=== PATIENT | male | born 1940 | race Caucasian/White ===

== ENCOUNTER 2024-03-18 08:02 | Outpatient (OUT) | payer MEDICARE, OTHER, SELFPAY ==
--- NOTE | 2024-03-18 08:32 | XR_ITS ---
The [address] [address] Patient Name: JERAD CARRANZA MRN: [id number] date: 1940 Sex: M Assigned Patient Location: LAB Current Patient Location: Accession/Order Number: [id number] Exam Date: 03/18/2024 08:42 Report Date: 03/19/2024 04:58 At the request of: EDVIN HANKS Procedure: XR chest 2V EXAMINATION: XR chest 2V HISTORY: Dyspnea On Exertion, Mucopurulent Chronic Bronchitis COMPARISON: XR ribs with chest 11/19/2018 FINDINGS: LUNGS: Stable small dense nodule lateral right upper lobe, likely granuloma. Mild chronic interstitial changes. No acute infiltrates. VASCULATURE: No increased pulmonary vasculature. PLEURA: No pneumothorax, effusion, or pleural thickening. CARDIAC: No cardiomegaly or cardiac silhouette abnormality. MEDIASTINUM: No visible mass or adenopathy. BONES: No fracture or visible bone lesion. OTHER: Negative. XR/XR chest 2V IMPRESSION: 1. No acute cardiopulmonary process. 2. Stable mild chronic interstitial changes. Electronically authenticated by: ELIS LAZO Date: 03/19/2024 04:58
[2024-03-18 08:44] LABS: Basophils Absolute Auto 0.1 10^3/uL (0.0-0.1); Basophils Percent Auto 0.9 % (0.2-2.0); Eosinophils Absolute Auto 0.1 10^3/uL (0.0-0.7); Eosinophils Percent Auto 2.4 % (0.9-7.0); Hematocrit 46.4 % (42.0-54.0); Hemoglobin 15.2 g/dL (14.0-18.0); Immature Granulocytes Abs Auto 0.02 10^3/uL (0.00-0.03); Immature Granulocytes Pct Auto 0.4 % (0.0-0.5); Lymphocytes Absolute Auto 1.2 10^3/uL (1.2-3.8); Lymphocytes Percent Auto 22.2 % (20.5-60.0); Mean Corpuscular HGB Conc 32.8 g/dL (29.9-35.2); Mean Corpuscular Hemoglobin 31.3 pg (25.9-34.0); Mean Corpuscular Volume 95.7 fL (80.0-94.0); Mean Platelet Volume 11.4 fL (9.5-13.5); Monocytes Absolute Auto 0.5 10^3/uL (0.3-0.8); Monocytes Percent Auto 8.3 % (1.7-12.0); Neutrophils Absolute Auto 3.6 10^3/uL (1.4-6.5); Neutrophils Percent Auto 65.8 % (43.0-75.0); Platelet Count 172 10^3/uL (150-450); Red Blood Count 4.85 10^6/uL (4.70-6.10); Red Cell Distribution Width 12.8 % (11.0-15.0); White Blood Count 5.5 10^3/uL (4.0-11.0)
[2024-03-18 08:56] LABS: Microalbumin Urine Random <1.3 mg/dL (<=30.0)
[2024-03-18 09:15] LABS: Alanine Aminotransferase 24 U/L (16-63); Albumin Globulin Ratio 1.1; Alkaline Phosphatase 85 U/L (46-116); Anion Gap 12.2; Aspartate Amino Transferase 14 U/L (15-37); BUN Creatinine Ratio 16.2; Calcium 9.4 mg/dL (8.5-10.1); Carbon Dioxide 29.2 mmol/L (21.0-32.0); Chloride 104 mmol/L (98-107); Chol HDL Ratio 3.5; Cholesterol 160 mg/dL (<=200); Estimated GFR (African America >60 (>=60 mL/min/1.73m^2); Estimated GFR (Non-African Ame >60 (>=60 mL/min/1.73m^2); Globulin 3.6 g/dL; Glucose 124 mg/dL (74-106); HDL Cholesterol 46 mg/dL (40-60); LDL Cholesterol Calculated 85.4 mg/dL; Potassium 4.4 mmol/L (3.5-5.1); Sodium 141 mmol/L (136-145); Thyroid Stimulating Hormone 2.764 uIU/mL (0.358-3.740); Total Protein 7.6 g/dL (6.4-8.2); Triglycerides 143 mg/dL (<=150); VLDL CHOLESTEROL 28.6 mg/dL
[2024-03-18 09:30] LABS: Estimated Average Glucose 126 mg/dL
[2024-03-19 08:12] LABS: Prolactin 13.1 ng/mL (3.6-32.0)
== END 2024-03-18 08:03 | disposition home or self-care (01) ==
LOC: LAB 08:12
PROVIDERS: PCP Internal Medicine; Visit Provider Internal Medicine
DX: E11.65 Type 2 diabetes mellitus with hyperglycemia (principal); E22.1 Hyperprolactinemia; E78.00 Pure hypercholesterolemia, unspecified; J41.1 Mucopurulent chronic bronchitis; I10 Essential (primary) hypertension; R53.83 Other fatigue; R06.09 Other forms of dyspnea
CPT/HCPCS: 36415; 71046; 80053; 80061; 82043; 83036; 84146; 84443; 85025

== ENCOUNTER 2024-08-16 12:12 | Outpatient (OUT) | payer MEDICARE, OTHER, SELFPAY ==
[2024-08-16 12:31] LABS: Basophils Percent Auto 0.3 % (0.2-2.0); Eosinophils Percent Auto 0.1 % (0.9-7.0); Hematocrit 43.4 % (42.0-54.0); Hemoglobin 14.7 g/dL (14.0-18.0); Immature Granulocytes Abs Auto 0.03 10^3/uL (0.00-0.03); Immature Granulocytes Pct Auto 0.3 % (0.0-0.5); Lymphocytes Absolute Auto 0.8 10^3/uL (1.2-3.8); Lymphocytes Percent Auto 8.4 % (20.5-60.0); Mean Corpuscular HGB Conc 33.9 g/dL (29.9-35.2); Mean Corpuscular Hemoglobin 31.5 pg (25.9-34.0); Mean Corpuscular Volume 93.1 fL (80.0-94.0); Mean Platelet Volume 11.3 fL (9.5-13.5); Monocytes Absolute Auto 0.5 10^3/uL (0.3-0.8); Monocytes Percent Auto 5.3 % (1.7-12.0); Neutrophils Absolute Auto 7.8 10^3/uL (1.4-6.5); Neutrophils Percent Auto 85.6 % (43.0-75.0); Platelet Count 198 10^3/uL (150-450); Red Blood Count 4.66 10^6/uL (4.70-6.10); Red Cell Distribution Width 12.6 % (11.0-15.0); White Blood Count 9.1 10^3/uL (4.0-11.0)
--- OUTSIDE RECORDS SUMMARY | 2024-08-16 12:38 | XMS_ITS | CCD ---
Author Organization [facility] CliniSywv Care Team Providers Care Donor Relations Officer Name Role Phone MURPHY, DR PARDO Primary Care Unavailable DEMETRIS ., THADDEUS Admitting Unavailable DEMETRIS ., THADDEUS Attending Unavailable DEMETRIS ., THADDEUS Consulting Unavailable HEGG, MARIELOS Consulting Unavailable BALL, DR PARDO Admitting Unavailable BALL, DR PARDO Attending Unavailable BALL, DR PARDO Primary Care Unavailable BALL, DR PARDO Admitting Unavailable BALL, DR PARDO Attending Unavailable BALL, DR PARDO Primary Care Unavailable BALL, DR PARDO Admitting Unavailable BALL, DR PARDO Attending Unavailable BALL, DR PARDO Primary Care Unavailable BALL, DR PARDO Referring Unavailable BALL, DR PARDO Consulting Unavailable BALL, DR PARDO Admitting Unavailable BALL, DR PARDO Attending Unavailable BALL, DR PARDO Primary Care Unavailable BALL, DR PARDO Consulting Unavailable ZIEBER, DR ELIS Rdz Consulting Unavailable BALL, DR PARDO Admitting Unavailable BALL, DR PARDO Attending Unavailable BALL, DR PARDO Primary Care Unavailable BALL, DR PARDO Consulting Unavailable BALL, DR PARDO Admitting Unavailable BALL, DR PARDO Attending Unavailable BALL, DR PARDO Primary Care Unavailable BALL, DR PARDO Consulting Unavailable MURPHY, ABDIAZIZ Primary Care Physician [phone] Mikhail HOBSON Attending Unavailable Ball, Abdiaziz Unavailable Cortez Tobias MD, Jay Unavailable Unavailabl e Cortez Tobias MD, Jay Unavailable Unavailabl e Al Shweiki, Jay Attending Unavailable Al Shweiki, Jay Referring Unavailable Al Shweiki, Jay Attending Unavailable Al Shweiki, Jay Referring Unavailable Al Shweiki, Jay Attending Unavailable Al Shweiki, Jay Referring Unavailable Al Shweiki, Jay Attending Unavailable Al Shweiki, Jay Referring Unavailable Al Shweiki, Jay Attending Unavailable Al Shweiki, Jay Attending Unavailable Al Shweiki, Jay Referring Unavailable Corporate, Doctor Attending Unavailable BALL, ABDIAZIZ Referring Unavailable BALL, ABDIAZIZ Referring Unavailable BALL, ABDIAZIZ Referring Unavailable Allergies Allergy Classification Reported Allergen(s) Allergy Type Date of Onset Reaction(s) Facility (1 source) eclidinium / vilanterol Drug Allergy Unknown [facility] Other (2 sources) Anoro Ellipta *ANTIASTHMATIC AND BRONCHODILATOR AG Propensity to adverse reactions Comment:Dizzy [facility] Other (2 sources) umeclidinium Drug Allergy 03-16-20 [facility] (2 sources) vilanterol Drug Allergy 03-16-20 [facility] Medications Current Medications Medication Drug Class(es) Dates Sig (Normalized) Sig (Original) amLODIPine 2.5 mg oral tablet (2 sources) Dihydropyridine Calcium Channel Raymundo take 1 tablet by mouth once daily amlodipine 2.5 mg tablet take 1 tablet by oral route every day 2.5 MG - Active atorvastatin 80 mg oral tablet (10 sources) HMG-CoA Reductase Inhibitor Start: 01-01-2024 take 1 tablet by mouth once daily in the evening Atorvastatin 80 mg tablet Active 0 .ROUTE .COMPLEX January 01, 2024 6:04am TAKE 1 TABLET BY MOUTH EVERY EVENING Start: 10-01-2023 End: 01-01-2024 take 1 tablet by mouth once daily Atorvastatin 80 mg tablet Discontinued 80 MG PO Daily September 30, 2023 11:00pm January 01, 2024 6:04am losartan potassium 25 mg oral tablet (8 sources) Angiotensin 2 Receptor Raymundo Start: 02-06-2024 take 1 tablet by mouth once daily Losartan 25 mg tablet Active 0 .ROUTE .COMPLEX February 06, 2024 5:47am TAKE 1 TABLET BY MOUTH EVERY DAY Start: 02-06-2024 take 1 tablet by hilda th once daily Losartan Active 0 .ROUTE .COMPLEX February 06, 2024 6:47am TAKE 1 TABLET BY MOUTH EVERY DAY Start: 10-01-2023 End: 02-06-2024 take 1 tablet by mouth once daily Losartan 25 mg tablet Discontinued 25 MG PO Daily September 30, 2023 11:00pm February 06, 2024 5:47am take 1 tablet by hilda th once daily Losartan Potassium 25 MG TAKE 1 TABLET BY MOUTH EVERY DAY Active Completed/Discontinued Medications Medication Drug Class(es) Dates Sig (Normalized) Sig (Original) ipratropium bromide 0.042 mg/actuat metered dose nasal spray (4 sources) Anticholinergic Start: 04-09-2024 End: 08-06-2024 take 2 spray(s) nasal route three times daily Ipratropium [place] 42 mcg (0.06 %) spray,non-aerosol Discontinued 0 .ROUTE .COMPLEX 45 May 23, 2024 9:14am August 06, 2024 10:39am INSTILL 2 SPRAYS INTO EACH NOSTRIL 3 TIMES A DAY Start: 03-16-2024 End: 04-09-2024 take 1 spray(s) nasal route three times daily Ipratropium [place] 42 mcg (0.06 %) spray,non-aerosol Discontinued 2 SPRAY INTRANASAL Three times daily March 15, 2024 11:00pm April 09, 2024 11:35am administer into each nostril Problems Active Problems Problem Classification Problem Date Documented Da te Episodic/Chronic Calculus of urinary tract (1 source) Personal history of urinary calculi; Translations: [PERSONAL HISTORY OF URINARY CALCULI] Onset: 08-23-2022 Episodic Cardiac dysrhythmias (3 sources) Palpitations; Translations: [Palpitations] Episodic Cataract (20 sources) Presence of intraocular lens; Translations: [Senile nuclear sclerosis] Chronic Chronic obstructive pulmonary disease and bronchiectasis (17 sources) Mucopurulent chronic bronchitis; Translations: [Mucopurulent chronic bronchitis] Chronic Conditions associated with dizziness or vertigo (10 sources) Benign paroxysmal positional vertigo; Translations: [Benign paroxysmal vertigo, left ear] Onset: 08-23-2024 Episodic Diabetes mellitus with complications (16 sources) Type 2 diabetes mellitus with diabetic polyneuropathy; Translations: [Type 2 diabetes mellitus with hyperglycemia] Onset: 05-20-2022 Chronic Disorders of lipid metabolism (19 sources) Mixed hyperlipidemia; 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] Onset: 05-17-2022 Chronic Essential hypertension (20 sources) Essential (primary) hypertension; Translations: [Essential hypertension] Onset: 12-27-2021 Chronic Glaucoma (6 sources) Open angle with borderline findings, low risk, bilateral; Translations: [Preglaucoma, unspecified, bilateral] Chronic Hyperplasia of prostate (4 sources) Benign prostatic hyperplasia without lower urinary tract symptoms; Translations: [Lower urinary tract symptoms due to benign prostatic hypertrophy] Onset: 08-23-2022 Chronic Inflammation; infection of eye (except that caused by tuberculosis or sexually transmitteddisease) (1 source) Unspecified optic neuritis; 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] Onset: 08-03-2024 Chronic Malaise and fatigue (1 source) Other fatigue Episodic Other aftercare (1 source) long-term (current) use of antithrombotics/antip latelets; Translations: [RESIDENTIAL ANTITHROMBOT/ANTIPLAT LETS] Onset: 08-23-2022 Episodic Other aftercare (1 source) 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; Translations: [OTH RESIDENTIAL CURRENT DRUG THERAPY] Onset: 08-23-2022 Episodic Other aftercare (3 sources) H/O: high risk medication; Translations: [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] Episodic Other and unspecified benign neoplasm (6 sources) Benign neoplasm of pituitary gland; 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] Onset: 05-20-2022 Episodic Other circulatory disease (1 source) Personal history of transient ischemic attack (TIA), and cerebral infarction without residual deficits; Translations: [PERS HX TIA AND CI NO RESID DEFICIT] Onset: 08-23-2022 Episodic Other circulatory disease (3 sources) History of cerebrovascular accident without residual deficits; Translations: [Personal history of transient ischemic attack (TIA), and cerebral infarction without residual deficits] Episodic Other endocrine disorders (2 sources) Hyperprolactinemia; Translations: [Hyperprolactinemia] 03-13-2024 Chronic Other endocrine disorders (1 source) Hyperprolactinemia; 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] 08-06-2024 Chronic Other gastrointestinal disorders (4 sources) Dysphagia, unspecified; Translations: [DYSPHAGIA UNSPECIFIED] Onset: 06-09-2022 Episodic Other lower respiratory disease (4 sources) Dyspnea on exertion; Translations: [Other forms of dyspnea] 03-16-2024 Episodic Other lower respiratory disease (1 source) Other forms of dyspnea; Translations: [Other respiratory abnormalities] 08-06-2024 Episodic Other nervous system disorders (3 sources) History of retinal hemorrhage; Translations: [Personal history of other diseases of the nervous system and sense organs] Episodic Other nervous system disorders (3 sources) General unsteadiness; Translations: [Unsteadiness on feet] Episodic Other nervous system disorders (1 source) Unsteadiness on feet Episodic Other screening for suspected conditions (not mental disorders or infectious disease) (8 sources) Elevated prostate specific antigen [PSA]; Translations: [Encounter for screening for malignant neoplasm of prostate] Onset: 05-20-2022 Episodic Other upper respiratory disease (1 source) Vasomotor rhinitis; Translations: [Vasomotor rhinitis] 03-16-2024 Chronic Retinal detachments; defects; vascular occlusion; and retinopathy (20 sources) 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; Translations: [Exudative age-related macular degeneration, left eye, with active choroidal neovascularization] Onset: 10-03-2020 10-03-2020 Chronic Retinal detachments; defects; vascular occlusion; and retinopathy (3 sources) Serous retinal detachment; Translations: [Serous retinal detachment, left eye] Episodic Screening and history of mental health and substance abuse codes (1 source) Personal history of nicotine dependence; Translations: [PERSONAL HISTORY OF NICOTINE DEPEND] Onset: 08-23-2022 Episodic Substance-related disorders (10 sources) Tobacco dependence in remission; Translations: [Nicotine dependence, cigarettes, in remission] Chronic Unclassified (3 sources) LOW BACK PAIN, UNSPECIFIED; Translations: [LOW BACK PAIN, UNSPECIFIED] Onset: 08-23-2022 Urinary tract infections (1 source) Cystitis, unspecified without hematuria; Translations: [CYSTITIS UNS WITHOUT HEMATURIA] Onset: 08-23-2022 Episodic Past or Other Problems Problem Classification Problem Date Documented Da te Episodic/Chronic Other gastrointestinal disorders (1 source) Dysphagia, pharyngeal phase; Translations: [DYSPHAGIA PHARYNGEAL PHASE] Onset: 05-23-2022 Episodic Other gastrointestinal disorders (4 sources) Dysphagia, oropharyngeal phase; Translations: [DYSPHAGIA OROPHARYNGEAL PHASE] Onset: 05-15-2022 Episodic Unclassified (1 source) LOW BACK PAIN, UNSPECIFIED; Translations: [LOW BACK PAIN, UNSPECIFIED] Onset: 08-21-2022 Unclassified (20 sources) AMD (chief complaint) Onset: 11-28-2021 Resolved: 01-27-2024 Unclassified (12 sources) Exudative ARMD (chief complaint) Onset: 2022 Resolved: 11-06-2023 Unclassified (2 sources) Follow Up of AMD (chief complaint) Onset: 02-05-2023 Unclassified (14 sources) macular degeneration followup (chief complaint) Onset: 08-02-2020 Resolved: 07-17-2022 Unclassified (2 sources) injection of Avastin (chief complaint) Onset: 03-28-2022 Unclassified (2 sources) possible Avastin intravitreal injection (chief complaint) Onset: 02-20-2022 Unclassified (2 sources) IO-Eylea OU AMD (chief complaint) Onset: 08-22-2021 Unclassified (2 sources) vision changes (chief complaint) Onset: 07-25-2021 Unclassified (4 sources) AMD (chief complaint) stable vision (chief complaint) Onset: 01-18-2020 Resolved: 06-20-2021 Unclassified (2 sources) AMD (chief complaint) no changes (chief complaint) blurry vision (chief complaint) Onset: 02-14-2021 Unclassified (2 sources) 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 (chief complaint) Onset: 12-13-2020 Unclassified (2 sources) Wet AMD (chief complaint) decreased vision (chief complaint) Onset: 10-03-2020 Unclassified (4 sources) AMD (chief complaint) decreased vision (chief complaint) Onset: 12-07-2019 Resolved: 07-05-2020 Unclassified (2 sources) macular degeneration followup (chief complaint) decreased vision (chief complaint) Onset: 05-16-2020 Unclassified (2 sources) AMD (chief complaint) occasional red flash (chief complaint) Onset: 03-28-2020 Unclassified (2 sources) macular degeneration (chief complaint) decrease in vision (chief complaint) Onset: 10-27-2019 Unclassified (2 sources) macular degeneration (chief complaint) dark vision (like behind a thick cloud) (chief complaint) Onset: 08-16-2019 Unclassified (1 source) macular degeneratio (chief complaint) Onset: 05-18-2024 Results Test Name Value Interpretation Reference Range Facility Lab Reportson 09-18-2022 Lab Reports [id number] .00CD:127 Normal [facility] Lab Reports [id number] .00CD:127 [facility] Lab Reports [id number] .00CD:127 Normal [facility] RAD - CT Reporton 09-18-2022 RAD - CT Report [id number] .00CD:127 Normal [facility] CBC AUTO DIFFon 08-21-2022 BASO # 0.1 103/ul Normal 0.0-0.1 [facility] Comment on above: Performed By: #### C BC ####[facility] [address] [place] [address]Dr. Howie Sanford Basophils/100 WBC (Bld) 0.8 % Normal 0.2-2.0 [facility] Comment on above: Performed By: #### C BC ####[facility] [address] [place], [place] [address]Dr. Howie Safnord EO # 0.1 103/ul Normal 0.0-0.7 [facility] Comment on above: Performed By: #### C BC ####[facility] [address] [place], [place] [address]Dr. Howie Sanford Eosinophils/100 WBC (Bld) 1.8 % Normal 0.9-7.0 [facility] Comment on above: Performed By: #### C BC ####[facility] [address] [place], [place] [address]Dr. Howie Sanford Erythrocyte distribution width (RBC) [Ratio] 13.1 % Normal 11.0-15.0 [facility] Comment on above: Performed By: #### C BC ####[facility] [address] [place], [place] [address]Dr. Howie Sanford Hematocrit (Bld) [Volume fraction] 46.9 % Normal 42.0-54.0 [facility] Comment on above: Performed By: #### C BC ####[facility] [address] [place], [place] [address]Dr. Howie Sanford Hemoglobin (Bld) [Mass/Vol] 15.6 g/dL Normal 14.0-18.0 [facility] Comment on above: Performed By: #### C BC ####[facility] [address] [place], [place] [address]Dr. Howie Sanford IG # 0.01 10e3/ul Normal 0.00-0.03 [facility] Comment on above: Performed By: #### C BC ####[facility] [address] [place] [address]Dr. Howie Sanford IG % 0.2 % Normal 0.0-0.5 [facility] Comment on above: Performed By: #### C BC ####[facility] [address] [address]DrAnne Howie Sanford LYMPH # 0.8 103/ul Critically low 1.2-3.8 [facility] Comment on above: Performed By: #### C BC ####[facility] [address] [place] [address]DrAnne Howie Juvenal Lymphocytes/100 WBC (Bld) 14.0 % Critically low 20.5-60.0 [facility] Comment on above: Performed By: #### C BC ####[facility] [address] [place], [place] [address]Dr. Howie Juvenal MANUAL DIFF REQ NO Normal [facility] Comment on above: Performed By: #### C BC ####[facility] [address] [place] [address]Dr. Howie Sanford MCH (RBC) [Entitic mass] 30.6 pg Normal 25.9-34.0 [facility] Comment on above: Performed By: #### C BC ####[facility] [address] [place] [address]Dr. Howie Juvenal MCHC (RBC) [Mass/Vol] 33.3 g/dL Normal 29.9-35.2 [facility] Comment on above: Performed By: #### C BC ####[facility] [address] [place] [address]DrAnne Howie Juvenal MCV (RBC) [Entitic vol] 92.1 fL Normal 80.0-94.0 [facility] Comment on above: Performed By: #### C BC ####[facility] [address] [place], [place] [address]DrAnne Howie Juvenal MONO # 0.5 103/ul Normal 0.3-0.8 [facility] Comment on above: Performed By: #### C BC ####[facility] [address] [place] [address]Dr. Howie Sanford Monocytes/100 WBC (Bld) 7.7 % Normal 1.7-12.0 [facility] Comment on above: Performed By: #### C BC ####[facility] [address] [place] [address]Dr. Howie Sanford NEUT # 4.5 103/ul Normal 1.4-6.5 [facility] Comment on above: Performed By: #### C BC ####[facility] [address] [place] [address]Dr. Howie Sanford Neutrophils/100 WBC (Bld) 75.5 % Critically high 43.0-75.0 [facility] Comment on above: Performed By: #### C BC ####[facility] [address] [place], [place] [address]Dr. Howie Sanford Platelet mean volume (Bld) [Entitic vol] 11.4 fL Normal 9.5-13.5 [facility] Comment on above: Performed By: #### C BC ####[facility] [address] [place], [place] [address]Dr. Howie Sanford PLT 203 103/ul Normal 150-450 [facility] Comment on above: Performed By: #### C BC ####[facility] [address] [place], [place] [address]Dr. Howie Sanford RBC 5.09 106/ul Normal 4.70-6.10 [facility] Comment on above: Performed By: #### C BC ####[facility] [address] [place], [place] [address]Dr. Howie Sanford WBC 6.0 103/ul Normal 4.0-11.0 [facility] Comment on above: Performed By: #### C BC ####[facility] [address] [place], [place] [address]Dr. Howie Juvenal CT ABD/PELVIS WO CONon 08-21 CT ABD/PELVIS WO CON EXAM: CT scan of th e abdomen and pelvis without contrast. Dose reduction technique used: Automated exposure control and/or adjustment of the mA and/or kV according to patient size and/or use of iterative reconstruction technique. REASON FOR EXAM: CALCULUS OF KIDNEY COMPARISON: None FINDINGS: Mild diffuse bladder wall thickening. Enlarged prostate. Multiple bilateral renal cysts. Colonic diverticulosis. Small fat-containing umbilical hernia. Emphysematous changes in both lungs. Scarring and/or linear atelectasis in the lower lungs bilaterally. No renal, ureteral or bladder calculi. No hydronephrosis. No evidence of appendicitis. No free intraperitoneal air. No free fluid in the abdomen or pelvis. No dilated or thickened loops of small bowel or colon. Liver, pancreas, spleen, bilateral kidneys, and bilateral adrenal glands are otherwise unremarkable within the limitations of noncontrast CT. No lymphadenopathy in the abdomen or pelvis. Remainder unremarkable. IMPRESSION: 1. Bladder wall thickening is likely related to chronic outlet obstruction although cystitis cannot be excluded, correlate clinically. 2. Otherwise, no acute abnormalities in the abdomen or pelvis. Electronically authenticated by: MARIELOS CAMPOS Date: 2022-08-21 13:31 Normal [facility] CULTURE URINEon 08-21-2022 CULTURE URINE Culture Observations : NO GROWTH. Normal [facility] Comment on above: Performed By: #### U RCX #### [facility] [address] [place] [address] Dr. Howie Sanford ER URINE PROFILEon 3 Bilirubin Ql (U) Negative Normal NEGATIVE [facility] Comment on above: Performed By: #### U MICRO, ERUR #### [facility] [address] [place] [address] Dr. Howie Sanford Clarity (U) CLEAR Normal CLEAR [facility] Comment on above: Performed By: #### U MICRO, ERUR #### [facility] [address] [place] [address] Dr. Howie Sanford Color (U) LT. YELLOW Normal YELLOW [facility] Comment on above: Performed By: #### U MICRO, ERUR #### [facility] [address] [place] [address] Dr. Howie Sanford ERUAHD A micrscopic examination will be performed if indicated. Normal [facility] Comment on above: Performed By: #### U MICRO, ERUR #### [facility] [address] [address] [address] Howie Sanford Glucose Ql (U) Negative Normal NEGATIVE [facility] Comment on above: Performed By: #### U MICRO, ERUR #### [facility] [address] [place] [address] Dr. Howie Sanford Hemoglobin Ql (U) Negative Normal NEGATIVE [facility] Comment on above: Performed By: #### U MICRO, ERUR #### [facility] [address] [address] [address] Howie Sanford Ketones Ql (U) Negative Normal NEGATIVE [facility] Comment on above: Performed By: #### U MICRO, ERUR #### [facility] [address] [place] [address] Dr. Howie Sanford LEUKOCYTES Negative Normal NEGATIVE [facility] Comment on above: Performed By: #### U MICRO, ERUR #### [facility] [address] [place] [address] Dr. Howie Sanford Nitrite Ql (U) Negative Normal NEGATIVE [facility] Comment on above: Performed By: #### U MICRO, ERUR #### [facility] [address] [place] [address] Dr. Howie Sanford pH (U) 5.5 [pH] Normal 5-9 [facility] Comment on above: Performed By: #### U MICRO, ERUR #### [facility] [address] [address] [address] Howie Sanford Protein (U) [Mass/Vol] 100 mg/dL Abnormal NEGATIVE/ TRACE [facility] Comment on above: Performed By: #### U MICRO, ERUR #### [facility] [address] [place] [address] Dr. Howie Sanford SPEC GRAVITY >=1.030 Abnormal 1.005-<=1.025 [facility] Comment on above: Performed By: #### U MICRO, ERUR #### [facility] [address] [place] [address] Dr. Howie Sanford UR MICRO IND INDICATED Normal [facility] Comment on above: Performed By: #### U MICRO, ERUR #### [facility] [address] [address] [address] Howie Sanford Urobilinogen Qn (U) 0.2 {Adolfo'U}/dL Normal 0.2 - 1. 0 [facility] Comment on above: Performed By: #### U MICRO, ERUR #### [facility] [address] [address] [address] Howie Sanford PROF 14(COMP METB)on 023 Albumin [Mass/Vol] 4.2 g/dL Normal 3.4-5.0 [facility] Comment on above: Performed By: #### C MP ####[facility] [address] [address]DrAnne Sanford Albumin/Globulin [Mass ratio] 1.2 {ratio} Normal [facility] Comment on above: Performed By: #### C MP ####[facility] [address] [place] [address]Dr. Howie Sanford ALP [Catalytic activity/Vol] 99 U/L Normal 46-116 [facility] Comment on above: Performed By: #### C MP ####[facility] [address] [place] [address]Dr. Howie Sanford ALT [Catalytic activity/Vol] 23 U/L Normal 16-63 [facility] Comment on above: Performed By: #### C MP ####[facility] [address] [place] [address]DrAnne Sanford Anion gap [Moles/Vol] 8.9 mmol/L Normal [facility] Comment on above: Performed By: #### C MP ####[facility] [address] [place] [address]DrAnne Sanford AST [Catalytic activity/Vol] 16 U/L Normal 15-37 [facility] Comment on above: Performed By: #### C MP ####[facility] [address] [place], [place] [address]Dr. Howie Sanford Bilirubin [Mass/Vol] 0.5 mg/dL Normal 0.2-1.0 [facility] Comment on above: Performed By: #### C MP ####[facility] [address] [place] [address]Dr. Howie Sanford Calcium [Mass/Vol] 9.2 mg/dL Normal 8.5-10.1 The [facility] Comment on above: Performed By: #### C MP ####[facility] [address] [place], [place] [address]Dr. Howie Sanford Chloride [Moles/Vol] 104 mmol/L Normal 98-107 [facility] Comment on above: Performed By: #### C MP ####[facility] [address] [place], [place] [address]Dr. Howie Sanford CO2 [Moles/Vol] 28.3 mmol/L Normal 21.0-32.0 [facility] Comment on above: Performed By: #### C MP ####[facility] Hbpe[address]war[address] [place], [place] [address]Dr. Howie Sanford Creatinine [Mass/Vol] 0.90 mg/dL Normal 0.70-1.30 [facility] Comment on above: Performed By: #### C MP ####[facility] Q[address] [place], [place] [address]Dr. Howie Sanford EGFR-AF SYRIAN >60 Normal >=60 [facility] Comment on above: Performed By: #### C MP ####[facility] W[address] [place], [place] [address]Dr. Howie Juvenal EGFR-NON AF SYRIAN >60 Normal >=60 [facility] Comment on above: Performed By: #### C MP ####[facility] Pb[address] [place], [place] [address]Dr. Howie Juvenal Globulin (S) [Mass/Vol] 3.6 g/dL Normal [facility] Comment on above: Performed By: #### C MP ####[facility] Mqfmd[address]qac[address] [place], [place] [address]Dr. Howie Juvenal Glucose [Mass/Vol] 105 mg/dL Normal 74-106 [facility] Comment on above: Performed By: #### C MP ####[facility] [address] [place] [address]Dr. Howie Sanford Potassium [Moles/Vol] 4.2 mmol/L Normal 3.5-5.1 [facility] Comment on above: Performed By: #### C MP ####[facility] [address] [place] [address]Dr. Howie Sanford Protein [Mass/Vol] 7.8 g/dL Normal 6.4-8.2 [facility] Comment on above: Performed By: #### C MP ####[facility] [address] [place] [address]Dr. Howie Sanford Sodium [Moles/Vol] 137 mmol/L Normal 136-145 [facility] Comment on above: Performed By: #### C MP ####[facility] [address] [place] [address]Dr. Howie Sanford Urea nitrogen [Mass/Vol] 17.0 mg/dL Normal 7.0-18.0 [facility] Comment on above: Performed By: #### C MP ####[facility] S[address] [place], [place] [address]Dr. Howie Sanford Urea nitrogen/Creatinine [Mass ratio] 18.9 mg/mg Normal [facility] Comment on above: Performed By: #### C MP ####[facility] K[address] [place], [place] [address]DrAnne Sanford URINE MICROSCOPIC ONLYon BACTERIA SMALL Abnormal NONE SEEN [facility] Comment on above: Performed By: #### U MICRO, ERUR #### [facility] [address] [place] [address] Dr. Howie Sanford Bacteria identified Cx Nom (U) INDICATED Normal [facility] Comment on above: Result Comment: Prev iously reported as: NOT INDICATED On 08/21/2022 15:20 By DM9 Performed By: #### U MICRO, ERUR #### [facility] [address] [place] [address] Dr. Howie Sanford CAST NONE SEEN Normal NONE SEEN [facility] Comment on above: Performed By: #### U MICRO, ERUR #### [facility] [address] [address] [address] Howie Sanford Crystals LM Nom (Urine sed) NONE SEEN Normal NONE SEEN [facility] Comment on above: Performed By: #### U MICRO, ERUR #### [facility] [address] [address] [address] Howie Sanford Epithelial cells LM Ql (Urine sed) RARE Normal NONE SEEN /RARE [facility] Comment on above: Performed By: #### U MICRO, ERUR #### [facility] [address] [address] [address] Howie Sanford MUCOUS TRACE Abnormal NONE SEEN [facility] Comment on above: Performed By: #### U MICRO, ERUR #### [facility] [address] [place] [address] Dr. Howie Sanford RBC 2-5 Abnormal 0-2 [facility] Comment on above: Performed By: #### U MICRO, ERUR #### [facility] [address] [address] [address] Howie Sanford SPERMATOZOA, UR PRESENT Abnormal The [facility] Comment on above: Performed By: #### U MICRO, ERUR #### [facility] [address] [place] [address] Dr. Howie Sanford WBC 5-10 Abnormal NONE SEEN [facility] Comment on above: Performed By: #### U MICRO, ERUR #### [facility] [address] [address] [address] Howie Sanford PSA, FREE AND TOTAL RATIOon 08-17-2022 % Free PSA 34.2 % Normal [facility] Comment on above: Result Comment: The table below lists the probability of prostate cancer for men with non-suspicious LITO results and total PSA between 4 and 10 ng/mL, by patient age (Waleska et al, JAMIE 1998, 279:1542). % Free PSA 50-64 yr 65-75 yr 0.00-10.00% 56% 55% 10.01-15.00% 24% 35% 15.01-20.00% 17% 23% 20.01-25.00% 10% 20% >25.00% 5% 9% Please note: Waleska et al did not make specific recommendations regarding the use of percent free PSA for any other population of men. Performed By: #### P SAFREE ####[facility] [address] [place] [address]DrAnne Sanford Prostate specific Ag [Mass/Vol] 3.3 ng/mL Normal 0.0-4.0 [facility] Comment on above: Result Comment: Santosh [place] methodology. . According to the [employer], Serum PSA should decrease and remain at undetectable levels after radical prostatectomy. The AUA defines biochemical recurrence as an initial PSA value 0.2 ng/mL or greater followed by a subsequent confirmatory PSA value 0.2 ng/mL or greater. Values obtained with different assay methods or kits cannot be used interchangeably. Results cannot be interpreted as absolute evidence of the presence or absence of malignant disease. Performed By: #### P SAFREE ####[facility] [address] [place] [address]Dr. Howie Sanford PSA, Free 1.13 ng/mL Normal N/A [facility] Comment on above: Result Comment: Santosh [place] methodology. Performed By: #### P SAFREE ####[facility] [address] [place] [address]Dr. Howie Sanford PROLACTINon 05-18-2022 Prolactin 16.4 ng/mL Critically high 4.0-15.2 [facility] Comment on above: Performed By: #### P ROLAC #### [facility] [address] [place] [address] Dr. Howie Sanford CBC AUTO DIFFon 05-17-2022 BASO # 0.0 103/ul Normal 0.0-0.1 [facility] Comment on above: Performed By: #### C BC #### [facility] [address] [address] [address] Howie Sanford Basophils/100 WBC (Bld) 0.6 % Normal 0.2-2.0 [facility] Comment on above: Performed By: #### C BC #### [facility] [address] [place] [address] Dr. Howie Sanford EO # 0.1 103/ul Normal 0.0-0.7 [facility] Comment on above: Performed By: #### C BC #### [facility] [address] [place] [address] Dr. Howie Sanford Eosinophils/100 WBC (Bld) 2.0 % Normal 0.9-7.0 [facility] Comment on above: Performed By: #### C BC #### [facility] [address] [place] [address] Dr. Howie Sanford Erythrocyte distribution width (RBC) [Ratio] 12.6 % Normal 11.0-15.0 [facility] Comment on above: Performed By: #### C BC #### [facility] [address] [place] [address] Dr. Howie Sanford Hematocrit (Bld) [Volume fraction] 43.5 % Normal 42.0-54.0 [facility] Comment on above: Performed By: #### C BC #### [facility] [address] [place] [address] Dr. Howie Sanford Hemoglobin (Bld) [Mass/Vol] 14.3 g/dL Normal 14.0-18.0 [facility] Comment on above: Performed By: #### C BC #### [facility] [address] [place] [address] Dr. Howie Sanford IG # 0.02 10e3/ul Normal 0.00-0.03 [facility] Comment on above: Performed By: #### C BC #### [facility] [address] [place] [address] Dr. Howie Sanford IG % 0.4 % Normal 0.0-0.5 [facility] Comment on above: Performed By: #### C BC #### [facility] [address] [place] [address] Dr. Howie Sanford LYMPH # 1.0 103/ul Critically low 1.2-3.8 The [facility] Comment on above: Performed By: #### C BC #### [facility] [address] [place] [address] Dr. Howie Sanford Lymphocytes/100 WBC (Bld) 20.1 % Critically low 20.5-60.0 [facility] Comment on above: Performed By: #### C BC #### [facility] [address] [place] [address] Dr. Howie Sanford MANUAL DIFF REQ NO Normal [facility] Comment on above: Performed By: #### C BC #### [facility] [address] [place] [address] Dr. Howie Sanford MCH (RBC) [Entitic mass] 30.4 pg Normal 25.9-34.0 [facility] Comment on above: Performed By: #### C BC #### [facility] [address] [place] [address] Dr. Howie Sanford MCHC (RBC) [Mass/Vol] 32.9 g/dL Normal 29.9-35.2 [facility] Comment on above: Performed By: #### C BC #### [facility] [address] [place] [address] Dr. Howie Sanford MCV (RBC) [Entitic vol] 92.6 fL Normal 80.0-94.0 [facility] Comment on above: Performed By: #### C BC #### [facility] [address] [place] [address] Dr. Howie Sanford MONO # 0.4 103/ul Normal 0.3-0.8 [facility] Comment on above: Performed By: #### C BC #### [facility] [address] [place] [address] Dr. Howie Sanford Monocytes/100 WBC (Bld) 8.1 % Normal 1.7-12.0 [facility] Comment on above: Performed By: #### C BC #### [facility] [address] [place] [address] Dr. Howie Sanford NEUT # 3.4 103/ul Normal 1.4-6.5 [facility] Comment on above: Performed By: #### C BC #### [facility] [address] [place] [address] Dr. Howie Sanford Neutrophils/100 WBC (Bld) 68.8 % Normal 43.0-75.0 [facility] Comment on above: Performed By: #### C BC #### [facility] [address] [address] [address] Howie Sanford Platelet mean volume (Bld) [Entitic vol] 11.0 fL Normal 9.5-13.5 [facility] Comment on above: Performed By: #### C BC #### [facility] [address] [address] [address] Howie Sanford PLT 213 103/ul Normal 150-450 [facility] Comment on above: Performed By: #### C BC #### [facility] [address] [address] [address] Howie Sanford RBC 4.70 106/ul Normal 4.70-6.10 [facility] Comment on above: Performed By: #### C BC #### [facility] [address] [address] [address] Howie Sanford WBC 4.9 103/ul Normal 4.0-11.0 [facility] Comment on above: Performed By: #### C BC #### [facility] [address] [address] [address] Howie Sanford GLYCOHEMOGLOBIN A1Con 2021 ADA RECOMMENDATION SEE BELOW Normal [facility] Comment on above: Result Comment: ADA RECOMMENDED LIMIT 4.0 - 6.0 ADA THERAPEUTIC TARGET < 7.0 ACTION SUGGESTED > 7.0 Performed By: #### A 1C ####[facility] [address] [place] [address]Dr. Howie Sanford Glucose [Mass/Vol] 140 mg/dL Normal The [facility] Comment on above: Performed By: #### A 1C ####[facility] [address] [place] [id number]. Howie Sanford HbA1c (Bld) [Mass fraction] 6.5 % Critically high 4.5-6.2 [facility] Comment on above: Performed By: #### A 1C ####[facility] [address] [place], [place] [address]DyDr. Howie Sanford LIPID PROFILEon 05-17-2022 CHOL-HDL RATIO NORM SEE BELOW Normal [facility] Comment on above: Result Comment: 3.3 - 4.4 LOW RISK 4.4 - 7.1 AVERAGE RISK 7.1 - 11.0 MODERATE RISK >11.0 HIGH RISK Performed By: #### B MP, ALT, LIPID #### [facility] [address] [address] [address] Howie Sanford Cholesterol [Mass/Vol] 140 mg/dL Normal <=200 [facility] Comment on above: Performed By: #### B MP, ALT, LIPID #### [facility] [address] [address] [address] Howie Sanford Cholesterol in HDL [Mass/Vol] 41 mg/dL Normal 40-60 [facility] Comment on above: Performed By: #### B MP, ALT, LIPID #### [facility] [address] [address] [address] Howie Sanford Cholesterol in LDL [Mass/Vol] 80.4 mg/dL Normal [facility] Comment on above: Performed By: #### B MP, ALT, LIPID #### [facility] [address] [address] [address] Howie Sanford Cholesterol.total/Cho lesterol in HDL [Mass ratio] 3.4 {ratio} Normal [facility] Comment on above: Performed By: #### B MP, ALT, LIPID #### [facility] [address] [address] [address] Howie Sanford HDL NORMAL > or = 60 mg/dl - LO W CARDIOVASCULAR RISK <40 mg/dl - HIGH CARDIOVASCULAR RISK Normal [facility] Comment on above: Performed By: #### B MP, ALT, LIPID #### [facility] [id number] Howie Sanford LDL CALC NORMAL SEE BELOW Normal [facility] Comment on above: Result Comment: <100 mg/dl OPTIMAL 100 - 129 mg/dl NEAR OR ABOVE OPTIMAL 130 - 159 mg/dl BORDERLINE HIGH 160 - 189 mg/dl HIGH >190 mg/dl VERY HIGH Performed By: #### B MP, ALT, LIPID #### [facility] [address] [address] [address] Howie Sanford Triglyceride [Mass/Vol] 93 mg/dL Normal <=150 [facility] Comment on above: Performed By: #### B MP, ALT, LIPID #### [facility] [address] [address] [address] Howie Sanford VLDL CALC 18.6 mg/dL Normal [facility] Comment on above: Performed By: #### B MP, ALT, LIPID #### [facility] [address] [address] [address] Howie Sanford MICROALBUMIN, RAND URon 12-0 mALB <1.3 Normal <=30.0 [facility] Comment on above: Performed By: #### M ALBR #### [facility] [address] [place] [address] Dr. Howie Sanford PROF CHEM 8 (BAS METB)on Anion gap [Moles/Vol] 11.5 mmol/L Normal [facility] Comment on above: Performed By: #### B MP, ALT, LIPID #### [facility] [address] [place] [address] Dr. Howie Sanford Calcium [Mass/Vol] 8.9 mg/dL Normal 8.5-10.1 [facility] Comment on above: Performed By: #### B MP, ALT, LIPID #### [facility] [address] [place] [address] Dr. Howie Sanford Chloride [Moles/Vol] 105 mmol/L Normal 98-107 [facility] Comment on above: Performed By: #### B MP, ALT, LIPID #### [facility] [address] [place] [address] Dr. Howie Sanford CO2 [Moles/Vol] 30.7 mmol/L Normal 21.0-32.0 [facility] Comment on above: Performed By: #### B MP, ALT, LIPID #### [facility] [address] [place] [address] Dr. Howie Sanford Creatinine [Mass/Vol] 0.96 mg/dL Normal 0.70-1.30 [facility] Comment on above: Performed By: #### B MP, ALT, LIPID #### [facility] [address] [place] [address] Dr. Howie Sanford EGFR-AF SYRIAN >60 Normal >=60 [facility] Comment on above: Performed By: #### B MP, ALT, LIPID #### [facility] [address] [place] [address] Dr. Howie Sanford EGFR-NON AF SYRIAN >60 Normal >=60 [facility] Comment on above: Performed By: #### B MP, ALT, LIPID #### [facility] [address] [place] [address] Dr. Howie Sanford Glucose [Mass/Vol] 115 mg/dL Critically high 74-106 [facility] Comment on above: Performed By: #### B MP, ALT, LIPID #### [facility] [address] [place] [address] Dr. Howie Sanford Potassium [Moles/Vol] 4.2 mmol/L Normal 3.5-5.1 [facility] Comment on above: Performed By: #### B MP, ALT, LIPID #### [facility] [address] [place] [address] Dr. Howie Sanford Sodium [Moles/Vol] 143 mmol/L Normal 136-145 [facility] Comment on above: Performed By: #### B MP, ALT, LIPID #### [facility] [address] [place] [address] Dr. Howie Sanford Urea nitrogen [Mass/Vol] 16.0 mg/dL Normal 7.0-18.0 [facility] Comment on above: Performed By: #### B MP, ALT, LIPID #### [facility] [address] [place] [address] Dr. Howie Sanford Urea nitrogen/Creatinine [Mass ratio] 16.7 mg/mg Normal [facility] Comment on above: Performed By: #### B MP, ALT, LIPID #### [facility] [address] [place] [address] Dr. Howie Sanford SGPTon 05-17-2022 ALT [Catalytic activity/Vol] 25 U/L Normal 16-63 [facility] Comment on above: Performed By: #### B MP, ALT, LIPID #### [facility] [address] [place], [place] [address] Dr. Howie Sanford XR MODIFIED BARIUM SWALLOWon 05-15-2022 XR MODIFIED BARIUM SWALLOW EXAMINATION: XR MODIFIED BARIUM SWALLOW HISTORY: Oropharyngeal dysphagia COMPARISON: No relevant comparison available. TECHNIQUE: A swallowing evaluation was performed with fluoroscopy in the usual manner. Standard level fluoroscopic mode of operation utilized. FINDINGS: ORAL PHASE: Normal deglutition. PHARYNGEAL PHASE: Relatively normal initiation of swallowing with very slight delay and slow closure of the epiglottis which allows for penetration of thin liquid ranging from mild to deep penetration. This improves slightly with chin tuck. This notably improves with nectar thickened liquid. No appreciable issues with pudding or solids. ASPIRATION: Episode of mild aspiration followed by cough and clearing. STRUCTURE: Normal. No visible obstruction, stricture, or dilatation. OTHER: Negative. IMPRESSION: 1. Multiple episodes of penetration and an episode of mild penetration when swallowing thin liquid. 2. Please see speech pathologist report for additional discussion of findings and recommendations. Electronically authenticated by: ELIS LAZO Date: 2022-05-15 15:55 Normal [facility] Vital Signs Date Time Vital Sign Value Performing Clinician Facility 08-06-2024 10:34-0500 Body height 175.26 cm [facility] 08-06-2024 10:34-0500 Body mass index (BMI) [Ratio] 30.9 kg/m2 [facility] 08-06-2024 10:34-0500 Body weight 94.91 kg [facility] 08-06-2024 10:34-0500 Diastolic blood pressure 65 mm[Hg] [facility] 08-06-2024 10:34-0500 Heart rate 90 /min [facility] 08-06-2024 10:34-0500 Respiratory rate 12 /min [facility] 08-06-2024 10:34-0500 SaO2% (BldA) [Mass fraction] 95 % [facility] 08-06-2024 10:34-0500 Systolic blood pressure 132 mm[Hg] [facility] 03-16-2024 11:35-0400 Body height 175.26 cm [facility] 03-16-2024 11:35-0400 Body mass index (BMI) [Ratio] 30.7 kg/m2 [facility] 03-16-2024 11:35-0400 Body weight 94.51 kg [facility] 03-16-2024 11:35-0400 Diastolic blood pressure 66 mm[Hg] [facility] 03-16-2024 11:35-0400 Heart rate 84 /min [facility] 03-16-2024 11:35-0400 Respiratory rate 12 /min [facility] 03-16-2024 11:35-0400 Systolic blood pressure 136 mm[Hg] [facility] 01-27-2024 14:39-0400 Diastolic blood pressure 74 mm[Hg] Jay Peralta MD [facility] 01-27-2024 14:39-0400 Systolic blood pressure 130 mm[Hg] Jay Peralta MD [facility] 10-03-2023 09:50-0400 Body height 175.26 cm [facility] 10-03-2023 09:50-0400 Body mass index (BMI) [Ratio] 30.4 kg/m2 [facility] 10-03-2023 09:50-0400 Body weight 93.66 kg [facility] 10-03-2023 09:50-0400 Diastolic blood pressure 70 mm[Hg] [facility] 10-03-2023 09:50-0400 Heart rate 80 /min [facility] 10-03-2023 09:50-0400 Systolic blood pressure 149 mm[Hg] [facility] 02-27-2023 10:15-0400 Body height 175.26 cm Abdiaziz Ball Other [facility] Other 02-27-2023 10:15-0400 Body mass index (BMI) [Ratio] 30.54 kg/m2 Abdiaziz Ball Other [facility] Other 02-27-2023 10:15-0400 Body weight 93.8 kg Abdiaziz Ball Other [facility] Other 02-27-2023 10:15-0400 Diastolic blood pressure 59 mm[Hg] Abdiaziz Ball Other [facility] Other 02-27-2023 10:15-0400 Respiratory rate 12 /min Abdiaziz Ball Other [facility] Other 02-27-2023 10:15-0400 Systolic blood pressure 127 mm[Hg] Abdiaziz Ball Other [facility] Other 12-02-2022 13:45-0400 Body height 175.26 cm Abdiaziz Ball Other [facility] Other 12-02-2022 13:45-0400 Body mass index (BMI) [Ratio] 30.62 kg/m2 Abdiaziz Ball Other [facility] Other 12-02-2022 13:45-0400 Body weight 94.08 kg Abdiaziz Ball Other [facility] Other 12-02-2022 13:45-0400 Diastolic blood pressure 61 mm[Hg] Abdiaziz Ball Other [facility] Other 12-02-2022 13:45-0400 Respiratory rate 12 /min Abdiaziz Ball Other [facility] Other 12-02-2022 13:45-0400 Systolic blood pressure 133 mm[Hg] Abdiaziz Ball Other [facility] Other Encounters Encounter Date Encounter Type Care Provider Facility Start: 08-23-2024 ambulatory [facility] Start: 08-18-2024 ambulatory [facility] Start: 08-06-2024 End: 08-06-2024 ambulatory [facility] Work Phone: Start: 08-06-2024 End: 08-06-2024 Patient encounter procedure [facility] Physician [facility] Work Phone: Start: 08-04-[address] [facility] Start: 08-03-2024 Office outpatient visit 15 minutes Jay Al Shweiki [facility] Start: 08-03-2024 ambulatory Jay Al Shweiki [facility] Start: 08-02-2024 ambulatory Jay Al Shweiki [facility] Start: 06-29-2024 ambulatory Jay Al Shweiki [facility] Start: 05-18-2024 End: 05-18-2024 Jay Al Shweiki Work Phone: [facility] Start: 05-18-2024 ambulatory Jay Al Shweiki [facility] Start: 04-06-2024 End: 04-06-2024 Jay Al Shweiki Work Phone: [facility] [place] Start: 04-06-2024 ambulatory Jay Al Shweiki [facility] Start: 03-16-2024 End: 03-16-2024 ambulatory [facility] Work Phone: Start: 03-16-2024 End: 03-16-2024 Patient encounter procedure [facility] Physician [facility] Work Phone: Start: 03-13-2024 Patient encounter procedure [facility] Start: 03-12-2024 Non-patient / Non-visit [facility] Physician [facility] Work Phone: Start: 01-27-2024 End: 01-27-2024 Jay Al Shweiki Work Phone: [facility] [place] Start: 01-27-2024 ambulatory Jay Al Shweiki [facility] Start: 11-06-2023 End: 11-06-2023 October El Rashedy Work Phone: [facility] Start: 10-10-2023 End: 10-10-2023 ambulatory ABDIAZIZ [facility] Start: 10-09-2023 End: 10-09-2023 [facility] Start: 10-03-2023 End: 10-03-2023 ambulatory [facility] Work Phone: Start: 10-03-2023 End: 10-03-2023 Patient encounter procedure [facility] Work Phone: Start: 09-11-2023 End: 09-11-2023October Alejandro Shipmany Work Phone: [facility] Start: 08-19-2023 Non-patient / Non-visit [facility] Work Phone: Start: 07-17-2023 End: 07-17-2023October Alejandro Mcleod Work Phone: [facility] Start: 07-09-2023 End: 07-09-2023 ambulatory Abdiaziz Arrington Other [facility] Other Start: 07-09-2023 Telephone encounter Abdiaziz Murphy [employer] Start: 06-04-2023 End: 06-04-2023October Alejandro Mcleod Work Phone: [facility]ordano Start: 04-30-2023 End: 04-30-2023 Ivonne Cardoso Alkaliby Work Phone: [facility] Start: 04-02-2023 End: 04-02-2023 Ivonne Cardoso Alkaliby Work Phone: [facility] Start: 03-05-2023 End: 03-05-2023 Ivonne Cardoso Alkaliby Work Phone: [facility] Start: 02-27-2023 End: 02-27-2023 ambulatory Abdiaziz Arrington Other [facility] Other Start: 02-27-2023 Office outpatient visit 25 minutes Abdiaziz Arrington [facility] Start: 02-05-2023 End: 02-05-2023 Office outpatient visit 25 minutes Ivonne Cardoso Alkaliby Work Phone: [facility] Start: 01-02-2023 End: 01-02-2023 Ameya Allred Work Phone: [facility] Start: 12-02-2022 End: 12-02-2022 ambulatory Abdiaziz Arrington Other [facility] Other Start: 12-02-2022 Office outpatient visit 25 minutes Abdiaziz Arrington [facility] Start: 11-28-2022 End: 11-28-2022 Ameya Allred Work Phone: [facility] Start: 10-30-2022 End: 10-30-2022 Office outpatient visit 25 minutes Ivonne Cardoso Alkaliby Work Phone: [facility] Start: 09-18-2022 End: 09-18-2022 Ivonne M Alkaliby Work Phone: [facility] Start: 09-18-2022 End: 09-19-2022 ambulatory Mikhail HOBSON Facility:[facility] Start: 09-18-2022 End: 09-18-2022 Patient encounter procedure Mikhail HOBSON [facility] Start: 08-21-2022 End: 08-21-[address] ABDIAZIZ ARRINGTON Facility:[facility] Start: 08-15-2022 End: 08-16-[address] ABDIAZIZ ARRINGTON Facility:[facility] Start: 08-14-2022 End: 08-14-2022 Ivonne Cardoso Alkaliby Work Phone: [facility] Start: 07-17-2022 End: 07-17-2022 Ivonne Cardoso Alkaliby Work Phone: [facility] Start: 06-19-2022 End: 06-19-2022 Ahmed M Alkaliby Work Phone: [facility] Start: 06-09-2022 End: 06-10-[address] ABDIAZIZ ARRINGTON Facility:[facility] Start: 05-22-2022 End: 05-22-2022 Ahmed M Alkaliby Work Phone: [facility] Start: 05-20-2022 End: 06-08-[address] ABDIAZIZ ARRINGTON Facility:[facility] Start: 05-17-2022 End: 05-18-[address] ABDIAZIZ ARRINGTON Facility:[facility] Start: 05-15-2022 End: 05-16-[address] ABDIAZIZ ARRINGTON Facility:[facility] Start: 04-24-2022 End: 04-24-2022 Ahmed M Alkaliby Work Phone: [facility] Start: 03-28-2022 End: 03-28-2022 Ahmed M Alkaliby Work Phone: [facility] Start: 02-20-2022 End: 02-20-2022 Ahmed M Alkaliby Work Phone: [facility] Start: 2022 End: 2022 Ahmed M Alkaliby Work Phone: [facility] Start: 12-27-2021 End: 12-28-[address] ABDIAZIZ ARRINGTON Facility:[facility] Start: 11-28-2021 End: 11-28-2021 Office outpatient visit 25 minutes Ahmed M Alkaliby Work Phone: [facility] Start: 10-31-2021 End: 10-31-2021 Ahmed M Alkaliby Work Phone: [facility] Start: 09-19-2021 End: 09-19-2021 Office outpatient visit 15 minutes Ahmed M Alkaliby Work Phone: [facility] Start: 08-22-2021 End: 08-22-2021 Ahmed M Alkaliby Work Phone: [facility] Start: 07-25-2021 End: 07-25-2021 Ivonne Cardoso Alkaliby Work Phone: [facility] Start: 06-20-2021 End: 06-20-2021 Ivonne Cardoso Alkaliby Work Phone: [facility] Start: 05-09-2021 End: 05-09-2021 Mehrdad Camron Lorenza Work Phone: [facility] Start: 04-04-2021 End: 04-04-2021 Office outpatient visit 25 minutes Mehrdad Camron Lorenza Work Phone: [facility] Start: 02-14-2021 End: 02-14-2021 Mehrdad K Lorenza Work Phone: [facility] Start: 12-13-2020 End: 12-13-2020 Mehrdad K Lorenza Work Phone: [facility] Start: 11-01-2020 End: 11-01-2020 Office outpatient visit 15 minutes Mehrdad K Lorenza Work Phone: [facility] Start: 10-03-2020 End: 10-03-2020 Office outpatient visit 25 minutes Mehrdad K Lorenza Work Phone: [facility] Start: 08-02-2020 End: 08-02-2020 Mehrdad K Lorenza Work Phone: [facility] Start: 07-05-2020 End: 07-05-2020 Mehrdad K Lorenza Work Phone: [facility] Start: 05-16-2020 End: 05-16-2020 Mehrdad K Lorenza Work Phone: [facility] Start: 03-28-2020 End: 03-28-2020 Mehrdad K Lorenza Work Phone: [facility] Start: 01-18-2020 End: 01-18-2020 Mehrdad K Lorenza Work Phone: [facility] Start: 12-07-2019 End: 12-07-2019 Mehrdad Britt Work Phone: [facility] Start: 10-27-2019 End: 10-27-2019 Mehrdad Britt Work Phone: [facility] Start: 08-16-2019 End: 08-16-2019 Office outpatient new 45 minutes Priti K Mikey Work Phone: [facility] Start: 09-14-2012 End: 09-14-2012 Mehrdad Britt Work Phone: [facility] Start: 08-26-2012 End: 08-26-2012 Office outpatient new 45 minutes Mehrdad Britt Work Phone: [facility] Procedures Date Procedure Procedure Detail Performing Clinician Start: 08-03-2024 OCT No Charge Jay Peralta Start: 06-29-2024 Intravitreal njx pharmacologic agt spx Jay Peralta Start: 06-29-2024 Vabysmo Prefilled Syringe Jay Peralta Start: 05-18-2024 End: 05-18-2024 Computerized ophthalmic imaging retina Jay Peralta MD Start: 05-18-2024 End: 05-18-2024 Intravitreal njx pharmacologic agt spx Jay Peralta MD Start: 05-18-2024 End: 05-18-2024 Vabysmo Prefilled Syringe Jay Aguirre MD Start: 05-18-2024 Vabysmo Prefilled Syringe Jay Peralta Start: 04-06-2024 End: 04-06-2024 Computerized ophthalmic imaging retina Jay Peralta MD Start: 04-06-2024 End: 04-06-2024 Intravitreal njx pharmacologic agt spx Jay Peralta MD Start: 04-06-2024 End: 04-06-2024 Vabysmo Prefilled Syringe Jay Aguirre MD Start: 04-06-2024 Vabysmo Prefilled Syringe Jay Peralta Start: 01-27-2024 End: 01-27-2024 Computerized ophthalmic imaging retina Jay Peralta MD Start: 01-27-2024 End: 01-27-2024 Eylea CAROLINE Peralta MD Start: 01-27-2024 End: 01-27-2024 Intravitreal njx pharmacologic agt spx Jay Peralta MD Start: 11-06-2023 End: 11-06-2023 Computerized ophthalmic imaging retina Jay Peralta MD Start: 11-06-2023 End: 11-06-2023 Eylea CAROLINE Peralta MD Start: 11-06-2023 End: 11-06-2023 Intravitreal njx pharmacologic agt spx Jay Peralta MD Start: 09-11-2023 End: 09-11-2023 Computerized ophthalmic imaging retina Jay Peralta MD Start: 09-11-2023 End: 09-11-2023 Eypeyton Peralta MD Start: 09-11-2023 End: 09-11-2023 Fundus Photos No Charge Bilateral Jay Peralta MD Start: 09-11-2023 End: 09-11-2023 Intravitreal njx pharmacologic agt spx Jay Peralta MD Start: 07-17-2023 End: 07-17-2023 Computerized ophthalmic imaging retina Jay Peralta MD Start: 07-17-2023 End: 07-17-2023 Blair VELAZQUEZ 8MG Jay Peralta MD Start: 07-17-2023 End: 07-17-2023 Intravitreal njx pharmacologic agt spx Jay Peralta MD Start: 06-04-2023 End: 06-04-2023 Computerized ophthalmic imaging retina Jay Peralta MD Start: 06-04-2023 End: 06-04-2023 Eylea 1mg Pre-filled Syringe Jay Sanderson MD Start: 06-04-2023 End: 06-04-2023 Intravitreal njx pharmacologic agt spx Jay Peralta MD Start: 04-30-2023 End: 04-30-2023 Computerized ophthalmic imaging retina Jay Peralta MD Start: 04-30-2023 End: 04-30-2023 Eylea 1mg Pre-filled Syringe Jay Sanderson MD Start: 04-30-2023 End: 04-30-2023 Intravitreal njx pharmacologic agt spx Jay Peralta MD Start: 04-02-2023 End: 04-02-2023 Computerized ophthalmic imaging retina Jay Peralta MD Start: 04-02-2023 End: 04-02-2023 Eylea 1mg Pre-filled Syringe Jay Sanderson MD Start: 04-02-2023 End: 04-02-2023 Intravitreal njx pharmacologic agt spx Jay Peralta MD Start: 03-05-2023 End: 03-05-2023 Computerized ophthalmic imaging retina Jay Peralta MD Start: 03-05-2023 End: 03-05-2023 Eylea 1mg Pre-filled Syringe Jay Sanderson MD Start: 03-05-2023 End: 03-05-2023 Intravitreal njx pharmacologic agt spx Jay Peralta MD Start: 02-05-2023 End: 02-05-2023 Computerized ophthalmic imaging retina Jay Peralta MD Start: 02-05-2023 End: 02-05-2023 Eylea 1mg Pre-filled Syringe Jay Sanderson MD Start: 02-05-2023 End: 02-05-2023 Intravitreal njx pharmacologic agt spx Jay Peralta MD Start: 01-02-2023 End: 01-02-2023 Computerized ophthalmic imaging retina Jay Peralta MD Start: 01-02-2023 End: 01-02-2023 Eylea 1mg Pre-filled Syringe Jay Sanderson MD Start: 01-02-2023 End: 01-02-2023 Intravitreal njx pharmacologic agt spx Jay Peralta MD Start: 11-28-2022 End: 11-28-2022 Computerized ophthalmic imaging retina Jay Peralta MD Start: 11-28-2022 End: 11-28-2022 Eylea 1mg Pre-filled Syringe Jay Sanderson MD Start: 11-28-2022 End: 11-28-2022 Intravitreal njx pharmacologic agt spx Jay Peralta MD Start: 10-30-2022 End: 10-30-2022 Computerized ophthalmic imaging retina Jay Peralta MD Start: 10-30-2022 End: 10-30-2022 Eylea 1mg Pre-filled Syringe Jay Sanderson MD Start: 10-30-2022 End: 10-30-2022 Intravitreal njx pharmacologic agt spx Jay Peralta MD Start: 09-18-2022 End: 09-18-2022 Computerized ophthalmic imaging retina Jay Peralta MD Start: 09-18-2022 End: 09-18-2022 Eylea 1mg Pre-filled Syringe Jay Sanderson MD Start: 09-18-2022 End: 09-18-2022 Intravitreal njx pharmacologic agt spx Jay Peralta MD Start: 08-14-2022 End: 08-14-2022 Computerized ophthalmic imaging retina Jay Peralta MD Start: 08-14-2022 End: 08-14-2022 Eylea 1mg Pre-filled Syringe Jay Sanderson MD Start: 08-14-2022 End: 08-14-2022 Intravitreal njx pharmacologic agt spx Jay Peralta MD Start: 07-17-2022 End: 07-17-2022 Computerized ophthalmic imaging retina Jay Peralta MD Start: 07-17-2022 End: 07-17-2022 Eylea 1mg Pre-filled Syringe Jay Sanderson MD Start: 07-17-2022 End: 07-17-2022 Intravitreal njx pharmacologic agt spx Jay Peralta MD Start: 06-19-2022 End: 06-19-2022 Computerized ophthalmic imaging retina Jay Peralta MD Start: 06-19-2022 End: 06-19-2022 Eylea 1mg Pre-filled Syringe Jay Sanderson MD Start: 06-19-2022 End: 06-19-2022 Intravitreal njx pharmacologic agt spx Jay Peralta MD Start: 05-22-2022 End: 05-22-2022 Computerized ophthalmic imaging retina Jay Peralta MD Start: 05-22-2022 End: 05-22-2022 Eylea 1mg Pre-filled Syringe Jay Sanderson MD Start: 05-22-2022 End: 05-22-2022 Intravitreal njx pharmacologic agt spx Jay Peralta MD Start: 05-17-[address] WOODARD [place] Comment on above: Performed By: #### P [facility] ####[address] [id number] Start: 04-24-2022 End: 04-24-2022 Bevacizumab injection Jay Peralta MD Start: 04-24-2022 End: 04-24-2022 Computerized ophthalmic imaging retina Jay Peralta MD Start: 04-24-2022 End: 04-24-2022 Intravitreal njx pharmacologic agt spx Jay Peralta MD Start: 03-28-2022 End: 03-28-2022 Bevacizumab injection Jay Peralta MD Start: 03-28-2022 End: 03-28-2022 Computerized ophthalmic imaging retina Jay Peralta MD Start: 03-28-2022 End: 03-28-2022 Intravitreal njx pharmacologic agt spx Jay Peralta MD Start: 02-20-2022 End: 02-20-2022 Bevacizumab injection Jay Peralta MD Start: 02-20-2022 End: 02-20-2022 Computerized ophthalmic imaging retina Jay Peralta MD Start: 02-20-2022 End: 02-20-2022 Intravitreal njx pharmacologic agt spx Jay Peralta MD Start: 2022 End: 2022 Computerized ophthalmic imaging retina Jay Peralta MD Start: 2022 End: 2022 Eylea 1mg Pre-filled Syringe Jay Sanderson MD Start: 2022 End: 2022 Intravitreal njx pharmacologic agt spx Jay Peralta MD Start: 11-28-2021 End: 11-28-2021 Computerized ophthalmic imaging retina Jay Peralta MD Start: 11-28-2021 End: 11-28-2021 Eylea 1mg Pre-filled Syringe Jay Sanderson MD Start: 11-28-2021 End: 11-28-2021 Intravitreal njx pharmacologic agt spx Jay Peralta MD Start: 10-31-2021 End: 10-31-2021 Computerized ophthalmic imaging retina Jay Peralta MD Start: 10-31-2021 End: 10-31-2021 Eylea 1mg Pre-filled Syringe Jay Sanderson MD Start: 10-31-2021 End: 10-31-2021 Intravitreal njx pharmacologic agt spx Jay Peralta MD Start: 09-19-2021 End: 09-19-2021 Eylea 1mg Pre-filled Syringe Jay Sanderson MD Start: 09-19-2021 End: 09-19-2021 Fluorescein angrph w/multiframe i&r uni/bi Jay Peralta MD Start: 09-19-2021 End: 09-19-2021 Intravitreal njx pharmacologic agt spx Jay Peralta MD Start: 08-22-2021 End: 08-22-2021 Computerized ophthalmic imaging retina Jay Peralta MD Start: 08-22-2021 End: 08-22-2021 Eylea 1mg Pre-filled Syringe Jay Sanderson MD Start: 08-22-2021 End: 08-22-2021 Intravitreal njx pharmacologic agt spx Jay Peralta MD Start: 07-25-2021 End: 07-25-2021 Computerized ophthalmic imaging retina Jay Peralta MD Start: 07-25-2021 End: 07-25-2021 Eylea 1mg Pre-filled Syringe Jay Sanderson MD Start: 07-25-2021 End: 07-25-2021 Intravitreal njx pharmacologic agt spx Jay Peralta MD Start: 06-20-2021 End: 06-20-2021 Computerized ophthalmic imaging retina Jay Peralta MD Start: 06-20-2021 End: 06-20-2021 Eylea 1mg Pre-filled Syringe Jay Sanderson MD Start: 06-20-2021 End: 06-20-2021 Intravitreal njx pharmacologic agt spx Jay Peralta MD Start: 05-09-2021 End: 05-09-2021 Computerized ophthalmic imaging retina Jay Peralta MD Start: 05-09-2021 End: 05-09-2021 Eylea 1mg Pre-filled Syringe Jay Sanderson MD Start: 05-09-2021 End: 05-09-2021 Intravitreal njx pharmacologic agt spx Jay Peralta MD Start: 04-04-2021 End: 04-04-2021 Computerized ophthalmic imaging retina Jay Peralta MD Start: 04-04-2021 End: 04-04-2021 Eylea 1mg Pre-filled Syringe Jay Sanderson MD Start: 04-04-2021 End: 04-04-2021 Intravitreal njx pharmacologic agt spx Jay Peralta MD Start: 02-14-2021 End: 02-14-2021 Bevacizumab injection Jay Peralta MD Start: 02-14-2021 End: 02-14-2021 Computerized ophthalmic imaging retina Jay Peralta MD Start: 02-14-2021 End: 02-14-2021 Intravitreal njx pharmacologic agt spx Jay Peralta MD Start: 12-13-2020 End: 12-13-2020 Bevacizumab injection Jay Peralta MD Start: 12-13-2020 End: 12-13-2020 Computerized ophthalmic imaging retina Jay Peralta MD Start: 12-13-2020 End: 12-13-2020 Intravitreal njx pharmacologic agt spx Jay Peralta MD Start: 11-01-2020 End: 11-01-2020 Bevacizumab injection Jay Peralta MD Start: 11-01-2020 End: 11-01-2020 Computerized ophthalmic imaging retina Jay Peralta MD Start: 11-01-2020 End: 11-01-2020 Intravitreal njx pharmacologic agt spx Jay Peralta MD Start: 10-03-2020 End: 10-03-2020 Bevacizumab injection Jay Peralta MD Start: 10-03-2020 End: 10-03-2020 Computerized ophthalmic imaging retina Jay Peralta MD Start: 10-03-2020 End: 10-03-2020 Intravitreal njx pharmacologic agt spx Jay Peralta MD Start: 08-02-2020 End: 08-02-2020 Bevacizumab injection Jay Peralta MD Start: 08-02-2020 End: 08-02-2020 Computerized ophthalmic imaging retina Jay Peralta MD Start: 08-02-2020 End: 08-02-2020 Intravitreal njx pharmacologic agt spx Jay Peralta MD Start: 07-05-2020 End: 07-05-2020 Bevacizumab injection Jay Peralta MD Start: 07-05-2020 End: 07-05-2020 Computerized ophthalmic imaging retina Jay Peralta MD Start: 07-05-2020 End: 07-05-2020 Intravitreal njx pharmacologic agt spx Jay Peralta MD Start: 05-16-2020 End: 05-16-2020 Bevacizumab injection Jay Peralta MD Start: 05-16-2020 End: 05-16-2020 Computerized ophthalmic imaging retina Jay Peralta MD Start: 05-16-2020 End: 05-16-2020 Intravitreal njx pharmacologic agt spx Jay Peralta MD Start: 03-28-2020 End: 03-28-2020 Bevacizumab injection Jay Peralta MD Start: 03-28-2020 End: 03-28-2020 Fluorescein angrph w/multiframe i&r uni/bi Jay Peralta MD Start: 03-28-2020 End: 03-28-2020 Intravitreal njx pharmacologic agt spx Jay Peralta MD Start: 01-18-2020 End: 01-18-2020 Bevacizumab injection Jay Peralta MD Start: 01-18-2020 End: 01-18-2020 Computerized ophthalmic imaging retina Jay Peralta MD Start: 01-18-2020 End: 01-18-2020 Intravitreal njx pharmacologic agt spx Jay Peralta MD Start: 12-07-2019 End: 12-07-2019 Bevacizumab injection Jay Peralta MD Start: 12-07-2019 End: 12-07-2019 Computerized ophthalmic imaging retina Jay Peralta MD Start: 12-07-2019 End: 12-07-2019 Intravitreal njx pharmacologic agt spx Jay Peralta MD Start: 10-27-2019 End: 10-27-2019 Bevacizumab injection Jay Peralta MD Start: 10-27-2019 End: 10-27-2019 Computerized ophthalmic imaging retina Jay Peralta MD Start: 10-27-2019 End: 10-27-2019 Intravitreal njx pharmacologic agt spx Jay Peralta MD Start: 08-16-2019 End: 08-16-2019 Bevacizumab injection Jay Peralta MD Start: 08-16-2019 End: 08-16-2019 Fluorescein angrph w/multiframe i&r uni/bi Jay Peralta MD Start: 08-16-2019 End: 08-16-2019 Intravitreal njx pharmacologic agt spx Jay Peralta MD Start: 09-14-2012 End: 09-14-2012 [facility] Jay Peralta MD Start: 09-14-2012 End: 09-14-2012 AR[facility] Dilated Exam Jay Peralta MD Start: 09-14-2012 End: 09-14-2012 [facility] medical xm&eval comprhnsv estab pt 1/> Jay Peralta MD Start: 08-26-2012 End: 08-26-2012 [facility] Counseling Jay Peralta MD Start: 08-26-2012 End: 08-26-2012 ARMD Dilated Exam Jay Peralta MD Start: 08-26-2012 End: 08-26-2012 Fluorescein angrph w/multiframe i&r uni/bi Jay Peralta MD Plan of Treatment Date Care Activity Detail Author Start: 06-29-2024 Jerad Carranza 6wk IO Vab OS 3 Of 3 [facility] Work Phone: Start: 04-06-2024 Jerad Carranza/ 10 Wk IO Eyl HD OS OCT [facility] Work Phone: Start: 04-06-2024 Referral to tobacco use cessation counseling program Tobacco cessation counseling [facility] Start: 02-10-2024 Jerad Carranza / 12 Wk FU Eyl HD OS OCT *[place] [facility] Work Phone: Start: 03-05-2023 Smoking effects education Tobacco cessation counseling [facility] Start: 02-05-2023 Smoking cessation education Tobacco cessation counseling [facility] Start: 06-19-2022 Smoking cessation assistance Tobacco cessation counseling [facility] Start: 07-25-2021 [facility] Start: 06-20-2021 Smoking cessation education Tobacco cessation counseling [facility] Start: 07-05-2020 Smoking cessation education Tobacco cessation counseling [facility] Start: 01-18-2020 Smoking cessation education Tobacco cessation counseling [facility] Start: 01-18-2020 Patient Education Health Information for You: [facility]~ [facility] Work Phone: Start: 12-07-2019 Patient Education Health Information for You: [facility] Work Phone: Start: 10-27-2019 Smoking cessation education Tobacco cessation counseling [facility] Start: 08-16-2019 Smoking cessation education Tobacco cessation counseling [facility] Comprehensive metabo lic 2000 panel - Serum or Plasma [facility] Immunizations Immunization Date Immunization Notes Care Provider Fa cility 04-29-2022 influenza virus vaccine, split virus (incl. purified surface antigen) Abdiaziz Arrington Other [facility] Other 04-29-2022 influenza virus vaccine, unspecified formulation [facility] 05-07-2021 influenza virus vaccine, split virus (incl. purified surface antigen) Abdiaziz Arrington Other [facility] Other 05-07-2021 influenza virus vaccine, unspecified formulation [facility] 03-15-2021 diphtheria, tetanus toxoids and acellular pertussis vaccine, unspecified formulation Abdiaziz Arrington Other [facility] 03-30-2020 influenza virus vaccine, split virus (incl. purified surface antigen) Abdiaziz Arrington Other [facility] Other 03-30-2020 influenza virus vaccine, unspecified formulation [facility] 03-05-2019 influenza virus vaccine, split virus (incl. purified surface antigen) Abdiaziz Arrington Other [facility] Other 03-05-2019 influenza virus vaccine, unspecified formulation [facility] 03-17-2018 influenza virus vaccine, split virus (incl. purified surface antigen) Abdiaziz Arrington Other [facility] Other 03-17-2018 influenza virus vaccine, unspecified formulation [facility] 03-20-2017 influenza virus vaccine, split virus (incl. purified surface antigen) Abdiaziz Arrington Other [facility] Other 03-20-2017 influenza virus vaccine, unspecified formulation [facility] 05-29-2016 pneumococcal conjuga te vaccine, 13 valent Abdiaziz Arrington Other [facility] 03-19-2016 influenza virus vaccine, split virus (incl. purified surface antigen) Abdiaziz Arrington Other [facility] Other 03-19-2016 influenza virus vaccine, unspecified formulation [facility] 03-09-2013 tetanus and diphther ia toxoids, adsorbed, preservative free, for adult use (5 Lf of tetanus toxoid and 2 Lf of diphtheria toxoid) Abdiaziz Arrington Other [facility] 03-18-2012 pneumococcal polysaccharide vaccine, 23 valent Abdiaziz Arrington Other [facility] Payers Date Payer Category Payer Medicare [id number] 1958 Medicare [id number] 1959 Unknown [id number] 1959 Unknown [id number] 1959 Unknown [id number] 1941 Unknown [id number] 2.16.84 [id number] 1941 Unknown [id number] 2.16.84 [id number] 1941 Unknown [id number] 2.16.84 0.1.806444.3.579.2.593 1941 Unknown [id number] 2.16.84 0.1.355418.3.579.2.593 1941 Unknown [id number] 2.16.84 0.1.632234.3.579.2.593 1941 Unknown [id number] 2.16.84 0.1.907614.3.579.2.593 1941 Unknown [id number] 2.16.84 0.1.889496.3.579.2.593 1941 Unknown [id number] 2.16.8 40.1.782814.3.579.2.727 1941 Unknown [id number] 2.16.84 0.1.845510.3.579.2.1347 1941 Unknown [id number] 2.16.84 0.1.375786.3.579.2.1347 1941 Unknown [id number] 2.16.84 0.1.811987.3.579.2.1347 1941 Unknown [id number] 2.16.84 0.1.683787.3.579.2.1347 1941 Unknown [id number] 2.16.84 0.1.823883.3.579.2.1347 1941 Unknown [id number] 2.16.84 0.1.938307.3.579.2.1347 1941 Unknown [id number] 2.16.840 .1.672138.3.579.2.1347 1941 Unknown [id number] 2.16.8 40.1.885040.3.579.2.174 1941 Unknown [id number] 2.16.8 40.1.395117.3.579.2.174 1941 Unknown [id number] 2.16.8 40.1.901134.3.579.2.174 1941 Unknown [id number] 2.16.8 [id number] Social History Date Type Detail Facility Sex Assigned At [facility] Other Start: 1940 Sex Assigned At Male [facility] Start: 01-27-2024 End: 05-18-2024 Tobacco smoking status NEIS Unknown if ever smoked [facility] Start: 01-27-2024 Alcohol intake (observable entity) Alcohol Use Details [facility] Start: 01-27-2024 Health-related behavior (observable entity) Caffeine Use Details [facility] Start: 05-18-2024 Alcohol intake Alcohol Use Details [facility] Start: 08-06-2024 Sex Male (finding) [facility] NEGATED: Highlighted rowStart: 01-27-2024 History of tobacco use Ex-cigarette smoker [facility] Medical Equipment Procedure Code Equipment Code Equipment Origin al Text Equipment Identifier Dates Blood Sugar Diagnostic (Onetouch Ultra Test) strip Start: 08-19-2023 Blood Sugar Diagnostic (Blood Glucose Test) strip Start: 08-19-2023 End: 08-19-2023 Blood Sugar Diagnostic (Blood Glucose Test) strip Start: 08-19-2023 End: 08-19-2023 Blood Sugar Diagnostic (Onetouch Ultra Test) strip Start: 08-19-2023 End: 08-19-2023 Blood Sugar Diagnostic (Onetouch Ultra Test) strip Start: 08-19-2023 Blood Sugar Diagnostic (Blood Glucose Test) strip Start: 08-19-2023 End: 08-19-2023 Blood Sugar Diagnostic (Blood Glucose Test) strip Start: 08-19-2023 End: 08-19-2023 Blood Sugar Diagnostic (Onetouch Ultra Test) strip Start: 08-19-2023 End: 08-19-2023 Blood Sugar Diagnostic (Onetouch Ultra Test) strip Start: 08-19-2023 Blood Sugar Diagnostic (Blood Glucose Test) strip Start: 08-19-2023 End: 08-19-2023 Blood Sugar Diagnostic (Blood Glucose Test) strip Start: 08-19-2023 End: 08-19-2023 Blood Sugar Diagnostic (Onetouch Ultra Test) strip Start: 08-19-2023 End: 08-19-2023 Clinical Notes 08-21-2022 to 05-18-2024 Note Date & Type Note Facility 05-18-2024 Evaluation note Type assessment Exdtve age-rel mclr degn, left eye, 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 This eye seems blurrier that before up close without any glasses. But when he reads his glasses do help with the near vision tasks. AMD The 84 year old patient presents for evaluation of AMD in the left eye. Patient states vision is pretty good since his last visit. Patient states after the last 1-1.5 months he is no longer seeing floaters. Patient denies flashes of light and ocular pain. Patient does not use any eyedrops at this time. AMD The 84 year old patient presents for evaluation of AMD in the right and left eyes. Patient reports hazy vision in both eyes that started 1 week ago. He denies flashes, floaters, and eye pain. Exudative ARMD The 83 year old male presents for 8 week evaluation of Exudative ARMD in the right and left eyes. Patient states no changes in his vision. Patient denies any floaters or flashes of light. Exudative ARMD The 83 year old male presents for 8 weeks evaluation of Exudative ARMD in the left eye. Patient states that after two weeks after the injection he began to see bad changes in his vision. He states that faces and colors looked very distorted. He states that he believes the 8 weeks to long to go for his injections. He wishes to go back to 4 week injections. Exudative ARMD The 83 year old male presents for 6 week evaluation of Exudative ARMD in the left eye. Patient states over the last 2 weeks the vision seems to be more blurry. Patient states that a few days ago he saw floaters that seemed to be different colors. AMD The 83 year old patient presents for evaluation and treatment of AMD in the left eye. Patient states his vision is stable since his last appointment. Exudative ARMD The 83 year old male presents for 4 week evaluation of Exudative ARMD in the left eye. Patient states the vision is stable. Patient denies any floaters or flashes of light right now. Patient states last month the flashes were worse then now. AMD The 83 year old patient presents for evaluation of AMD in the left eye. Patient reports stable vision. No complaints from the patient at this time. AMD The 83 year old male presents for management of AMD in the left eye. Pt reports vision is not as good over the last month, he is light headed and is being evaluated for vertigo. He reports the vision never got better after last injection unlike previous injections 3-4 days later the vision would be better. He has a few days where he had colorful images in the vision that were episodic and the spindles of the railing were distorted, that was about 2 weeks ago. He has had flashes but not sure which eye. He denies floaters and ocular pain. He stopped using eye wash for the last few weeks as well. He also reports stopping the eye vitamins 2 weeks ago. Follow Up of AMD The 83 year old male presents for evaluation and 5 week Follow Up of AMD in the right and left eyes with treatment in the left eye. Pt reports noticing a change in vision in the fifth week, things not as sharp and hazy vision OS. He denied flashes of light, floaters and ocular pain. macular degeneration The 82 year old male presents for evaluation of macular degeneration in the left eye. Patient states his vision in the left eye remained good during the 5 weeks since last visit. Patient denies pain in either eye, just slight itching with no discharge. AMD The 82 year old male presents for treatment of AMD in the left eye. AMD The 82 year old male presents for evaluation of AMD in the right eye and left eye. Patient reports that vision in the left eye has worsened over the last week, right eye is poor vision but stable. Patient denies ocular pain, flashes of light, or floaters in both eyes. AMD The 82 year old male presents for evaluation of AMD in the left eye with treatment of Eylea. AMD The 82 year old male presents for evaluation of AMD in the right and left eyes. Patient states his vision has worsened, he reports things are blurry and sometimes look distorted. Patient denies flashes, floaters, and eye pain. macular degeneration followup Th e 82 year old male presents for evaluation of macular degeneration followup in the right and left eyes. It started about 3 month(s) ago. It occurs constantly. The onset was gradual. It affects decrease in both near and distance vision. The symptom is all of the time. The condition is mild. AMD The 82 year old male presents for evaluation of AMD in the left eye with treatment of Eylea. AMD The 82 year old male presents for evaluation of AMD in the left eye with treatment of Eylea. Exudative ARMD The 82 year old male presents for 4 weeks evaluation. Patient states the last 3-4 days he can tell there is a decrease in his vision. Patient states that he see's a yellow coloring when looking at certain images, and there are also dots in the yellow images. injection of Avastin The 82 year old male reports for injection of Avastin in the right and left eyes due to AMD. Has noticed a slight decrease in vision in the past week. No flashes of light of floaters. possible Avastin int ravitreal injection The 82 year old male presents for evaluation of possible Avastin intravitreal injection in the right eye and left eye for treatment of AMD. Exudative ARMD The 82 year old male presents for Eylea injection OU. Patient states that after he gets injections he feels dizzy for at least 2 weeks after. He also states that he gets headaches which can be pretty bad. AMD The 81 year old male presents for injection OU due to AMD in the right and left eyes. macular degeneration followup Th e 81 year old male presents for an Eylea injection only for macular degeneration in both eyes. macular degeneration followup Th e 81 year old male presents for evaluation of macular degeneration in both eyes. The patient reports he is no longer seeing swirls of colors and snowflakes in his vision since last visit one month ago. The patient denies eye pain and flashes. IO-Eylea OU AMD The 81 year old male presents for IO-Eylea OU AMD . vision changes The 81 year old male presents for evaluation of vision changes in the left eye. The patient reports a sudden decrease in after coming in from outside his distance vision was very blurry. The onset was sudden. It affects decrease in both near and distance vision. The symptom is all of the time. The patient denies flashes and eye pain. AMD The 81 year old male presents for evaluation of AMD in both eyes. stable vision The patient stat es stable vision in both eyes, since last visit. It affects both near and distance vision. The symptom is all of the time. The condition is unchanged. In addition, the condition is associated with daily activities and chores. Associated symptoms include: floaters. macular degeneration followup Th e 81 year old male presents for an evaluation of an Eylea injection for macular degeneration in the left eye. macular degeneration followup Th e 81 year old male presents for evaluation of macular degeneration followup in both eyes. The patient reports increased cloudy vision distance and near since last visit 7 weeks ago, however the patient did read well on the eye chart today. There has been discussion of switching to Eylea if no improvement. The patient denies floaters, flashes and floaters. AMD The 81 year old male presents for evaluation of AMD in both eyes. no changes The patient is p resent for evaluation of no changes in the right eye. blurry vision The patient stat es blurry vision in the left eye. It started about 3 week(s) ago. The onset was gradual. It affects both near and distance vision. The condition is worsening. Associated symptoms include: floaters. 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 The 80 y ear old male is present for his 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 OS. macular degeneration followup Th e 80 year old male presents for evaluation of macular degeneration followup in both eyes. The patient reports improved vision since last exam 4 weeks ago. The patient denies eye pain and flashes. 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 decreased vision The patient rep orts decreased vision in the left eye. It started about 3 month(s) ago. It occurs constantly. It affects both near and distance vision and patient states occasionally he sees little blue lights in vision. macular degeneration followup Th e 80 year old male presents for an injection only for macular degeneration in the left eye. decreased vision The patient is complains of decreased vision in the left eye. He states that TIKI he noticed what he described as a vibrating sensation happening in his left eye. He states that it seemed to get better a few days later. However, over the last couple of weeks he has noticed the vibrating happening again, occasionally - mostly when he watches TV or if he's sitting in a dark room. He believes it happens more often when he transitions from bright light into darker light. He has noticed he is now having more trouble while driving as well. AMD The 80 year old male presents for IO Avastin for AMD in the left eye. macular degeneration followup Th e 80 year old male presents for evaluation of macular degeneration followup in the right and left eyes. decreased vision The patient com [place] of decreased vision in the unsure which eye. It started about 3 week(s) ago. The onset was sudden. It affects decrease in both near and distance vision. The symptom is intermittently. The condition is moderate. The condition is described as blurry vision. In addition, the condition is associated with daily activities and chores. AMD The 80 year old male presents for evaluation of AMD in the right and left eyes. occasional red flash The patient complains of occasional red flash in the right eye. It started about 1 month(s) ago. It occurs during the day. The onset was sudden. The symptom is frequently. The condition is mild. In addition, the condition is associated with daily activities and chores. Patient denies decreased vision. AMD The 80 year old male presents for AMD in the right eye. Avastin INJ OD. stable vision The patient repo rts stable vision in the right eye since last visit about 6 week(s) ago. It occurs constantly. It affects both near and distance vision. In addition, the condition is associated with daily activities and chores. Patient denies flashes and floaters. Patient reports no vision changes in the left eye. AMD The 79 year old male presents for AMD in the right eye. decreased vision The patient rep orts decreased vision in the right eye since last visit about 6 week(s) ago. It occurs constantly. It affects both near and distance vision. In addition, the condition is associated with daily activities and chores. Patient denies flashes and floaters. Patient reports no vision changes in the left eye. macular degeneration The 79 year old male presents for macular degeneration in both eyes. decrease in vision The patient r eports a decrease in vision in both eyes x 4-5 weeks. The onset was gradual. It affects distance vision. The symptom is all of the time. The condition is mild. In addition, the condition is associated with daily activities and chores. Patient reports a sudden flickering of light in the left eye x 3 months intermittently. macular degeneration The 79 year old male self referral for macular degeneration in both eyes (previous patient wants to return to this practice). dark vision (like be hind a thick cloud) The patient reports dark vision (like behind a thick cloud) in the right eye that has worsened in the last 3 months. The onset was gradual. It affects both near and distance vision. The symptom is all of the time. The condition is moderate. In addition, the condition is associated with daily activities and chores. Patient denies flashes. Patient reports he has gotten injections in the right eye x about 1 year every 4-6 weeks in the right eye (has not had an injection in about 3 months). Patient reports the vision centrally to nasally is darker in the right eye. Patient reports he has a floaters in the right eye that light up described as looking like a windmill intermittent not affecting the vision x 1 year. Patient reports no visual changes in the left eye. 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, left eye, with actv chrdl neovas Impression/Plan Related to 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, left eye, with actv chrdl neovas Impression/Plan Related to 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, left eye, with actv chrdl neovas Impression/Plan Related to 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, left eye, with actv chrdl neovas Impression/Plan Related to 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, left eye, with actv chrdl neovas Impression/Plan Related to 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, left eye, with actv chrdl neovas Impression/Plan Related to 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, left eye, with actv chrdl neovas Impression/Plan Related to 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, left eye, with actv chrdl neovas Return in 4 week(s) with Ivonne Aggarwal MD for IO EYL OS w/OCT Related to Exdtve age-rel mclr degn, left eye, with actv chrdl neovas Impression/Plan 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, right eye, with inactive scar Impression/Plan Related to 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, left eye, with actv chrdl neovas Impression/Plan Related to Essen tial (primary) hypertension 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 Impression/Plan 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, bi, with actv chrdl neovas 5 wk fu oct ou eyl os photos Rel ated to Exuda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, bi, with actv chrdl neovas Impression/Plan 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, bi, with actv chrdl neovas Impression/Plan 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, bi, with actv chrdl neovas Impression/Plan Related to Prese nce of intraocular lens Impression/Plan Related to Essen tial (primary) hypertension Impression/Plan 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, bi, with actv chrdl neovas Impression/Plan 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, bi, with actv chrdl neovas Return in 4 week(s) with Ivonne Aggarwal MD for IO AVN OS/OCT OU/DILATE OU Related to Exuda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, bi, with actv chrdl neovas Impression/Plan 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, bi, with actv chrdl neovas Return in 1 month wi th Ivonne Aggarwal MD for IO EYL OS/ OCT OU Related to Exuda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, bi, with actv chrdl neovas Impression/Plan 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, bi, with actv chrdl neovas Return in 4 week(s) with Ivonne Aggarwal MD for IO EYL OS/OCT OU Related to Exuda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, bi, with actv chrdl neovas Impression/Plan 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, bi, with actv chrdl neovas Return in 4 week(s) with Ivonne Aggarwal MD for IO EYL OS/ OCT OU Related to Exuda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, bi, with actv chrdl neovas Impression/Plan 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, bi, with actv chrdl neovas Return in 1 month wi th Ivonne Aggarwal MD for SWITCH TO EYLEA OS NEXT VISIT/OCT OU Related to Exuda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, bi, with actv chrdl neovas Impression/Plan 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, bi, with actv chrdl neovas Return 4 weeks OCT/ FU/ Poss AVN OS/ Dilate OU Related to Exuda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, bi, 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, low risk, bilateral Impression/Plan 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, bi, with actv chrdl neovas Return in 5 week(s) with Ivonne Aggarwal MD for IO AVN Ou/OCT OU Related to Exuda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, bi, with actv chrdl neovas Impression/Plan 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, bi, 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, low risk, bilateral Return in 6 week(s) with Ivonne Aggarwal MD for IO AVN OU w/OCT (switch from EYL) Related to Exuda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, bi, 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 Impression/Plan 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, bi, with actv chrdl neovas Impression/Plan 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, bi, with actv chrdl neovas Return 4 weeks Eval, OCT, Possible Eylea OU Related to Exuda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, bi, with actv chrdl neovas Impression/Plan 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, bi, with actv chrdl neovas Return in 1 month wi th Ivonne Aggarwal MD for IO EYL OU w/OCT Related to Exuda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, bi, with actv chrdl neovas Impression/Plan Related to Prese nce of intraocular lens 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, left eye, with actv chrdl neovas Impression/Plan Related to Essen tial (primary) hypertension Impression/Plan Related to Prese nce of intraocular lens Impression/Plan Related to 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, right eye, with actv chrdl neovas Return in Related to 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, left eye, with actv chrdl neovas Impression/Plan Related to 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, left eye, with actv chrdl neovas Impression/Plan Related to Essen tial (primary) hypertension Impression/Plan Related to Prese nce of intraocular lens Impression/Plan 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, right eye, with inactive scar Impression/Plan Related to 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, left eye, with actv chrdl neovas Return in Related to 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, left eye, with actv chrdl neovas Impression/Plan Related to Prese nce of intraocular lens Impression/Plan Related to Essen tial (primary) hypertension Impression/Plan Related to 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, left eye, with actv chrdl neovas Impression/Plan 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, right eye, with inactive scar Return in 2 months w ith Mehrdad Britt MD for follow up, OCT, possible Avastin OS Related to Exdtve age-rel mclr degn, left eye, with actv chrdl neovas Impression/Plan Related to 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, left eye, with actv chrdl neovas Return in 4-6 week(s ) with Mehrdad Britt MD for INJ AVN OS w/OCT Related to Exdtve age-rel mclr degn, left eye, with actv chrdl neovas Impression/Plan Related to Essen tial (primary) hypertension Impression/Plan Related to Prese nce of intraocular lens Impression/Plan 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, right eye, with inactive scar Impression/Plan Related to 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, left eye, with actv chrdl neovas Return in Related to 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, left eye, with actv chrdl neovas Impression/Plan Related to 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, left eye, with actv chrdl neovas Apr-27-2021 Impression/Plan Related to Essen tial (primary) hypertension Impression/Plan Related to Prese nce of intraocular lens Impression/Plan Related to 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, right eye, with inact chrdl neovas Return in 8 week(s) with Mehrdad Britt MD for follow up, OCT, possible Avastin OS Related to Exdtve age-rel mclr degn, left eye, with actv chrdl neovas Impression/Plan Related to 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, left eye, with actv chrdl neovas Return in Related to 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, left eye, with actv chrdl neovas Impression/Plan Related to 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, left eye, with actv chrdl neovas Return in 6-8 week(s ) with Mehrdad Britt MD for INJ AVN OS w/OCT. Dilate OS only! Related to Exdtve age-rel mclr degn, left eye, with actv chrdl neovas Impression/Plan Related to 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, left eye, with actv chrdl neovas Return in 1 month wi th Mehrdad Britt MD for INJ AVN OS w/OCT Related to Exdtve age-rel mclr degn, left eye, with actv chrdl neovas Impression/Plan Related to 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, right eye, with inact chrdl neovas Impression/Plan Related to Essen tial (primary) hypertension Impression/Plan Related to Prese nce of intraocular lens Impression/Plan Related to 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, left eye, with actv chrdl neovas Return in 2 months w ith Mehrdad Britt MD for follow up and OCT. The need for additional tx to be determined Related to Exdtve age-rel mclr degn, right eye, with actv chrdl neovas Impression/Plan Related to 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, right eye, with actv chrdl neovas Return in 5 week(s) with Mehrdad Britt MD for IO/Avastin OD/OCT Related to Exdtve age-rel mclr degn, right eye, with actv chrdl neovas - 5 week(s) Mehrdad Britt MD for IO/Avastin OD/OCT Impression/Plan Related to 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, right eye, with actv chrdl neovas Return in 4-6 week(s ) with Mehrdad Britt MD for INJ AVN OD w/OCT Related to Exdtve age-rel mclr degn, right eye, with actv chrdl neovas Impression/Plan Related to 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, right eye, with actv chrdl neovas Impression/Plan 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 - Will continue to monitor. 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 - Will continue to monitor. 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 The patient was advised to monitor an Amsler grid on a daily basis and to use the antioxidant vitamins as described in the Age Related Eye Disease Study. The differences between smokers and non-smokers vitamins were discussed. They were instructed to call immediately with any grid or vision changes. Appropriate follow up with primary eye gericare aide was recommended. Related to Nonexudative senile macular degeneration of retina - Return in 4 months. 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 - Will continue to monitor. The patient was again encouraged to take the AREDS vitamin and monitor the vision at home with an Amsler Grid. 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 - Will continue to observe condition and or symptoms. Discussed diagnosis in detail with patient. 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 - Will monitor closely for signs of progression. 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 - Nonexudative Age Related Macular Degeneration was noted on examination today and explained to the patient. The patient was advised to monitor an Amsler grid on a daily basis and to use the antioxidant vitamins as described in the Age Related Eye Disease Study. The differences between smokers and non-smokers vitamins were discussed. They were instructed to call immediately with any grid or vision changes. Appropriate follow up with primary eye gericare aide was recommended. 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 Britt for follow up exam and OCT. Related to Nonexudative senile macular degeneration of retina [facility] Work Phone: [phone] Evaluation note* Type Assessment Date assessment Exdtve age-rel mclr degn, left e ye, with actv chrdl neovas impression Exdtve age-rel mclr degn, left eye, with actv chrdl neovas: [id number] Left [facility] Work Phone: [phone] History of Present illness Narrative* Encounter Date Complaint History Of Prese nt Illness AMD The 84 year old patient presents for evaluation of AMD in the right and left eyes. Patient reports hazy vision in both eyes that started 1 week ago. He denies flashes, floaters, and eye pain. Exudative ARMD The 83 year old male presents for 8 week evaluation of Exudative ARMD in the right and left eyes. Patient states no changes in his vision. Patient denies any floaters or flashes of light. Exudative ARMD The 83 year old male presents for 8 weeks evaluation of Exudative ARMD in the left eye. Patient states that after two weeks after the injection he began to see bad changes in his vision. He states that faces and colors looked very distorted. He states that he believes the 8 weeks to long to go for his injections. He wishes to go back to 4 week injections. Exudative ARMD The 83 year old male presents for 6 week evaluation of Exudative ARMD in the left eye. Patient states over the last 2 weeks the vision seems to be more blurry. Patient states that a few days ago he saw floaters that seemed to be different colors. AMD The 83 year old patient presents for evaluation and treatment of AMD in the left eye. Patient states his vision is stable since his last appointment. Exudative ARMD The 83 year old male presents for 4 week evaluation of Exudative ARMD in the left eye. Patient states the vision is stable. Patient denies any floaters or flashes of light right now. Patient states last month the flashes were worse then now. AMD The 83 year old patient presents for evaluation of AMD in the left eye. Patient reports stable vision. No complaints from the patient at this time. AMD The 83 year old male presents for management of AMD in the left eye. Pt reports vision is not as good over the last month, he is light headed and is being evaluated for vertigo. He reports the vision never got better after last injection unlike previous injections 3-4 days later the vision would be better. He has a few days where he had colorful images in the vision that were episodic and the spindles of the railing were distorted, that was about 2 weeks ago. He has had flashes but not sure which eye. He denies floaters and ocular pain. He stopped using eye wash for the last few weeks as well. He also reports stopping the eye vitamins 2 weeks ago. Follow Up of AMD The 83 year old male presents for evaluation and 5 week Follow Up of AMD in the right and left eyes with treatment in the left eye. Pt reports noticing a change in vision in the fifth week, things not as sharp and hazy vision OS. He denied flashes of light, floaters and ocular pain. macular degeneration The 82 year old male presents for evaluation of macular degeneration in the left eye. Patient states his vision in the left eye remained good during the 5 weeks since last visit. Patient denies pain in either eye, just slight itching with no discharge. AMD The 82 year old male presents for treatment of AMD in the left eye. AMD The 82 year old male presents for evaluation of AMD in the right eye and left eye. Patient reports that vision in the left eye has worsened over the last week, right eye is poor vision but stable. Patient denies ocular pain, flashes of light, or floaters in both eyes. AMD The 82 year old male presents for evaluation of AMD in the left eye with treatment of Eylea. AMD The 82 year old male presents for evaluation of AMD in the right and left eyes. Patient states his vision has worsened, he reports things are blurry and sometimes look distorted. Patient denies flashes, floaters, and eye pain. macular degeneration followup Th e 82 year old male presents for evaluation of macular degeneration followup in the right and left eyes. It started about 3 month(s) ago. It occurs constantly. The onset was gradual. It affects decrease in both near and distance vision. The symptom is all of the time. The condition is mild. AMD The 82 year old male presents for evaluation of AMD in the left eye with treatment of Eylea. AMD The 82 year old male presents for evaluation of AMD in the left eye with treatment of Eylea. Exudative ARMD The 82 year old male presents for 4 weeks evaluation. Patient states the last 3-4 days he can tell there is a decrease in his vision. Patient states that he see's a yellow coloring when looking at certain images, and there are also dots in the yellow images. Oct- injection of Avastin The 82 year old male reports for injection of Avastin in the right and left eyes due to AMD. Has noticed a slight decrease in vision in the past week. No flashes of light of floaters. possible Avastin int ravitreal injection The 82 year old male presents for evaluation of possible Avastin intravitreal injection in the right eye and left eye for treatment of AMD. Exudative ARMD The 82 year old male presents for Eylea injection OU. Patient states that after he gets injections he feels dizzy for at least 2 weeks after. He also states that he gets headaches which can be pretty bad. AMD The 81 year old male presents for injection OU due to AMD in the right and left eyes. macular degeneration followup Th e 81 year old male presents for an Eylea injection only for macular degeneration in both eyes. macular degeneration followup Th e 81 year old male presents for evaluation of macular degeneration in both eyes. The patient reports he is no longer seeing swirls of colors and snowflakes in his vision since last visit one month ago. The patient denies eye pain and flashes. IO-Eylea OU AMD The 81 year old male presents for IO-Eylea OU AMD . vision changes The 81 year old male presents for evaluation of vision changes in the left eye. The patient reports a sudden decrease in after coming in from outside his distance vision was very blurry. The onset was sudden. It affects decrease in both near and distance vision. The symptom is all of the time. The patient denies flashes and eye pain. AMD The 81 year old male presents for evaluation of AMD in both eyes. stable vision The patient stat es stable vision in both eyes, since last visit. It affects both near and distance vision. The symptom is all of the time. The condition is unchanged. In addition, the condition is associated with daily activities and chores. Associated symptoms include: floaters. macular degeneration followup Th e 81 year old male presents for an evaluation of an Eylea injection for macular degeneration in the left eye. macular degeneration followup Th e 81 year old male presents for evaluation of macular degeneration followup in both eyes. The patient reports increased cloudy vision distance and near since last visit 7 weeks ago, however the patient did read well on the eye chart today. There has been discussion of switching to Eylea if no improvement. The patient denies floaters, flashes and floaters. AMD The 81 year old male presents for evaluation of AMD in both eyes. no changes The patient is p resent for evaluation of no changes in the right eye. blurry vision The patient stat es blurry vision in the left eye. It started about 3 week(s) ago. The onset was gradual. It affects both near and distance vision. The condition is worsening. Associated symptoms include: floaters. 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 The 80 y ear old male is present for his 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 OS. macular degeneration followup Th e 80 year old male presents for evaluation of macular degeneration followup in both eyes. The patient reports improved vision since last exam 4 weeks ago. The patient denies eye pain and flashes. 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 decreased vision The patient rep orts decreased vision in the left eye. It started about 3 month(s) ago. It occurs constantly. It affects both near and distance vision and patient states occasionally he sees little blue lights in vision. macular degeneration followup Th e 80 year old male presents for an injection only for macular degeneration in the left eye. decreased vision The patient is complains of decreased vision in the left eye. He states that TIKI he noticed what he described as a vibrating sensation happening in his left eye. He states that it seemed to get better a few days later. However, over the last couple of weeks he has noticed the vibrating happening again, occasionally - mostly when he watches TV or if he's sitting in a dark room. He believes it happens more often when he transitions from bright light into darker light. He has noticed he is now having more trouble while driving as well. AMD The 80 year old male presents for IO Avastin for AMD in the left eye. macular degeneration followup Th e 80 year old male presents for evaluation of macular degeneration followup in the right and left eyes. decreased vision The patient com [place] of decreased vision in the unsure which eye. It started about 3 week(s) ago. The onset was sudden. It affects decrease in both near and distance vision. The symptom is intermittently. The condition is moderate. The condition is described as blurry vision. In addition, the condition is associated with daily activities and chores. AMD The 80 year old male presents for evaluation of AMD in the right and left eyes. occasional red flash The patient complains of occasional red flash in the right eye. It started about 1 month(s) ago. It occurs during the day. The onset was sudden. The symptom is frequently. The condition is mild. In addition, the condition is associated with daily activities and chores. Patient denies decreased vision. AMD The 80 year old male presents for AMD in the right eye. Avastin INJ OD. stable vision The patient repo rts stable vision in the right eye since last visit about 6 week(s) ago. It occurs constantly. It affects both near and distance vision. In addition, the condition is associated with daily activities and chores. Patient denies flashes and floaters. Patient reports no vision changes in the left eye. AMD The 79 year old male presents for AMD in the right eye. decreased vision The patient rep orts decreased vision in the right eye since last visit about 6 week(s) ago. It occurs constantly. It affects both near and distance vision. In addition, the condition is associated with daily activities and chores. Patient denies flashes and floaters. Patient reports no vision changes in the left eye. macular degeneration The 79 year old male presents for macular degeneration in both eyes. decrease in vision The patient r eports a decrease in vision in both eyes x 4-5 weeks. The onset was gradual. It affects distance vision. The symptom is all of the time. The condition is mild. In addition, the condition is associated with daily activities and chores. Patient reports a sudden flickering of light in the left eye x 3 months intermittently. macular degeneration The 79 year old male self referral for macular degeneration in both eyes (previous patient wants to return to this practice). dark vision (like be hind a thick cloud) The patient reports dark vision (like behind a thick cloud) in the right eye that has worsened in the last 3 months. The onset was gradual. It affects both near and distance vision. The symptom is all of the time. The condition is moderate. In addition, the condition is associated with daily activities and chores. Patient denies flashes. Patient reports he has gotten injections in the right eye x about 1 year every 4-6 weeks in the right eye (has not had an injection in about 3 months). Patient reports the vision centrally to nasally is darker in the right eye. Patient reports he has a floaters in the right eye that light up described as looking like a windmill intermittent not affecting the vision x 1 year. Patient reports no visual changes in the left eye. 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, left eye, with actv chrdl neovas Impression/Plan Related to 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, left eye, with actv chrdl neovas Impression/Plan Related to 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, left eye, with actv chrdl neovas Impression/Plan Related to 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, left eye, with actv chrdl neovas Impression/Plan Related to 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, left eye, with actv chrdl neovas Impression/Plan Related to 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, left eye, with actv chrdl neovas Impression/Plan Related to 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, left eye, with actv chrdl neovas Return in 4 week(s) with Ivonne Aggarwal MD for IO EYL OS w/OCT Related to Exdtve age-rel mclr degn, left eye, with actv chrdl neovas Impression/Plan 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, right eye, with inactive scar Impression/Plan Related to 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, left eye, with actv chrdl neovas Impression/Plan Related to Essen tial (primary) hypertension 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 Impression/Plan 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, bi, with actv chrdl neovas 5 wk fu oct ou eyl os photos Rel ated to Exuda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, bi, with actv chrdl neovas Impression/Plan 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, bi, with actv chrdl neovas Impression/Plan 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, bi, with actv chrdl neovas Impression/Plan 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, bi, with actv chrdl neovas Impression/Plan Related to Essen tial (primary) hypertension Impression/Plan Related to Prese nce of intraocular lens Impression/Plan 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, bi, with actv chrdl neovas Return in 4 week(s) with Ivonne Aggarwal MD for IO AVN OS/OCT OU/DILATE OU Related to Exuda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, bi, with actv chrdl neovas Impression/Plan 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, bi, with actv chrdl neovas Return in 1 month wi th Ivonne Aggarwal MD for IO EYL OS/ OCT OU Related to Exuda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, bi, with actv chrdl neovas Impression/Plan 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, bi, with actv chrdl neovas Return in 4 week(s) with Ivonne Aggarwal MD for IO EYL OS/OCT OU Related to Exuda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, bi, with actv chrdl neovas Impression/Plan 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, bi, with actv chrdl neovas Return in 4 week(s) with Ivonne Aggarwal MD for IO EYL OS/ OCT OU Related to Exuda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, bi, with actv chrdl neovas Impression/Plan 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, bi, with actv chrdl neovas Return in 1 month wi th Ivonne Aggarwal MD for SWITCH TO EYLEA OS NEXT VISIT/OCT OU Related to Exuda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, bi, with actv chrdl neovas Impression/Plan 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, bi, with actv chrdl neovas Return 4 weeks OCT/ FU/ Poss AVN OS/ Dilate OU Related to Exuda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, bi, 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, low risk, bilateral Impression/Plan 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, bi, with actv chrdl neovas Return in 5 week(s) with Ivonne Aggarwal MD for IO AVN Ou/OCT OU Related to Exuda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, bi, 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, low risk, bilateral Impression/Plan 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, bi, with actv chrdl neovas Return in 6 week(s) with Ivonne Aggarwal MD for IO AVN OU w/OCT (switch from EYL) Related to Exuda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, bi, with actv chrdl neovas Impression/Plan 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, bi, 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 Impression/Plan 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, bi, with actv chrdl neovas Return 4 weeks Eval, OCT, Possible Eylea OU Related to Exuda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, bi, with actv chrdl neovas Impression/Plan 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, bi, with actv chrdl neovas Return in 1 month wi th Ivonne Aggarwal MD for IO 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, bi, with actv chrdl neovas Impression/Plan Related to Essen tial (primary) hypertension Impression/Plan Related to Prese nce of intraocular lens Impression/Plan 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, bi, with actv chrdl neovas Return 6 weeks IO Eylea OS and O CT Related to Exdtve age-rel mclr degn, left eye, with actv chrdl neovas Impression/Plan Related to Essen tial (primary) hypertension Impression/Plan Related to Prese nce of intraocular lens Impression/Plan Related to 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, left eye, with actv chrdl neovas Impression/Plan Related to 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, right eye, with actv chrdl neovas Return in Related to 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, left eye, with actv chrdl neovas Impression/Plan Related to 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, left eye, with actv chrdl neovas Impression/Plan Related to Essen tial (primary) hypertension Impression/Plan Related to Prese nce of intraocular lens Impression/Plan 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, right eye, with inactive scar Impression/Plan Related to 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, left eye, with actv chrdl neovas Return in Related to 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, left eye, with actv chrdl neovas Impression/Plan Related to 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, left eye, with actv chrdl neovas Impression/Plan Related to Essen tial (primary) hypertension Impression/Plan Related to Prese nce of intraocular lens Impression/Plan 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, right eye, with inactive scar Return in 2 months lizet Britt MD for follow up, OCT, possible Avastin OS Related to Exdtve age-rel mclr degn, left eye, with actv chrdl neovas Impression/Plan Related to 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, left eye, with actv chrdl neovas Return in 4-6 week(s ) with Mehrdad Britt MD for INJ AVN OS w/OCT Related to Exdtve age-rel mclr degn, left eye, with actv chrdl neovas Impression/Plan Related to 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, left eye, with actv chrdl neovas Impression/Plan Related to Essen tial (primary) hypertension Impression/Plan Related to Prese nce of intraocular lens Impression/Plan 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, right eye, with inactive scar Return in Related to 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, left eye, with actv chrdl neovas Impression/Plan Related to 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, left eye, with actv chrdl neovas Impression/Plan Related to Essen tial (primary) hypertension Impression/Plan Related to Prese nce of intraocular lens Impression/Plan Related to 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, right eye, with inact chrdl neovas Return in 8 week(s) with Mehrdad Britt MD for follow up, OCT, possible Avastin OS Related to Exdtve age-rel mclr degn, left eye, with actv chrdl neovas Impression/Plan Related to 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, left eye, with actv chrdl neovas Return in Related to 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, left eye, with actv chrdl neovas Impression/Plan Related to 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, left eye, with actv chrdl neovas Return in 6-8 week(s ) with Mehrdad Britt MD for INJ AVN OS w/OCT. Dilate OS only! Related to Exdtve age-rel mclr degn, left eye, with actv chrdl neovas Impression/Plan Related to 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, left eye, with actv chrdl neovas Return in 1 month wi th Mehrdad Britt MD for INJ AVN OS w/OCT Related to Exdtve age-rel mclr degn, left eye, with actv chrdl neovas Impression/Plan Related to 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, left eye, with actv chrdl neovas Impression/Plan Related to 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, right eye, with inact chrdl neovas Impression/Plan Related to Essen tial (primary) hypertension Impression/Plan Related to Prese nce of intraocular lens Return in 2 months w ith Mehrdad Britt MD for follow up and OCT. The need for additional tx to be determined Related to Exdtve age-rel mclr degn, right eye, with actv chrdl neovas Impression/Plan Related to 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, right eye, with actv chrdl neovas Return in 5 week(s) with Mehrdad Britt MD for IO/Avastin OD/OCT Related to Exdtve age-rel mclr degn, right eye, with actv chrdl neovas Impression/Plan Related to 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, right eye, with actv chrdl neovas - 5 week(s) Mehrdad Britt MD for IO/Avastin OD/OCT Return in 4-6 week(s ) with Mehrdad Britt MD for INJ AVN OD w/OCT Related to Exdtve age-rel mclr degn, right eye, with actv chrdl neovas Impression/Plan Related to 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, right eye, with actv chrdl neovas Impression/Plan Related to Retin al hemorrhage, right eye Impression/Plan Related to Prese nce of intraocular lens Impression/Plan Related to 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 The patient was advised to monitor an Amsler grid on a daily basis and to use the antioxidant vitamins as described in the Age Related Eye Disease Study. The differences between smokers and non-smokers vitamins were discussed. They were instructed to call immediately with any grid or vision changes. Appropriate follow up with primary eye gericare aide was recommended. 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 - Will continue to monitor. 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 - Will continue to monitor. 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 - Will continue to monitor. The patient was again encouraged to take the AREDS vitamin and monitor the vision at home with an Amsler Grid. 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 - Nonexudative Age Related Macular Degeneration was noted on examination today and explained to the patient. The patient was advised to monitor an Amsler grid on a daily basis and to use the antioxidant vitamins as described in the Age Related Eye Disease Study. The differences between smokers and non-smokers vitamins were discussed. They were instructed to call immediately with any grid or vision changes. Appropriate follow up with primary eye gericare aide was recommended. 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 Related to Senile nuclear sclerosis - Return in [address] Britt for follow up exam and OCT. 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 - Will monitor closely for signs of progression. 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 - Will continue to observe condition and or symptoms. Discussed diagnosis in detail with patient. 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 They are also encouraged to continue exercise to achieve/maintain a normal BMI. Feb, Benign paroxysmal positional vertigo of left ear (ICD-10 - H81.12) Avoid abrupt changes in head position. Described home exercises but doubt capable of complying. Discussed referral to PT but would be a transportation problem due to his poor vision. Suggested hearing test to r/o unilateral hearing loss, which may indicated an AN. Suggested referral to ENT for further evaluation Feb, Type 2 diabetes tc itus with hyperglycemia, without long-term current use of insulin (ICD-10 - E11.65) This patient is following a comprehensive diabetic treatment plan. They are checking their feet daily for calluses and nonhealing ulcers. They are being seen for yearly dilated eye examinations. Goals: SBP less than 130, LDL less than 100, FBS less than 140, A1C less than 7%. They are checking their BS daily, will which are reviewed at the office visit. Continue regular routine monitoring of A1C,] Microalbumin, Dilated eye exam and Foot exam Feb, Hypercholesterolemia (ICD-10 - E78.00) Instructed on diet and exercise with continued statin therapy.Discussed the beneficial effects of lowering cholesterol in reducing the risk for cerebrovascular and cardiovascular disease. 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 No inhalers used on routine basis. Chronic, mild dyspnea. Feb, Cigarette nicotine dependence in remission (ICD-10 - F17.211) Continue abstinence. Beyond quidelines for yearly LDCT lungs [facility] Other 06-26-2023 Evaluation note* Encounter Date Diagnosis Assessment Notes Treatment Notes Treatment Clinical Notes Nov, Primary hypertension (ICD-10 - I10) This patient is instructed to consume a healthy, low-fat, low-salt diet. They are also encouraged to continue exercise to achieve/maintain a normal BMI. Nov, Hypercholesterolemia (ICD-10 - E78.00) Instructed on diet and exercise with continued statin therapy.Discussed the beneficial effects of lowering cholesterol in reducing the risk for cerebrovascular and cardiovascular disease. Nov, Type 2 diabetes tc itus with hyperglycemia, without long-term current use of insulin (ICD-10 - E11.65) This patient is following a comprehensive diabetic treatment plan. They are checking their feet daily for calluses and nonhealing ulcers. They are being seen for yearly dilated eye examinations. Goals: SBP less than 130, LDL less than 100, FBS less than 140, AC and A1C less than 7%. They are checking their BS daily, will which are reviewed at the office visit. 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 Mucinex as needed for phlegm Nov, Cigarette nicotine dependence in remission (ICD-10 - F17.211) Nov, Generally unsteady (ICD-10 - R26.81) Fall precautions. Push fluids, healthy diet. Reviewed previous evaluation, which was unremarkable, don't feel necessary to repeat. Monitor for now. Nov, Other fatigue (ICD-1 0 - R53.83) Push fluids, healthy diet, check labs [facility] Other 03-15-2023 Hospital Discharge instructions Follow Up Care 08/21/2022 16:35:55 With:JOCE BARRETT, Mikhail Murphy, URL Address: [facility] [address] [address]- When: Unknown [facility] Consult note* Clinical Note Date No Information [facility] Work Phone: Discharge summary* Clinical Note Date No Information [facility] Work Phone: Evaluation + Plan note No data available for this section [facility] Evaluation noteNo [facility] [employer] Other Evaluation note* Diagnosis Onset Date Resolution Status BPPV (benign paroxysmal positional vertigo) acute Chronic bronchitis, mucopurulent acute Elevated cholesterol acute Essential hypertension acute Type 2 diabetes mellitus with hyperglycemia acute [facility] Work Phone: Evaluation note* Diagnosis Onset Date Resolution Status BPPV (benign paroxysmal positional vertigo) acute Chronic bronchitis, mucopurulent acute Elevated cholesterol acute Essential hypertension acute Medicare annual wellness visit, subsequent acute Type 2 diabetes mellitus with hyperglycemia acute [facility] Work Phone: Evaluation note* Diagnosis Onset Date Resolution Status Admit Date Chronic bronchitis, mucopurulent acu te August 06, 2024 10:30am CLOUD (dyspnea on exertion) acute August 06, 2024 10:30am Elevated cholesterol acute Febr uary 2024 10:30am Essential hypertension acute Fe bruary 2024 10:30am Hyperprolactinemia acute Februa ry 2024 10:30am Type 2 diabetes mellitus wit h hyperglycemia acute August 06, 2 025 10:30am [facility] Work Phone: History and physical note* Clinical Note Date No Information [facility] Work Phone: History general Narrative - Reported* Type Description Date Medical History Detached retina, left Medical History H/O TIA (transient ischemic louis ck) and stroke Medical History Elevated PSA Medical History Essential hypertension Medical History High risk medication use Medical History Prolactinoma Medical History Nicotine dependence, cigarettes, in remission Medical History Controlled type 2 di abetes mellitus with hyperglycemia, without long-term current use of insulin Medical History Hyperlipidemia type II Medical History Chronic bronchitis, mucopurulent Medical History History of retinal hemorrhage Medical History COPD with acute exacerbation Medical History Benign prostatic hyp erplasia with lower urinary tract symptoms Medical History CLOUD (dyspnea on exertion) Medical History Heart palpitations Surgical History Herniorrhaphy, ingui nal, indirect, laparoscopic with graft bilateral Surgical History umbilical hernia open repair Surgical History right shoulder arthroscopy 2002 Hospitalization History see surgical history [facility] Other Progress note No data available for this section [facility] Progress note* Clinical Note Date No Information [facility] Work Phone: Reason for referral (narrative)* Reason Referral for BPPV Diagnosis 1 Benign paroxysmal po sitional vertigo of left ear (H81.12) Referral Organization [facility] Referring Provider First Name Abdiaziz Referring Provider Last Name Murphy Referring Provider Specialty Internal Me dicine Referred Organization [facility] Referred Provider Cheli Alejo Referred Address ,[place], [place],[address] Referred Provider Specialty Ear, Nose an d Throat Referral Priority Routine General Notes Mr. Carranza presents wit h recurrent episodes of dizziness. He states his symptoms are becoming more frequent and interfere with ADL. His symptoms includes lightheadedness, unsteadiness and spinning. He has loss of hearing and tinnitus. His neurovascular evaluation has not revealed an etiology to his symptoms. The [place] reproduced his symptoms with the left ear dependent. His orthostatic measurements were normal. He has no focal neurologic deficits. [facility] Other Reason for referral (narrative)* Reason For Referral No Information [facility] Work Phone: Summary Purpose Family History No Family History Records Found Relationship Condition Age at Onset Recorded Date/T roger father Heart disease Unknown History of stroke Unknown Family Member Type Diagnosis Age At Onset Problem (finding) Family history of strok e Problem (finding) Family history of hyper tension Advance Directives No Advanced Directives Records Found Advance Directive Response Recorded Date/ Time Advance Directives No September 30, 9:25am Directive Yes / No Effective Date File Name No Information Advance Directive Response Recorded Date/ Time Advance Directives No September 30 024 8:25am Chief Complaint and Reason for Visit Chief Complaint Amb Documentation Dizziness Reason for Visit BPPV (benign paroxys mal positional vertigo) Chronic bronchitis, mucopurulent Elevated cholesterol Essential hypertension Type 2 diabetes mellitus with hyperglycemia Chief Complaint CC Adult Risk Strati fication wellness Reason for Visit BPPV (benign paroxys mal positional vertigo) Chronic bronchitis, mucopurulent Elevated cholesterol Essential hypertension Medicare annual wellness visit, subsequent Type 2 diabetes mellitus with hyperglycemia Chief Complaint Admit Date check up, bp med concerns August 06, 2024 10:30am Reason for Visit Admit Date Chronic bronchitis, mucopurulent Februar y 2024 10:30am CLODU (dyspnea on exertion) August 06, 2024 10:30am Elevated cholesterol August 06, 2024 10:30am Essential hypertension August 06 10:30am Hyperprolactinemia August 06, 2024 10:30am Type 2 diabetes mellitus with hyperglyce vitaliy August 06, 2024 10:30am Additional Source Comments (unrecognized sect ion and content) No Status Records FoundNo Status Records FoundNo Status Records FoundNo Status Records Found INFORMATION SOURCE (unrecogn ized section and content) DATE CREATED AUTHOR 09/17/2022 [facility] DATE CREATED AUTHOR AUTHOR'S ORGANIZ ATION 09/19/2022 [facility] DATE CREATED AUTHOR AUTHOR'S ORGANIZ ATION 08/06/2024 [facility] DATE CREATED AUTHOR AUTHOR'S ORGANIZ ATION 08/13/2024 Renée Zavala [facility] Patient Care team informatio n (unrecognized section and content) Team Status: Active Member Role Status Dates Abdiaziz Arrington DO Primary Care Provider Active Team Status: Inactive Member Role Status Dates Abdiaziz Arrington DO Primary Care Provide r, Attending Provider Active Start: August 06, 2024 End: August 06, 2024 Team Status: Active Member Role Status Dates Abdiaziz Arrington DO Primary Care Provider Active Start: August 19, 2023 CLAUDE Ogden Attending Provider Active Start : August 19, 2023 Team Status: Inactive Member Role Status Dates Abdiaziz Arrington DO Primary Care Provide r, Attending Provider Active Start: October 03, 2023 End: October 03, 2023 Name Effective Dates (start - stop) Status Members No Information Team Status: Active Member Role Status Dates Abdiaziz Arrington DO Primary Care Provide r, Attending Provider Active Start: March 12, 2024 Team Status: Inactive Member Role Status Dates Abdiaziz Arrington DO Primary Care Provide r, Attending Provider Active Start: March 16, 2024 End: March 16, 2024 REASON FOR VISIT (unrecogniz ed section and content) DizzinessdizzinessENT REFERR AL UPDATE Goals (unrecognized section and content) Goals may be documented in a n alternate section FOR RECORDS PERTAINING TO PATIENTS WHO ARE OR HAVE BEEN ENROLLED IN A CHEMICAL DEPENDENCY/SUBSTANCEABUSE PROGRAM, SOME INFORMATION MAY BE OMITTED. This clinical summary was aggregated from multiple sources. Caution should be exercised in using it in the provision of clinical care. This summary normalizes information from multiple sources, and as a consequence, information in this document may materially change the coding, format and clinical context of patient data. In addition, data may be omitted in some cases. CLINICAL DECISIONS SHOULD BE BASED ON THE PRIMARY CLINICAL RECORDS. [facility] [employer] [facility]. provides no warranty or guarantee of the accuracy or completeness of information in this document.
[2024-08-16 12:43] LABS: Estimated Average Glucose 137 mg/dL; Glycohemoglobin A1C 6.4 % (4.5-6.2)
[2024-08-16 12:51] LABS: Alanine Aminotransferase 18 U/L (16-63); Albumin Globulin Ratio 1.1; Albumin Level 3.9 g/dL (3.4-5.0); Alkaline Phosphatase 83 U/L (46-116); Anion Gap 13.9; Aspartate Amino Transferase 10 U/L (15-37); BUN Creatinine Ratio 19.3; Bilirubin Total 0.8 mg/dL (0.2-1.0); Calcium 9.2 mg/dL (8.5-10.1); Carbon Dioxide 29.1 mmol/L (21.0-32.0); Chloride 101 mmol/L (98-107); Estimated GFR (African America >60 (>=60 mL/min/1.73m^2); Estimated GFR (Non-African Ame >60 (>=60 mL/min/1.73m^2); Globulin 3.5 g/dL; Glucose 220 mg/dL (74-106); Sodium 140 mmol/L (136-145); Total Protein 7.4 g/dL (6.4-8.2)
[2024-08-17 04:09] LABS: Prolactin 10.8 ng/mL (3.6-32.0)
== END 2024-08-16 12:13 | disposition home or self-care (01) ==
LOC: LAB 12:15
PROVIDERS: PCP Internal Medicine; Visit Provider Internal Medicine
DX: E11.65 Type 2 diabetes mellitus with hyperglycemia (principal); E22.1 Hyperprolactinemia; I10 Essential (primary) hypertension; R53.83 Other fatigue
CPT/HCPCS: 36415; 80053; 83036; 84146; 85025

== ENCOUNTER 2024-08-19 11:31 | Outpatient (OUT) | payer MEDICARE, OTHER, SELFPAY ==
--- NOTE | 2024-08-19 11:48 | XR_ITS ---
[facility] [place] [id number] Patient Name: JERAD CARRANZA MRN: [id number] date: 1940 Sex: M Assigned Patient Location: LAB Current Patient Location: LAB Accession/Order Number: [id number] Exam Date: 08/19/2024 15:14 Report Date: 08/19/2024 15:30 At the request of: EDVIN HANKS DO Procedure: XR knee LT 4V LEFT KNEE - 4 views CLINICAL HISTORY: Anterior to left knee pain. COMPARISON: None FINDINGS: No knee joint effusion. Prepatellar soft tissue swelling. Mild degenerative changes. No significant joint space narrowing. XR/XR knee LT 4V IMPRESSION: PREPATELLAR SOFT TISSUE SWELLING. MILD DEGENERATIVE CHANGES. NO ACUTE BONY PROCESS. Impression dictated by: Doc Dos Santos Jr. DAnneOAnne08/19/2024 3:30 PM Dictation Location: [place] [address] Electronically authenticated by: [id number] Y Date: 08/19/2024 15:30
[2024-08-19 11:50] LABS: Basophils Percent Auto 0.3 % (0.2-2.0); Eosinophils Absolute Auto 0.1 10^3/uL (0.0-0.7); Hematocrit 46.4 % (42.0-54.0); Hemoglobin 15.7 g/dL (14.0-18.0); Immature Granulocytes Abs Auto 0.08 10^3/uL (0.00-0.03); Immature Granulocytes Pct Auto 0.7 % (0.0-0.5); Lymphocytes Percent Auto 9.1 % (20.5-60.0); Mean Corpuscular HGB Conc 33.8 g/dL (29.9-35.2); Mean Corpuscular Volume 94.5 fL (80.0-94.0); Mean Platelet Volume 11.3 fL (9.5-13.5); Monocytes Absolute Auto 0.6 10^3/uL (0.3-0.8); Monocytes Percent Auto 5.8 % (1.7-12.0); Neutrophils Absolute Auto 9.2 10^3/uL (1.4-6.5); Neutrophils Percent Auto 83.1 % (43.0-75.0); Platelet Count 213 10^3/uL (150-450); Red Blood Count 4.91 10^6/uL (4.70-6.10); Red Cell Distribution Width 12.8 % (11.0-15.0); White Blood Count 11.1 10^3/uL (4.0-11.0)
--- OUTSIDE RECORDS SUMMARY | 2024-08-19 11:50 | XMS_ITS | CCD ---
Author Organization [facility] CliniSyny Care Team Providers Care Social Services Designee Name Role Phone MURPHY, DR PARDO Primary [...] BALL, DR PARDO Admitting Unavailable BALL, DR APRDO Attending Unavailable BALL, DR PARDO Primary Care Unavailable BALL, DR PARDO Consulting Unavailable BALL, DR PARDO Admitting Unavailable BALL, DR PARDO Attending Unavailable BALL, DR PARDO Primary Care Unavailable BALL, DR PARDO Consulting Unavailable MURPHY, ABDIAZIZ Primary Care Physician Mikhail HOBSON Attending Unavailable Ball, Abdiaziz Unavailable [...] ABDIAZIZ Referring Unavailable BALL, ABDIAZIZ Referring Unavailable Cortez Tobias MD, Jay Unavailable Unavailabl e Corporate BARRETT, Doctor Unavailable Unavailable Allergies Allergy Classification Reported Allergen(s) Allergy Type Date of Onset Reaction(s) Facility (1 source) umeclidinium / vilanterol Drug Allergy Unknown [employer] Other (2 sources) Anoro Ellipta *ANTIASTHMATIC AND BRONCHODILATOR AG Propensity to adverse reactions Comment:Dizzy [employer] Other (3 sources) umeclidinium Drug Allergy 03-16-20 [facility] (3 sources) vilanterol Drug Allergy 03-16-20 [facility] Medications Current Medications Medication Drug Class(es) Dates Sig (Normalized) Sig (Original) amLODIPine 2.5 mg oral tablet (4 sources) Dihydropyridine Calcium Channel Raymundo take 1 tablet by mouth once daily amlodipine 2.5 mg tablet take 1 tablet by oral route every day 2.5 MG - Active atorvastatin 80 mg oral tablet (14 sources) HMG-CoA Reductase Inhibitor Start: 01-01-2024 take 1 tablet by mouth once daily in the evening Atorvastatin 80 mg tablet Active 0 .ROUTE .COMPLEX January 01, 2024 7:04am TAKE 1 TABLET BY MOUTH EVERY EVENING Start: 10-01-2023 End: 01-01-2024 take 1 tablet by mouth once daily Atorvastatin 80 mg tablet Discontinued 80 MG PO Daily September 30, 2023 11:00pm January 01, 2024 6:04am losartan potassium 25 mg oral tablet (10 sources) Angiotensin 2 Receptor Raymundo Start: 02-06-2024 [...] mg tablet Discontinued 25 MG PO Daily October 01, 2023 12:00am February 06, 2024 6:47am take 1 tablet by hilda th once daily Losartan Potassium 25 MG TAKE 1 TABLET BY MOUTH EVERY DAY Active predniSONE 20 mg oral tablet (1 source) Start: 08-13-2024 Prednisone 20 mg tablet Active 20 MG PO .COMPLEX 15 August 13, 2024 1:00am 20 mg orally; 1 tab bid w/ food x 5 days, then qd w/ food x 5 days Completed/Discontinued Medications Medication Drug Class(es) Dates Sig (Normalized) Sig (Original) ipratropium bromide 0.042 mg/actuat metered dose nasal spray (7 sources) Anticholinergic Start: 04-09-2024 End: 08-06-2024 take 2 spray(s) nasal route three times daily Ipratropium [place] 42 mcg (0.06 %) spray,non-aerosol Discontinued 0 .ROUTE .COMPLEX 45 May 23, 2024 10:14am August 06, 2024 11:39am INSTILL 2 SPRAYS INTO EACH NOSTRIL 3 TIMES A DAY Start: 03-16-2024 End: 04-09-2024 take 1 spray(s) nasal route three times daily Ipratropium [place] 42 mcg (0.06 %) spray,non-aerosol Discontinued 2 SPRAY INTRANASAL Three times daily March 16, 2024 12:00am April 09, 2024 12:35pm administer into each nostril Problems Active Problems Problem Classification Problem Date Documented Da te Episodic/Chronic Calculus of urinary tract (1 source) Personal history of urinary calculi; Translations: [PERSONAL HISTORY OF URINARY CALCULI] Onset: 3 Episodic Cardiac dysrhythmias (3 sources) Palpitations; Translations: [Palpitations] Episodic Cataract (20 sources) Presence of intraocular lens; Translations: [Senile nuclear sclerosis] Chronic Chronic obstructive pulmonary disease and bronchiectasis (19 sources) Mucopurulent chronic bronchitis; Translations: [Mucopurulent chronic bronchitis] Chronic Conditions associated with dizziness or vertigo (12 sources) Benign paroxysmal positional vertigo; Translations: [Benign paroxysmal vertigo, left ear] Onset: 5 Episodic Diabetes mellitus with complications (18 sources) Type 2 diabetes mellitus with diabetic polyneuropathy; Translations: [Type 2 diabetes mellitus with hyperglycemia] Onset: 2 Chronic Disorders of lipid metabolism (20 sources) Mixed hyperlipidemia; 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] Onset: 2 Chronic Essential hypertension (20 sources) Essential (primary) hypertension; Translations: [Essential hypertension] Onset: 2 Chronic Glaucoma (12 sources) Open angle with borderline findings, low risk, bilateral; Translations: [Preglaucoma, unspecified, bilateral] Chronic Gout and other crystal arthropathies (2 sources) 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; Translations: [Other chondrocalcinosis, left knee] 08-13-2024 Chronic Hyperplasia of prostate (4 sources) Benign prostatic hyperplasia without lower urinary tract symptoms; Translations: [Lower urinary tract symptoms due to benign prostatic hypertrophy] Onset: 3 Chronic Inflammation; infection of eye (except that caused by tuberculosis or sexually transmitteddisease) (3 sources) Unspecified optic neuritis; 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] Onset: 5 Chronic Malaise and fatigue (1 source) Other fatigue Episodic Osteoarthritis (2 sources) Arthritis; Translations: [Unspecified osteoarthritis, unspecified site] 08-13-2024 Chronic Other aftercare (1 source) FDC (current) use of antithrombotics/antipl atelets; Translations: [CORRECTION ANTITHROMBOT/ANTIPLATL ETS] Onset: 3 Episodic Other aftercare (1 source) Other joint terminal attack controller (current) drug therapy; Translations: [OTH CORRECTION CURRENT DRUG THERAPY] Onset: 3 Episodic Other aftercare (3 sources) H/O: high risk medication; Translations: [Other penitentiary (current) drug therapy] Episodic Other and unspecified benign neoplasm (6 sources) Benign neoplasm of pituitary gland; 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] Onset: 2 Episodic Other circulatory disease (1 source) Personal history of transient ischemic attack (TIA), and cerebral infarction without residual deficits; Translations: [PERS HX TIA AND CI NO RESID DEFICIT] Onset: 3 Episodic Other circulatory disease (3 sources) History of cerebrovascular accident without residual deficits; Translations: [Personal history of transient ischemic attack (TIA), and cerebral infarction without residual deficits] Episodic Other endocrine disorders (3 sources) Hyperprolactinemia; Translations: [Hyperprolactinemia] 03-13-2024 Chronic Other endocrine disorders (2 sources) Hyperprolactinemia; 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] 08-06-2024 Chronic Other eye disorders (2 sources) Disorder of optic nerve; 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 Other gastrointestinal disorders (5 sources) Dysphagia, unspecified; Translations: [Dysphagia, unspecified] Onset: 3 Episodic Other gastrointestinal disorders (1 source) Dysphagia; Translations: [Dysphagia, unspecified] 08-06-2024 Episodic Other lower respiratory disease (5 sources) Dyspnea on exertion; Translations: [Other forms [...] (1 source) Unsteadiness on feet Episodic Other non-traumatic joint disorders (1 source) Pain in left knee; Translations: [Pain in joint, lower leg] 08-13-2024 Episodic Other screening for suspected conditions (not mental disorders or infectious disease) (8 sources) Elevated prostate specific antigen [PSA]; Translations: [Encounter for screening for malignant neoplasm of prostate] Onset: 2 Episodic Other upper respiratory disease (2 sources) Vasomotor rhinitis; Translations: [Vasomotor rhinitis] 03-16-2024 Chronic Retinal detachments; defects; vascular occlusion; and retinopathy (20 sources) 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; Translations: [Exudative age-related macular degeneration, left eye, with active choroidal neovascularization] Onset: 1 10-03-2020 Chronic Retinal detachments; defects; vascular occlusion; and retinopathy (3 sources) Serous retinal detachment; Translations: [Serous retinal detachment, left eye] Episodic Screening and history of mental health and substance abuse codes (1 source) Personal history of nicotine dependence; Translations: [PERSONAL HISTORY OF NICOTINE DEPEND] Onset: 3 Episodic Substance-related disorders (11 sources) Tobacco dependence in remission; Translations: [Nicotine dependence, cigarettes, in remission] Chronic Unclassified (3 sources) LOW BACK PAIN, UNSPECIFIED; Translations: [LOW BACK PAIN, UNSPECIFIED] Onset: 3 Urinary tract infections (1 source) Cystitis, unspecified without hematuria; Translations: [CYSTITIS UNS WITHOUT HEMATURIA] Onset: 3 Episodic Past or Other Problems Problem Classification [...] (chief complaint) Onset: 11-28-2021 Resolved: 01-27-2024 Unclassified (20 sources) Exudative ARMD (chief complaint) Onset: 2022 Resolved: 11-06-2023 Unclassified (4 sources) Follow Up of AMD (chief complaint) Onset: 02-05-2023 Unclassified (20 sources) macular degeneration followup (chief complaint) Onset: 08-02-2020 Resolved: 07-17-2022 Unclassified (4 sources) injection of Avastin (chief complaint) Onset: 03-28-2022 Unclassified (4 sources) possible Avastin intravitreal injection (chief complaint) Onset: 02-20-2022 Unclassified (4 sources) IO-Eylea OU AMD (chief complaint) Onset: 08-22-2021 Unclassified (4 sources) vision changes (chief complaint) Onset: 07-25-2021 Unclassified (8 sources) AMD (chief complaint) stable vision (chief complaint) Onset: 01-18-2020 Resolved: 06-20-2021 Unclassified (4 sources) AMD (chief complaint) no changes (chief complaint) blurry vision (chief complaint) Onset: 02-14-2021 Unclassified (4 sources) 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 (chief complaint) Onset: 12-13-2020 Unclassified (4 sources) Wet AMD (chief complaint) decreased vision (chief complaint) Onset: 10-03-2020 Unclassified (8 sources) AMD (chief complaint) decreased vision (chief complaint) Onset: 12-07-2019 Resolved: 07-05-2020 Unclassified (4 sources) macular degeneration followup (chief complaint) decreased vision (chief complaint) Onset: 05-16-2020 Unclassified (4 sources) AMD (chief complaint) occasional red flash (chief complaint) Onset: 03-28-2020 Unclassified (4 sources) macular degeneration (chief complaint) decrease in vision (chief complaint) Onset: 10-27-2019 Unclassified (4 sources) macular degeneration (chief complaint) dark vision (like behind a thick cloud) (chief complaint) Onset: 08-16-2019 Unclassified (3 sources) macular degeneratio (chief complaint) Onset: 05-18-2024 Results Test Name Value Interpretation Reference Range Facility Lab Reportson 09-18-2022 Lab Reports [id number] .00CD:127 Normal [facility] Lab Reports [id number] .00CD:127 Normal [facility] Lab Reports [id number] .00CD:127 Normal [facility] RAD - CT Reporton 09-18-2022 RAD - CT Report [id number] .00CD:127 Normal [facility] CBC AUTO DIFFon 08-21-2022 BASO # 0.1 103/ul Normal 0.0-0.1 [facility] Comment on above: Performed By: #### C BC ####[facility] [address] [place], [place] [address]Dr. Howie Sanford Basophils/100 WBC (Bld) 0.8 % Normal 0.2-2.0 [facility] Comment on above: Performed By: #### C BC ####[facility] [address] [address]Dr. Howie Sanford EO # 0.1 103/ul Normal 0.0-0.7 [facility] Comment on above: Performed By: #### C BC ####[facility] [address] [place], [place] [address]Dr. Howie Sanford Eosinophils/100 WBC (Bld) 1.8 % Normal 0.9-7.0 [facility] Comment on above: Performed By: #### C BC ####[facility] [address] [place] [address]Dr. Howie Sanford Erythrocyte distribution width (RBC) [Ratio] 13.1 % Normal 11.0-15.0 [facility] Comment on above: Performed By: #### C BC ####[facility] [address] [place] [address]Dr. Howie Sanford Hematocrit (Bld) [Volume fraction] 46.9 % Normal 42.0-54.0 [facility] Comment on above: Performed By: #### C BC ####[facility] [address] [place], [place] [address]Dr. Howie Sanford Hemoglobin (Bld) [Mass/Vol] 15.6 g/dL Normal 14.0-18.0 [facility] Comment on above: Performed By: #### C BC ####[facility] [address] [place], [place] [address]Dr. Howie Sanford IG # 0.01 10e3/ul Normal 0.00-0.03 [facility] Comment on above: Performed By: #### C BC ####[facility] [address] [place], [place] [address]Dr. Howie Sanford IG % 0.2 % Normal 0.0-0.5 [facility] Comment on above: Performed By: #### C BC ####[facility] [address] [place], [place] [address]Dr. Howie Sanford LYMPH # 0.8 103/ul Critically low 1.2-3.8 The [facility] Comment on above: Performed By: #### C BC ####[facility] V[address] [place], [place] [address]Dr. Howie Sanford Lymphocytes/100 WBC (Bld) 14.0 % Critically low 20.5-60.0 [facility] Comment on above: Performed By: #### C BC ####[facility] [address] [place], [place] [address]Dr. Howie Sanford MANUAL DIFF REQ NO Normal [facility] Comment on above: Performed By: #### C BC ####[facility] [address] [place] [id number]. Howie Juvenal MCH (RBC) [Entitic mass] 30.6 pg Normal 25.9-34.0 [facility] Comment on above: Performed By: #### C BC ####[facility] [address] [place] [id number]. Howie Juvenal MCHC (RBC) [Mass/Vol] 33.3 g/dL Normal 29.9-35.2 [facility] Comment on above: Performed By: #### C BC ####[facility] [address] [place] [id number]. Howie Juvenal MCV (RBC) [Entitic vol] 92.1 fL Normal 80.0-94.0 [facility] Comment on above: Performed By: #### C BC ####[facility] Em[address] [place], [place] [address]Dr. Howie Sanford MONO # 0.5 103/ul Normal 0.3-0.8 [facility] Comment on above: Performed By: #### C BC ####[facility] [address] [place] [address]Dr. Marleenjose Sanford Monocytes/100 WBC (Bld) 7.7 % Normal 1.7-12.0 [facility] Comment on above: Performed By: #### C BC ####[facility] [address] [place], [place] [address]Dr. Howie Sanford NEUT # 4.5 103/ul Normal 1.4-6.5 [facility] Comment on above: Performed By: #### C BC ####[facility] [address] [place], [place] [id number]. Howie Sanford Neutrophils/100 WBC (Bld) 75.5 % Critically high 43.0-75.0 The [facility] Comment on above: Performed By: #### C BC ####[facility] [address] [place], [place] [address]Dr. Howie Sanford Platelet mean volume (Bld) [Entitic vol] 11.4 fL Normal 9.5-13.5 [facility] Comment on above: Performed By: #### C BC ####[facility] [address] [place], [place] [address]Yp. Howie Sanford PLT 203 103/ul Normal 150-450 [facility] Comment on above: Performed By: #### C BC ####[facility] [address] [place], [place] [address]Gq. Howie Sanford RBC 5.09 106/ul Normal 4.70-6.10 [facility] Comment on above: Performed By: #### C BC ####[facility] [address] [place], [place] [address]Ta. Howie Sanford WBC 6.0 103/ul Normal 4.0-11.0 [facility] Comment on above: Performed By: #### C BC ####[facility] [address] [place], [place] [address]Nz. How[address] CT ABD/PELVIS WO CONon 08-21 CT ABD/PELVIS [...] MARIELOS CAMPOS Date: 2022-08-21 13:31 Normal [facility] CULTURE URINEon 08-21-2022 CULTURE URINE Culture Observations : NO GROWTH. Normal [facility] Comment on above: Performed By: #### U RCX #### [facility] Laboratory [address] [address] [address] Howie Sanford ER URINE PROFILEon 3 Bilirubin Ql (U) Negative Normal NEGATIVE [facility] Comment on above: Performed By: #### U MICRO, ERUR #### [facility] [address] [address] [address] Howie Sanford Clarity (U) CLEAR Normal CLEAR [facility] Comment on above: Performed By: #### U MICRO, ERUR #### [facility] [address] [address] [address] Howie Sanford Color (U) LT. YELLOW Normal YELLOW [facility] Comment on above: Performed By: #### U MICRO, ERUR #### [facility] [address] [place] [address] Dr. Howie GAMBLED A micrscopic examination will be performed if indicated. Normal [facility] Comment on above: Performed By: #### U MICRO, ERUR #### [facility] [address] [address] [address] Howie Sanford Glucose Ql (U) Negative Normal NEGATIVE [facility] Comment on above: Performed By: #### U MICRO, ERUR #### [facility] [address] [address] [address] Howie Sanford Hemoglobin Ql (U) Negative Normal NEGATIVE [facility] Comment on above: Performed By: #### U MICRO, ERUR #### [facility] [address] [address] [address] Howie Sanford Ketones Ql (U) Negative Normal NEGATIVE [facility] Comment on above: Performed By: #### U MICRO, ERUR #### [facility] [address] [address] [address] Howie Sanford LEUKOCYTES Negative Normal NEGATIVE [facility] Comment on above: Performed By: #### U MICRO, ERUR #### [facility] [address] [address] [address] Howie Sanford Nitrite Ql (U) Negative Normal NEGATIVE [facility] Comment on above: Performed By: #### U MICRO, ERUR #### [facility] [address] [address] [address] Howie Sanford pH (U) 5.5 [pH] Normal 5-9 [facility] Comment on above: Performed By: #### U MICRO, ERUR #### [facility] [address] [address] [address] Howie Sanford Protein (U) [Mass/Vol] 100 mg/dL Abnormal NEGATIVE/ TRACE [facility] Comment on above: Performed By: #### U MICRO, ERUR #### [facility] [address] [address] [address] Howie Sanford SPEC GRAVITY >=1.030 Abnormal 1.005-<=1.025 [facility] Comment on above: Performed By: #### U MICRO, ERUR #### [facility] [address] [address] [address] Howie Sanford UR MICRO IND INDICATED Normal [facility] Comment on above: Performed By: #### U MICRO, ERUR #### [facility] [address] [address] [address] Howie Sanford Urobilinogen Qn (U) 0.2 {Adolfo'U}/dL Normal 0.2 - 1. 0 [facility] Comment on above: Performed By: #### U MICRO, ERUR #### [facility] [address] [address] [address] Howie Sanford PROF 14(COMP METB)on 023 Albumin [Mass/Vol] 4.2 g/dL Normal 3.4-5.0 [facility] Comment on above: Performed By: #### C MP ####[facility] [address] [place] [address]Dr. Howie Sanford Albumin/Globulin [Mass ratio] 1.2 {ratio} Normal [facility] Comment on above: Performed By: #### C MP ####[facility] [address] [place] [address]Dr. Howie Sanford ALP [Catalytic activity/Vol] 99 U/L Normal 46-116 [facility] Comment on above: Performed By: #### C MP ####[facility] [address] [place] [address]Dr. Howie Sanford ALT [Catalytic activity/Vol] 23 U/L Normal 16-63 [facility] Comment on above: Performed By: #### C MP ####[facility] [address] [place] [id number]. Howie Sanford Anion gap [Moles/Vol] 8.9 mmol/L Normal [facility] Comment on above: Performed By: #### C MP ####[facility] [address] [place], [place] [address]Dr. Howie Sanford AST [Catalytic activity/Vol] 16 U/L Normal 15-37 [facility] Comment on above: Performed By: #### C MP ####[facility] [address] [place], [place] [address]Dr. Howie Sanford Bilirubin [Mass/Vol] 0.5 mg/dL Normal 0.2-1.0 [facility] Comment on above: Performed By: #### C MP ####[facility] [address] [place], [place] [address]Dr. Howie Sanford Calcium [Mass/Vol] 9.2 mg/dL Normal 8.5-10.1 [facility] Comment on above: Performed By: #### C MP ####[facility] [address] [place] [address]Dr. Howie Sanford Chloride [Moles/Vol] 104 mmol/L Normal 98-107 [facility] Comment on above: Performed By: #### C MP ####[facility] [address] [place] [id number]. Howie Sanford CO2 [Moles/Vol] 28.3 mmol/L Normal 21.0-32.0 [facility] [place] [facility] Comment on above: Performed By: #### C MP ####[facility] [address] [place] [id number]. Howie Sanford Creatinine [Mass/Vol] 0.90 mg/dL Normal 0.70-1.30 [facility] Comment on above: Performed By: #### C MP ####[facility] [address] [place] [address]Dr. Howie Sanford EGFR-AF BELIZEAN >60 Normal >=60 [facility] [place] [facility] Comment on above: Performed By: #### C MP ####[facility] [address] [place] [address]Dr. Howie Sanford EGFR-NON AF BELIZEAN >60 Normal >=60 [facility] Comment on above: Performed By: #### C MP ####[facility] [address] [place] [address]Dr. Howie Sanford Globulin (S) [Mass/Vol] 3.6 g/dL Normal [facility] Comment on above: Performed By: #### C MP ####[facility] [address] [place], [place] [address]Dr. Howie Sanford Glucose [Mass/Vol] 105 mg/dL Normal 74-106 [facility] Comment on above: Performed By: #### C MP ####[facility] [id number] [address]Dr. Howie Sanford Potassium [Moles/Vol] 4.2 mmol/L Normal 3.5-5.1 The [facility] Comment on above: Performed By: #### C MP ####[facility] [id number] [address]Dr. Howie Sanford Protein [Mass/Vol] 7.8 g/dL Normal 6.4-8.2 [facility] Comment on above: Performed By: #### C MP ####[facility] [id number] [address]Dr. Howie Sanford Sodium [Moles/Vol] 137 mmol/L Normal 136-145 The [facility] Comment on above: Performed By: #### C MP ####[facility] [id number] [place], [place] [address]Dr. Howie Sanford Urea nitrogen [Mass/Vol] 17.0 mg/dL Normal 7.0-18.0 The [facility] Comment on above: Performed By: #### C MP ####[facility] [id number] [id number]. Howie Sanford Urea nitrogen/Creatinine [Mass ratio] 18.9 mg/mg Normal The [facility] Comment on above: Performed By: #### C MP ####[facility] [id number] [id number]. Howie Sanford URINE MICROSCOPIC ONLYon BACTERIA SMALL Abnormal NONE SEEN The [facility] Comment on above: Performed By: #### U MICRO, ERUR #### [facility] Laboratory [address] [address] [address] Howie Sanford Bacteria identified Cx Nom (U) INDICATED Normal The [facility] Comment on above: Result Comment: Prev iously reported as: NOT INDICATED On 08/21/2022 15:20 By DM9 Performed By: #### U MICRO, ERUR #### [facility] Laboratory [address] [place] [address] Dr. Howie Sanford CAST NONE SEEN Normal NONE SEEN [facility] Comment on above: Performed By: #### U MICRO, ERUR #### [facility] Laboratory [address] [place] [address] Dr. Howie Sanford Crystals LM Nom (Urine sed) NONE SEEN Normal NONE SEEN [facility] Comment on above: Performed By: #### U MICRO, ERUR #### [facility] Laboratory [address] [place] [address] Dr. Howie Sanford Epithelial cells LM Ql (Urine sed) RARE Normal NONE SEEN /RARE The [facility] Comment on above: Performed By: #### U MICRO, ERUR #### [facility] [address] [address] [address] Howie Sanford MUCOUS TRACE Abnormal NONE SEEN The [facility] Comment on above: Performed By: #### U MICRO, ERUR #### [facility] [address] [place] [address] Dr. Howie Sanford RBC 2-5 Abnormal 0-2 The [facility] Comment on above: Performed By: #### U MICRO, ERUR #### [facility] [address] [place] [address] Dr. Howie Sanford SPERMATOZOA, UR PRESENT Abnormal The [facility] Comment on above: Performed By: #### U MICRO, ERUR #### [facility] [id number] Howie Sanford WBC 5-10 Abnormal NONE SEEN The [facility] Comment on above: Performed By: #### U MICRO, ERUR #### [facility] Laboratory [id number] Howie Sanford PSA, FREE AND TOTAL RATIOon 08-17-2022 % Free PSA 34.2 % Normal The [facility] Comment on above: Result Comment: The table [...] of men. Performed By: #### P SAFREE ####[facility] [id number] [id number] Sanford Prostate specific Ag [Mass/Vol] 3.3 ng/mL Normal 0.0-4.0 [facility] Comment on above: Result Comment: Santosh RITTER methodology. . According to the [employer] [employer], Serum PSA should decrease and [...] malignant disease. Performed By: #### P SAFREE ####[facility] [id number] [place], [place] [address]UuDr. Howie Sanford PSA, Free 1.13 ng/mL Normal N/A [facility] Comment on above: Result Comment: Santosh RITTER methodology. Performed By: #### P SAFREE ####[facility] [id number] [address]Dr. Howie Sanford PROLACTINon 05-18-2022 Prolactin 16.4 ng/mL Critically high 4.0-15.2 [facility] Comment on above: Performed By: #### P ROLAC #### [facility] [address] [address] [address] Howie Sanford CBC AUTO DIFFon 05-17-2022 BASO # 0.0 103/ul Normal 0.0-0.1 [facility] Comment on above: Performed By: #### C BC #### [facility] [address] [place] [address] Dr. Howie Sanford Basophils/100 WBC (Bld) 0.6 % Normal 0.2-2.0 [facility] Comment on above: Performed By: #### C BC #### [facility] [address] [place] [address] Dr. Howie Sanford EO # 0.1 103/ul Normal 0.0-0.7 [facility] Comment on above: Performed By: #### C BC #### [facility] [address] [place] [address] Dr. Howie Sanford Eosinophils/100 WBC (Bld) 2.0 % Normal 0.9-7.0 [facility] Comment on above: Performed By: #### C BC #### [facility] [address] [address] [address] Howie Sanford Erythrocyte distribution width (RBC) [Ratio] 12.6 % Normal 11.0-15.0 [facility] Comment on above: Performed By: #### C BC #### [facility] [address] [place] [address] Dr. Howie Sanfrod Hematocrit (Bld) [Volume fraction] 43.5 % Normal 42.0-54.0 [facility] Comment on above: Performed By: #### C BC #### [facility] [address] [place] [address] Dr. Howie Sanford Hemoglobin (Bld) [Mass/Vol] 14.3 g/dL Normal 14.0-18.0 [facility] Comment on above: Performed By: #### C BC #### [facility] [address] [place] [address] Dr. Howie Sanford IG # 0.02 10e3/ul Normal 0.00-0.03 [facility] Comment on above: Performed By: #### C BC #### [facility] [address] [place] [address] Dr. Howie Sanford IG % 0.4 % Normal 0.0-0.5 [facility] Comment on above: Performed By: #### C BC #### [facility] [address] [place] [address] Dr. Howie Sanford LYMPH # 1.0 103/ul Critically low 1.2-3.8 [facility] Comment on above: Performed By: #### C BC #### [facility] [address] [place] [address] Dr. Howie Sanford Lymphocytes/100 WBC (Bld) 20.1 % Critically low 20.5-60.0 [facility] Comment on above: Performed By: #### C BC #### [facility] [address] [place] [address] Dr. Howie Sanford MANUAL DIFF REQ NO Normal [facility] Comment on above: Performed By: #### C BC #### [facility] [address] [place] [address] Dr. Howie Sanford MCH (RBC) [Entitic mass] 30.4 pg Normal 25.9-34.0 [facility] Comment on above: Performed By: #### C BC #### [facility] [address] [place] [address] Dr. Howie Sanford MCHC (RBC) [Mass/Vol] 32.9 g/dL Normal 29.9-35.2 [facility] Comment on above: Performed By: #### C BC #### [facility] [address] [place] [address] Dr. Howie Sanford MCV (RBC) [Entitic vol] 92.6 fL Normal 80.0-94.0 [facility] Comment on above: Performed By: #### C BC #### [facility] [address] [place] [address] Dr. Howie Sanford MONO # 0.4 103/ul Normal 0.3-0.8 [facility] Comment on above: Performed By: #### C BC #### [facility] [address] [place] [address] Dr. Howie Sanford Monocytes/100 WBC (Bld) 8.1 % Normal 1.7-12.0 [facility] Comment on above: Performed By: #### C BC #### [facility] [address] [place] [address] Dr. Howie Sanford NEUT # 3.4 103/ul Normal 1.4-6.5 [facility] Comment on above: Performed By: #### C BC #### [facility] [address] [place] [address] Dr. Howie Sanford Neutrophils/100 WBC (Bld) 68.8 % Normal 43.0-75.0 [facility] Comment on above: Performed By: #### C BC #### [facility] [address] [place] [address] Dr. Howie Sanford Platelet mean volume (Bld) [Entitic vol] 11.0 fL Normal 9.5-13.5 [facility] Comment on above: Performed By: #### C BC #### [facility] [address] [place] [address] Dr. Howie Sanford PLT 213 103/ul Normal 150-450 The [facility] Comment on above: Performed By: #### C BC #### [facility] [address] [place] [address] Dr. Howie Sanford RBC 4.70 106/ul Normal 4.70-6.10 The [facility] Comment on above: Performed By: #### C BC #### [facility] [address] [place] [address] Dr. Howie Sanford WBC 4.9 103/ul Normal 4.0-11.0 The [facility] Comment on above: Performed By: #### C BC #### [facility] [address] [address] [address] Howie Sanford GLYCOHEMOGLOBIN A1Con 2021 ADA RECOMMENDATION SEE BELOW Normal [facility] Comment on above: Result Comment: ADA RECOMMENDED LIMIT 4.0 - 6.0 ADA THERAPEUTIC TARGET < 7.0 ACTION SUGGESTED > 7.0 Performed By: #### A 1C ####[facility] [id number] [address]Dr. Howie Sanford Glucose [Mass/Vol] 140 mg/dL Normal [facility] Comment on above: Performed By: #### A 1C ####[facility] [id number] [address]Dr. Howie Sanford HbA1c (Bld) [Mass fraction] 6.5 % Critically high 4.5-6.2 [facility] Comment on above: Performed By: #### A 1C ####[facility] [id number] [address]Dr. Howie Sanford LIPID PROFILEon 05-17-2022 CHOL-HDL RATIO NORM SEE BELOW Normal [facility] Comment on above: Result Comment: 3.3 - 4.4 LOW RISK 4.4 - 7.1 AVERAGE RISK 7.1 - 11.0 MODERATE RISK >11.0 HIGH RISK Performed By: #### B MP, ALT, LIPID #### [facility] [address] [address] [address] Howie Sanford Cholesterol [Mass/Vol] 140 mg/dL Normal <=200 [facility] Comment on above: Performed By: #### B MP, ALT, LIPID #### [facility] [address] [address] [address] Howie Sanford Cholesterol in HDL [Mass/Vol] 41 mg/dL Normal 40-60 [facility] Comment on above: Performed By: #### B MP, ALT, LIPID #### [facility] [address] [address] [address] Howie Sanford Cholesterol in LDL [Mass/Vol] 80.4 mg/dL Normal [facility] Comment on above: Performed By: #### B MP, ALT, LIPID #### [facility] [address] [address] [address] Howie Sanford Cholesterol.total/Cho lesterol in HDL [Mass ratio] 3.4 {ratio} Normal [facility] Comment on above: Performed By: #### B MP, ALT, LIPID #### [facility] [address] [address] [address] Howie Sanford HDL NORMAL > or = 60 mg/dl - LO W CARDIOVASCULAR RISK <40 mg/dl - HIGH CARDIOVASCULAR RISK Normal [facility] Comment on above: Performed By: #### B MP, ALT, LIPID #### [facility] [address] [address] [address] Howie Sanford LDL CALC NORMAL SEE BELOW Normal [facility] Comment on above: Result Comment: <100 mg/dl OPTIMAL 100 - 129 mg/dl NEAR OR ABOVE OPTIMAL 130 - 159 mg/dl BORDERLINE HIGH 160 - 189 mg/dl HIGH >190 mg/dl VERY HIGH Performed By: #### B MP, ALT, LIPID #### [facility] [address] [place] [address] Dr. Howie Sanford Triglyceride [Mass/Vol] 93 mg/dL Normal <=150 [facility] Comment on above: Performed By: #### B MP, ALT, LIPID #### [facility] [address] [place] [address] Dr. Howie Sanford VLDL CALC 18.6 mg/dL Normal [facility] Comment on above: Performed By: #### B MP, ALT, LIPID #### [facility] [address] [address] [address] Howie Sanford MICROALBUMIN, RAND URon 12-0 mALB <1.3 Normal <=30.0 [facility] Comment on above: Performed By: #### M ALBR #### [facility] [address] [place] [address] Dr. Howie Sanford PROF CHEM 8 (BAS METB)on Anion gap [Moles/Vol] 11.5 mmol/L Normal [facility] Comment on above: Performed By: #### B MP, ALT, LIPID #### [facility] [address] [address] [address] Howie Sanford Calcium [Mass/Vol] 8.9 mg/dL Normal 8.5-10.1 [facility] Comment on above: Performed By: #### B MP, ALT, LIPID #### [facility] [address] [address] [address] Howie Sanford Chloride [Moles/Vol] 105 mmol/L Normal 98-107 [facility] Comment on above: Performed By: #### B MP, ALT, LIPID #### [facility] [address] [address] [address] Howie Sanford CO2 [Moles/Vol] 30.7 mmol/L Normal 21.0-32.0 [facility] Comment on above: Performed By: #### B MP, ALT, LIPID #### [facility] [address] [place] [address] Dr. Howie Sanford Creatinine [Mass/Vol] 0.96 mg/dL Normal 0.70-1.30 [facility] Comment on above: Performed By: #### B MP, ALT, LIPID #### [facility] [address] [place] [address] Dr. Howie Sanford EGFR-AF BELIZEAN >60 Normal >=60 [facility] Comment on above: Performed By: #### B MP, ALT, LIPID #### [facility] [address] [place] [address] Dr. Howie Sanford EGFR-NON AF BELIZEAN >60 Normal >=60 [facility] Comment on above: Performed By: #### B MP, ALT, LIPID #### [facility] [address] [place] [address] Dr. Howie Sanford Glucose [Mass/Vol] 115 mg/dL Critically high 74-106 [facility] Comment on above: Performed By: #### B MP, ALT, LIPID #### [facility] [address] [place] [address] Dr. Howie Sanford Potassium [Moles/Vol] 4.2 mmol/L Normal 3.5-5.1 [facility] Comment on above: Performed By: #### B MP, ALT, LIPID #### [facility] [address] [address] [address] Howie Sanford Sodium [Moles/Vol] 143 mmol/L Normal 136-145 [facility] Comment on above: Performed By: #### B MP, ALT, LIPID #### [facility] [address] [place] [address] Dr. Howie Sanford Urea nitrogen [Mass/Vol] 16.0 mg/dL Normal 7.0-18.0 [facility] Comment on above: Performed By: #### B MP, ALT, LIPID #### [facility] [address] [place] [address] Dr. Howie Sanford Urea nitrogen/Creatinine [Mass ratio] 16.7 mg/mg Normal [facility] Comment on above: Performed By: #### B MP, ALT, LIPID #### [facility] [address] [place] [address] Dr. Howie Sanford [facility] 05-17-2022 ALT [Catalytic activity/Vol] 25 U/L Normal 16-63 [facility] Comment on above: Performed By: #### B MP, ALT, LIPID #### [facility] [address] [place] [address] Dr. Howie Sanford XR MODIFIED BARIUM SWALLOWon [...] by: ELIS LAZO Date: 2022-05-15 15:55 Normal [facility] Vital Signs Date Time Vital Sign Value Performing Clinician Facility 08-13-2024 11:05-0500 Body height 175.26 cm [facility] 08-13-2024 11:05-0500 Body mass index (BMI) [Ratio] 30.8 kg/m2 [facility] 08-13-2024 11:05-0500 Body weight 94.8 kg [facility] 08-13-2024 11:05-0500 Diastolic blood pressure 65 mm[Hg] [facility] 08-13-2024 11:05-0500 Heart rate 93 /min [facility] 08-13-2024 11:05-0500 Respiratory rate 12 /min [facility] 08-13-2024 11:05-0500 Systolic blood pressure 131 mm[Hg] [facility] 08-06-2024 10:34-0500 Body height 175.26 cm [facility] 08-06-2024 10:34-0500 Body mass index (BMI) [Ratio] 30.9 kg/m2 [facility] 08-06-2024 10:34-0500 Body weight 94.91 kg [facility] 08-06-2024 10:34-0500 Diastolic blood pressure 65 mm[Hg] [facility] 08-06-2024 10:34-0500 Heart rate 90 /min [facility] 08-06-2024 10:34-0500 Respiratory rate 12 /min [facility] 08-06-2024 10:34-0500 SaO2% (BldA) [Mass fraction] 95 % [facility] 08-06-2024 10:34-0500 Systolic blood pressure 132 mm[Hg] [facility] 08-03-2024 12:14-0500 Diastolic blood pressure 67 mm[Hg] Jay Peralta MD [facility] 08-03-2024 12:14-0500 Systolic blood pressure 132 mm[Hg] Jay Prealta MD [facility] 03-16-2024 11:35-0400 Body height 175.26 cm [facility] 03-16-2024 11:35-0400 Body mass index (BMI) [Ratio] 30.7 kg/m2 [facility] 03-16-2024 11:35-0400 Body weight 94.51 kg [facility] 03-16-2024 11:35-0400 Diastolic blood pressure 66 mm[Hg] [facility] 03-16-2024 11:35-0400 Heart rate 84 /min [facility] 03-16-2024 11:35-0400 Respiratory rate 12 /min [facility] 03-16-2024 11:35-0400 Systolic blood pressure 136 mm[Hg] [facility] 01-27-2024 14:39-0400 Diastolic blood pressure 74 mm[Hg] Jay Peralta MD [facility] 01-27-2024 14:39-0400 Systolic blood pressure 130 mm[Hg] Jay Peralta MD [facility] 10-03-2023 09:50-0400 Body height 175.26 cm [facility] 10-03-2023 09:50-0400 Body mass index (BMI) [Ratio] 30.4 kg/m2 [facility] 10-03-2023 09:50-0400 Body weight 93.66 kg [facility] 10-03-2023 09:50-0400 Diastolic blood pressure 70 mm[Hg] [facility] 10-03-2023 09:50-0400 Heart rate 80 /min [facility] 10-03-2023 09:50-0400 Systolic blood pressure 149 mm[Hg] [facility] 02-27-2023 10:15-0400 Body height 175.26 cm Abdiaziz Ball Other [employer] [facility] [employer] Other 02-27-2023 10:15-0400 Body mass index (BMI) [Ratio] 30.54 kg/m2 Abdiaziz Ball Other [employer] Other 02-27-2023 10:15-0400 Body weight 93.8 kg Abdiaziz Ball Other [employer] [facility] [employer] Other 02-27-2023 10:15-0400 Diastolic blood pressure 59 mm[Hg] Abdiaziz Ball Other [employer] Other 02-27-2023 10:15-0400 Respiratory rate 12 /min Abdiaziz Ball Other [employer] Other 02-27-2023 10:15-0400 Systolic blood pressure 127 mm[Hg] Abdiaziz Ball Other [employer] Other 12-02-2022 13:45-0400 Body height 175.26 cm Abdiaziz Ball Other [employer] Other 12-02-2022 13:45-0400 Body mass index (BMI) [Ratio] 30.62 kg/m2 Abdiaziz Ball Other [employer] Other 12-02-2022 13:45-0400 Body weight 94.08 kg Abdiaziz Ball Other [employer] Other 12-02-2022 13:45-0400 Diastolic blood pressure 61 mm[Hg] Abdiaziz Ball Other [employer] Other 12-02-2022 13:45-0400 Respiratory rate 12 /min Abdiaizz Ball Other [employer] Other 12-02-2022 13:45-0400 Systolic blood pressure 133 mm[Hg] Abdiaziz Ball Other [employer] Other Encounters Encounter Date Encounter Type Care Provider Facility Start: 08-23-2024 ambulatory [facility] Start: 08-18-2024 ambulatory [facility] Start: 08-13-2024 End: 08-13-2024 ambulatory [facility] Work Phone: Start: 08-13-2024 End: 08-13-2024 Patient encounter procedure [facility] Physician [facility] Work Phone: Start: 08-06-2024 End: 08-06-[address] [facility] Work Phone: Start: 08-06-2024 End: 08-06-2024 Patient encounter procedure [facility] Physician [facility] Work Phone: Start: 08-04-2024 End: 08-04-2024 Doctor Corporate Work Phone: [facility] [place] Start: 08-04-2024 ambulatory Doctor [facility] Start: 08-03-2024 End: 08-03-2024 Office outpatient visit 15 minutes Jay Al Shweiki Work Phone: [facility] Start: 08-03-2024 ambulatory Jay Al Shweiki [facility] Start: 08-02-2024 ambulatory Jay Al Shweiki [facility] Start: 06-29-2024 End: 06-29-2024 Jay Al Shweiki Work Phone: [facility] Start: 06-29-2024 ambulatory Jay Al Shweiki [facility] Start: 05-18-2024 End: 05-18-2024 Jay Al Shweiki Work Phone: [facility] [place] Start: 05-18-2024 ambulatory Jay Al Shweiki [facility] Start: 04-06-2024 End: 04-06-2024 Jay Al Shweiki Work Phone: [facility] [place] Start: 04-06-2024 ambulatory Jay Al Shweiki [facility] Start: 03-16-2024 End: 03-16-[address] [facility] Work Phone: Start: 03-16-2024 End: 03-16-2024 Patient encounter procedure [facility] Physician [facility] Work Phone: Start: 03-13-2024 Patient encounter procedure [facility] Start: 03-12-2024 Non-patient / Non-visit [facility] Work Phone: Start: 01-27-2024 End: 01-27-2024 Jay Toro Micheline Work Phone: [facility] Start: 01-27-2024 ambulatory Jay Peralta [facility] Start: 11-06-2023 End: 11-06-2023 May El Rashedy Work Phone: [facility] Start: 10-10-2023 End: 10-10-2023 ambulatory ABDIAZIZ MURPHY [facility] Start: 10-09-2023 End: 10-09-2023 ambulatory ABDIAZIZ Chinchilla [facility] Start: 10-03-2023 End: 10-03-[address] [facility] Work Phone: Start: 10-03-2023 End: 10-03-2023 Patient encounter procedure [facility] Physician [facility] Work Phone: Start: 09-11-2023 End: 09-11-2023 May El Rashedy Work Phone: [facility] [place] Start: 08-19-2023 Non-patient / Non-visit [facility] Work Phone: Start: 07-17-2023 End: 07-17-2023 May El Rashedy Work Phone: [facility] Start: 07-09-2023 End: 07-09-2023 ambulatory Abdiaziz Arrington Other [facility] Other Start: 07-09-2023 Telephone encounter Abdiaziz Arrington [facility] Start: 06-04-2023 End: 06-04-2023 May El Rashedy Work Phone: [facility] Start: 04-30-2023 End: 04-30-2023 Ivonne Cardoso Alkaliby Work Phone: [facility] [place] Start: 04-02-2023 End: 04-02-2023 Ahmed M Alkaliby Work Phone: [facility] [place] Start: 03-05-2023 End: 03-05-2023 Ahmed M Alkaliby Work Phone: [facility] [place] Start: 02-27-2023 End: 02-27-2023 ambulatory Abdiaziz Arrington Other [employer] Other Start: 02-27-2023 Office outpatient visit 25 minutes Abdiaziz Ball [facility] Start: 02-05-2023 End: 02-05-2023 Office outpatient visit 25 minutes Ivonne Cardoso Alkaliby Work Phone: [facility] [place] Start: 01-02-2023 End: 01-02-2023 Ameya Allred Work Phone: [facility] Start: 12-02-2022 End: 12-02-2022 ambulatory Abdiaziz Arrington Other [employer] Other Start: 12-02-2022 Office outpatient visit 25 minutes Abdiaziz Murphy [facility] Start: 11-28-2022 End: 11-28-2022 Ameya Allred Work Phone: [facility] Start: 10-30-2022 End: 10-30-2022 Office outpatient visit 25 minutes Ivonne Cardoso Alkaliby Work Phone: [facility] [place] Start: 09-18-2022 End: 09-18-2022 Ahmed M Alkaliby Work Phone: [facility] Start: 09-18-2022 End: 09-19-2022 ambulatory Mikhail HOBSON Facility:[facility] Start: 09-18-2022 End: 09-18-2022 Patient encounter procedure Mikhail HOBSON [facility] Start: 08-21-2022 End: 08-21-[address] ABDIAZIZ ARRINGTON Facility:[facility] Start: 08-15-2022 End: 08-16-[address] ABDIAZIZ ARRINGTON Facility:[facility] Start: 08-14-2022 End: 08-14-2022 Ahmed M Alkaliby Work Phone: [facility] Start: 07-17-2022 End: 07-17-2022 Ahmed M Alkaliby Work Phone: [facility] Start: 06-19-2022 End: 06-19-2022 Ahmed M Alkaliby Work Phone: [facility] [place] Start: 06-09-2022 End: 06-10-[address] ABDIAZIZ ARRINGTON Facility:[facility] Start: 05-22-2022 End: 05-22-2022 Ahmed M Alkaliby Work Phone: [facility] Start: 05-20-2022 End: 06-08-[address] ABDIAZIZ ARRINGTON Facility:[facility] Start: 05-17-2022 End: 05-18-[address] ABDIAZIZ ARRINGTON Facility:[facility] Start: 05-15-2022 End: 05-16-[address] ABDIAZIZ ARRINGTON Facility:[facility] Start: 04-24-2022 End: 04-24-2022 Ahmed M Alkaliby Work Phone: [facility] [place] Start: 03-28-2022 End: 03-28-2022 Ahmed M Alkaliby Work Phone: [facility] [place] Start: 02-20-2022 End: 02-20-2022 Ahmed M Alkaliby Work Phone: [facility] Start: 2022 End: 2022 Ahmed M Alkaliby Work Phone: [facility] [place] Start: 12-27-2021 End: 12-28-[address] ABDIAZIZ ARRINGTON Facility:[facility] Start: 11-28-2021 End: 11-28-2021 Office outpatient visit 25 minutes Ahmed M Alkaliby Work Phone: [facility] Start: 10-31-2021 End: 10-31-2021 Ivonne Cardoso Alkaliby Work Phone: [facility] [place] Start: 09-19-2021 End: 09-19-2021 Office outpatient visit 15 minutes Ivonne Cardoso Alkaliby Work Phone: [facility] [place] Start: 08-22-2021 End: 08-22-2021 Ivonne M Alkaliby Work Phone: [facility] [place] Start: 07-25-2021 End: 07-25-2021 Ivonne M Alkaliby Work Phone: [facility] [place] Start: 06-20-2021 End: 06-20-2021 Ivonne Cardoso Alkaliby Work Phone: [facility] Start: 05-09-2021 End: 05-09-2021 Mehrdad Heardbs Work Phone: [facility] Start: 04-04-2021 End: 04-04-2021 Office outpatient visit 25 minutes Mehrdad Britt Work Phone: [facility] [place] Start: 02-14-2021 End: 02-14-2021 Mehrdad Lyon Lorenza Work Phone: [facility] [place] Start: 12-13-2020 End: 12-13-2020 Mehrdad Lyon Lorenza Work Phone: [facility] Start: 11-01-2020 End: 11-01-2020 Office outpatient visit 15 minutes Mehrdad Lyon Lorenza Work Phone: [facility] Start: 10-03-2020 End: 10-03-2020 Office outpatient visit 25 minutes Mehrdad Heardbs Work Phone: [facility] Start: 08-02-2020 End: 08-02-2020 Mehrdad Lyon Lorenza Work Phone: [facility] [place] Start: 07-05-2020 End: 07-05-2020 Mehrdad Britt Work Phone: [facility] [place] Start: 05-16-2020 End: 05-16-2020 Mehrdad Lyon Lorenza Work Phone: [facility] Start: 03-28-2020 End: 03-28-2020 Mehrdad Lyon Lorenza Work Phone: [facility] Start: 01-18-2020 End: 01-18-2020 Mehrdad Lyon Lorenza Work Phone: [facility] [place] Start: 12-07-2019 End: 12-07-2019 Mehrdad Lyon Lorenza Work Phone: [facility] Start: 10-27-2019 End: 10-27-2019 Mehrdad Lyon Lorenza Work Phone: [facility] [place] Start: 08-16-2019 End: 08-16-2019 Office outpatient new 45 minutes Priti Jensen Work Phone: [facility] [place] Start: 09-14-2012 End: 09-14-2012 Mehrdad Heardbs Work Phone: [facility] [place] Start: 08-26-2012 End: 08-26-2012 Office outpatient new 45 minutes Mehrdad Heardbs Work Phone: [facility] [place] Procedures Date Procedure Procedure Detail Performing Clinician Start: 08-03-2024 OCT No Charge Jay Peralta Start: 08-03-2024 End: 08-03-2024 OCT No Charge Uni Or Bi Jay Boyle i, MD Start: 06-29-2024 End: 06-29-2024 Intravitreal njx pharmacologic agt spx Jay Peralta Start: 06-29-2024 Vabysmo Prefilled Syringe Jay Peralta Start: 06-29-2024 End: 06-29-2024 Vabysmo Prefilled Syringe Jay Aguirre MD Start: 05-18-2024 End: 05-18-2024 Computerized ophthalmic imaging [...] Jay Peralta MD Start: 11-06-2023 End: 11-06-2023 Eypeyton Peralta MD Start: 11-06-2023 End: 11-06-2023 Intravitreal njx pharmacologic agt spx Jay Peralta MD Start: 09-11-2023 End: 09-11-2023 Computerized ophthalmic imaging retina Jay Peralta MD Start: 09-11-2023 End: 09-11-2023 Eylejessica Peralta MD Start: 09-11-2023 End: 09-11-2023 Fundus Photos No Charge Bilateral Jay Peralta MD Start: 09-11-2023 End: 09-11-2023 Intravitreal njx pharmacologic agt spx Jay Peralta MD Start: 07-17-2023 End: 07-17-2023 Computerized ophthalmic imaging retina Jay Peralta MD Start: 07-17-2023 End: 07-17-2023 Eypeyton VELAZQUEZ 8MG Jay Peralta MD Start: 07-17-2023 [...] Syringe Jay Sanderson MD Start: 07-17-2022 End: 02-08-2023 Intravitreal njx pharmacologic agt spx Jay Peralta [...] Start: 05-17-[address] WOODARD IN [facility] Comment on above: Performed By: #### P [facility] ####[place] [id number] Sanford Start: 04-24-2022 End: 04-24-2022 Bevacizumab injection [...] Jay Peralta MD Start: 09-14-2012 End: 09-14-2012 AREDS Counseling Jay Peralta MD Start: 09-14-2012 End: 09-14-2012 ARMD Dilated Exam Jay Peralta MD Start: 09-14-2012 End: 09-14-2012 Oph medical xm&eval comprhnsv estab pt 1/> Jay Peralta MD Start: 08-26-2012 End: 08-26-2012 AREDS Counseling Jay Peralta MD Start: 08-26-2012 End: 08-26-2012 ARMD Dilated Exam Jay Peralta MD Start: 08-26-2012 End: 08-26-2012 Fluorescein angrph w/multiframe i&r uni/bi Jay Peralta MD Plan of Treatment Date Care Activity Detail Author Start: 09-07-2024 Jerad Carranza/ 10 Wk DFE OCT VAB OS (1 Of 3) [facility] Work Phone: Start: 06-29-2024 Jerad Carranza 6wk IO Vab OS 3 Of 3 [facility] Work Phone: Start: 04-06-2024 Jerad Carranza/ 10 Wk IO Eyl HD OS OCT [facility] Work Phone: Start: 04-06-2024 Referral to tobacco use cessation counseling program Tobacco cessation counseling [facility] Start: 02-10-2024 Jerad Carranza / 12 Wk FU Eyl HD OS OCT *[place] [facility] Work Phone: Start: 03-05-2023 Smoking [...] lic 2000 panel - Serum or Plasma [facility] MR Brain WO contrast [facility] Immunizations Immunization Date Immunization Notes Care Provider Fa cility 04-29-2022 influenza virus vaccine, split virus (incl. purified surface antigen) Abdiaziz Arrington Other [employer] Other 04-29-2022 influenza virus vaccine, unspecified formulation [facility] 05-07-2021 influenza virus vaccine, split virus (incl. purified surface antigen) Abdiaziz Arrington Other [employer] Other 05-07-2021 influenza virus vaccine, unspecified formulation [facility] 03-15-2021 diphtheria, tetanus toxoids and acellular pertussis vaccine, unspecified formulation Abdiaziz Arrington Other [facility] 03-30-2020 influenza virus vaccine, split virus (incl. purified surface antigen) Abdiaziz Arrington Other [employer] Other 03-30-2020 influenza virus vaccine, unspecified formulation [facility] 03-05-2019 influenza virus vaccine, split virus (incl. purified surface antigen) Abdiaziz Arrington Other [facility] Other 03-05-2019 influenza virus vaccine, unspecified formulation [facility] 03-17-2018 influenza virus vaccine, split virus (incl. purified surface antigen) Abdiaziz Arrington Other [facility] Other 03-17-2018 influenza virus vaccine, unspecified formulation [facility] 03-20-2017 influenza virus vaccine, split virus (incl. purified surface antigen) Abdiaziz Arrington Other [facility] Other 03-20-2017 influenza virus vaccine, unspecified formulation [facility] 05-29-2016 pneumococcal conjuga te vaccine, 13 valent Abdiaziz Arrington Other [facility] 03-19-2016 influenza virus vaccine, split virus (incl. purified surface antigen) Abdiaziz Arrington Other [facility] Other 03-19-2016 influenza virus vaccine, unspecified formulation [facility] 03-09-2013 tetanus and diphther ia toxoids, adsorbed, preservative free, for adult use (5 Lf of tetanus toxoid and 2 Lf of diphtheria toxoid) Abdiaziz Arrington Other [facility] 03-18-2012 pneumococcal polysaccharide vaccine, 23 valent Abdiaziz Arrington Other [facility] Payers Date Payer Category Payer Medicare [id number] 1958 Medicare [id number] 1959 Unknown [id number] 1959 Unknown [id number] 1959 Unknown [id number] 1941 Unknown [id number] 2.16.84 0.1.162501.3.579.2.593 1941 Unknown [id number] 2.16.84 0.1.628330.3.579.2.593 1941 Unknown [id number] 2.16.84 0.1.333145.3.579.2.593 1941 Unknown [id number] 2.16.84 0.1.155702.3.579.2.593 1941 Unknown [id number] 2.16.84 0.1.325963.3.579.2.593 1941 Unknown [id number] 2.16.84 0.1.881127.3.579.2.593 1941 Unknown [id number] 2.16.84 0.1.003045.3.579.2.593 1941 Unknown [id number] 2.16.8 40.1.224661.3.579.2.727 1941 Unknown [id number] 2.16.84 0.1.805457.3.579.2.1347 1941 Unknown [id number] 2.16.84 0.1.762569.3.579.2.1347 1941 Unknown [id number] 2.16.84 0.1.382587.3.579.2.1347 1941 Unknown [id number] 2.16.84 0.1.158237.3.579.2.1347 1941 Unknown [id number] 2.16.84 0.1.016813.3.579.2.1347 1941 Unknown [id number] 2.16.84 0.1.858770.3.579.2.1347 1941 Unknown [id number] 2.16.840 .1.790236.3.579.2.1347 1941 Unknown [id number] 2.16.8 40.1.764908.3.579.2.174 1941 Unknown [id number] 2.16.8 40.1.634819.3.579.2.174 1941 Unknown [id number] 2.16.8 40.1.336568.3.579.2.174 1941 Unknown [id number] 2.16.8 40.1.124345.3.579.2.174 Social History Date Type Detail Facility Sex Assigned At [employer] Other Start: 1940 Sex Assigned At Male [facility] Start: 01-27-2024 End: 08-04-2024 Tobacco smoking status NHIS Unknown if ever smoked [facility] Start: 01-27-2024 Alcohol intake (observable entity) Alcohol Use Details [facility] Start: 01-27-2024 Health-related behavior (observable entity) Caffeine Use Details [facility] Start: 05-18-2024 Alcohol intake Alcohol Use Details [facility] Start: 08-06-2024 End: 08-13-2024 Sex Male (finding) [facility] NEGATED: Highlighted rowStart: 01-27-2024 History of [...] 08-19-2023 End: 08-19-2023 Clinical Notes 08-21-2022 to 08-06-2024 Note Date & Type Note Facility 08-06-2024 Evaluation note Diagnosis Onset Date Resolution BPPV (benign paroxysmal positional vertigo) acute July 10:30am Chronic bronchitis, mucopurulent acute August 06, 2024 10:30am Dysphagia acute August 06, 2024 10:30am Elevated cholesterol acute ua2024 10:30am Essential hypertension acute Fe bruary 2024 10:30am Hyperprolactinemia acute ry 2024 10:30am Type 2 diabetes mellitus with hyperglycemia acute July 10:30am Inflammatory arthritis acute [facility] 2024 10:53am Pseudogout of left knee acute [facility] 2024 10:53am Left knee pain noneactive August 13, 2024 10:53am [facility] Work Phone: 1(238) 823-526602-25-2025 Evaluation note* Type Assessment Date assessment Optic neuropathy impression Optic neuropathy: H46.9. 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 Patient states since his last visit his vision has not been right. Patient states that he see's dots on the young now, almost every day. Patient reports occasionally when looking at anything straight it appears wavy. Patient has difficultly making out details. Exudative ARMD The 84 year old male presents for treatment of AMD in the left eye. Patient states that for about a week or more he had dizzy spells. Patient never went to the doctor to see what was going on. Patient states his vision is about the same. Patient states that some days he can see better then others. Patient denies any floaters or flashes of light. macular degeneratio The 84 year old male [...] no visual changes in the left eye. [facility] Work Phone: 1(164) 710-143802-25-2025 Instructions* Date Instruction Additional Infor carito Impression/Plan Related to Optic neuropathy Return 10 weeks DFE/ OCT/ VAB OS (1of3) Related to Exdtve age-rel mclr degn, left [...] eye, with inactive scar 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 Impression/Plan Related to Essen tial (primary) hypertension [...] Prese nce of intraocular lens Return in 4 week(s) with Ivonne Aggarwal MD for I.O. EYL OU w/OCT Related to Exuda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, bi, with actv chrdl neovas Feb-16-2022 Impression/Plan Related to Exuda tive age-rel mclr [...] changes. Appropriate follow up with primary eye hospice care consultant was recommended. Related to Nonexudative senile macular [...] changes. Appropriate follow up with primary eye hospice care consultant was recommended. 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 Related to Senile nuclear sclerosis [facility] Work Phone: 1(429) 508-971312-10-2024 Evaluation note* Type Assessment Date assessment Exdtve age-rel mclr degn, left e ye, with actv chrdl neovas impression Exdtve age-rel mclr degn, left eye, with actv chrdl neovas: H35.3221 Left [facility] Work Phone: 1(511) 454-795512-10-2024 History of Present illness Narrative* Encounter Date [...] and left eye for treatment of AMD. Aug-03-2022 Exudative ARMD The 82 year old male [...] no visual changes in the left eye. [facility] Work Phone: 1(241) 324-636312-10-2024 Instructions* Date Instruction Additional Infor mation Impression/Plan Related to Exdtv e age-rel mclr [...] changes. Appropriate follow up with primary eye hospice care consultant was recommended. Related to Nonexudative senile macular [...] changes. Appropriate follow up with primary eye hospice care consultant was recommended. 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 Britt for follow up exam and OCT. 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 [facility] Work Phone: 1([phone]) 951-603808-20-2024 Instructions* Date Instruction Additional Infor carito Impression/Plan [...] intraocular lens Return in 2 [facility] Mehrdad Britt MD for follow up and [...] changes. Appropriate follow up with primary eye hospice care consultant was recommended. Related to Nonexudative senile macular [...] changes. Appropriate follow up with primary eye hospice care consultant was recommended. Related to Nonexudative senile macular [...] degeneration of retina [facility] Work Phone: 1([phone]) [phone] Evaluation note* Encounter Date Diagnosis Assessment Notes [...] abstinence. Beyond quidelines for yearly LDCT lungs [employer] Other 06-26-2023 Evaluation note* Encounter Date Diagnosis [...] R53.83) Push fluids, healthy diet, check labs [facility] Other 03-15-2023 Hospital Discharge instructions Follow Up Care 08/21/2022 16:35:55 With:JOCE BARRETT, Mikhail Murphy, URL Address: [address] [place] [address]- When: Unknown [facility] Consult note* Clinical Note Date No Information [facility] Work Phone: Discharge summary* Clinical Note Date No Information [facility] Work Phone: Evaluation + Plan note No data available for this section [facility] Other Evaluation note* Diagnosis Onset Date Resolution Status BPPV (benign paroxysmal positional vertigo) acute Chronic bronchitis, mucopurulent acute Elevated cholesterol acute Essential hypertension acute Type 2 diabetes mellitus with hyperglycemia [facility] Work Phone: Evaluation note* Diagnosis Onset Date Resolution Status BPPV (benign paroxysmal positional vertigo) acute Chronic bronchitis, mucopurulent acute Elevated cholesterol acute Essential hypertension acute Medicare annual wellness visit, subsequent acute Type 2 diabetes mellitus with hyperglycemia acute [facility] Work Phone: Evaluation note* Diagnosis Onset Date Resolution Status Admit Date Chronic bronchitis, mucopurulent acu te August 06, 2024 10:30am CLOUD (dyspnea on exertion) acute August 06, 2024 10:30am Elevated cholesterol acute Febr uary 2024 10:30am Essential hypertension acute Fe bruary 2024 10:30am Hyperprolactinemia acute Februa ry 2024 10:30am Type 2 diabetes mellitus wit h hyperglycemia acute August 06, 025 10:30am [facility] Work Phone: Evaluation note* Type Assessment Date No Information [facility] Work Phone: History and physical note* Clinical [...] arthroscopy 2002 Hospitalization History see surgical history [employer] Other Progress note No data available for this section [facility] Progress note* Clinical Note Date No Information [facility] Work Phone: Reason for referral (narrative)* Reason Referral for BPPV Diagnosis 1 Benign paroxysmal po sitional vertigo of left ear (H81.12) Referral Organization [facility] Referring Provider First Name Abdiaziz Referring Provider Last Name Murphy Referring Provider Specialty Internal Me dicine Referred Organization [facility] Referred Provider Cheli Alejo Referred Address ,[place], [place],[address] Referred Provider Specialty Ear, Nose an d Throat Referral Priority Routine General Notes Mr. Carranza presents wit h recurrent episodes of dizziness. He states his symptoms are becoming more frequent and interfere with ADL. His symptoms includes lightheadedness, unsteadiness and spinning. He has loss of hearing and tinnitus. His neurovascular evaluation has not revealed an etiology to his symptoms. The Turin-Hallpike Maneuver reproduced his symptoms with the left ear dependent. His orthostatic measurements were normal. He has no focal neurologic deficits. [employer] Other Reason for referral (narrative)* Reason For Referral No Information [facility] Work Phone: Summary Purpose Family History Relationship Condition Age at Onset Recorded Date/T roger father Heart disease Unknown History of stroke Unknown Family Member Type Diagnosis Age At Onset Problem (finding) Family history of strok e Problem (finding) Family history of hyper tension Advance Directives Advance Directive Response Recorded Date/ Time Advance Directives No September 30 9:25am Directive Yes / No Effective Date File Name No Information Advance Directive Response Recorded Date/ Time Advance Directives No September 30 8:25am Chief Complaint and Reason for Visit Chief Complaint Amb Documentation Dizziness Reason for Visit BPPV (benign paroxys mal positional vertigo) Chronic bronchitis, mucopurulent Elevated cholesterol Essential hypertension Type 2 diabetes mellitus with hyperglycemia Chief Complaint [facility] Reason for Visit BPPV (benign paroxys mal positional vertigo) Chronic bronchitis, mucopurulent Elevated cholesterol Essential hypertension Medicare annual wellness visit, subsequent Type 2 diabetes mellitus with hyperglycemia Chief Complaint Admit Date check up, bp med concerns August 06, 2024 10:30am Reason for Visit Admit Date Chronic bronchitis, mucopurulent Februar y 2024 10:30am CLOUD (dyspnea on exertion) August 06, 2024 10:30am Elevated cholesterol August 06, 2024 10:30am Essential hypertension August 06 10:30am Hyperprolactinemia August 06, 2024 10:30am Type 2 diabetes mellitus with hyperglyce vitaliy August 06, 2024 10:30am Chief Complaint Admit Date check up, bp med concerns August 06, 2024 10:30am knee pain August 13, 2024 10:5 3am Reason for Visit Admit Date BPPV (benign paroxysmal positional verti go) August 06, 2024 10:30am Chronic bronchitis, mucopurulent Februar y 2024 10:30am Dysphagia August 06, 2024 10:30am Elevated cholesterol August 06, 2024 10:30am Essential hypertension August 06 10:30am Hyperprolactinemia August 06, 2024 10:30am Type 2 diabetes mellitus with hyperglyce vitaliy August 06, 2024 10:30am Inflammatory arthritis August 13, 2024 1 0:53am Pseudogout of left knee August 13, 2024 10:53am Left knee pain August 13, 2024 10:5 3am Additional Source Comments (unrecognized sect ion and content) No Status Records FoundNo Status Records FoundNo Status Records FoundNo Status Records Found INFORMATION SOURCE (unrecogn ized section and content) DATE CREATED AUTHOR 09/17/2022 [facility] DATE CREATED AUTHOR AUTHOR'S ORGANIZ ATION 09/19/2022 [facility] DATE CREATED AUTHOR AUTHOR'S ORGANIZ ATION 08/06/2024 [facility] DATE CREATED AUTHOR AUTHOR'S ORGANIZ ATION 08/13/2024 Renée thomas Patient Care team informatio n (unrecognized section [...] March 16, 2024 End: March 16, 2024 Team Status: Inactive Member Role Status Dates Abdiaziz Arrington DO Primary Care Provide r, Attending Provider Active Start: August 13, 2024 End: August 13, 2024 REASON FOR VISIT (unrecogniz ed section [...] BE BASED ON THE PRIMARY CLINICAL RECORDS. [employer] provides no warranty or guarantee of the accuracy or completeness of information in this document.
[2024-08-19 12:25] LABS: C Reactive Protein <0.50 mg/dL (<=0.50)
== END 2024-08-19 11:32 | disposition home or self-care (01) ==
LOC: LAB 11:33
PROVIDERS: PCP Internal Medicine; Visit Provider Internal Medicine
DX: M25.562 Pain in left knee (principal); M25.462 Effusion, left knee; M70.42 Prepatellar bursitis, left knee
CPT/HCPCS: 36415; 73564; 85025; 86140

== ENCOUNTER 2024-08-24 09:25 | Outpatient (OUT) | payer MEDICARE, OTHER, SELFPAY ==
--- OUTSIDE RECORDS SUMMARY | 2024-08-24 09:33 | XMS_ITS | CCD ---
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 Name Role Phone MURPHY, DR PARDO Primary [...] Unavailable BALL, DR PARDO Consulting Unavailable BALL, ABDIAZIZ Primary Care Physician [phone] Mikhail HOBSON Attending Unavailable Ball, Abdiaziz Unavailable Cortez Tobias MD, Jay Unavailable Unavailabl e Cortez Tobias MD, Jay Unavailable Unavailabl e Cortez Tobias MD, Jay Unavailable Unavailprudence Deutsch MD, Doctor Unavailable Unavailable BALL, ABDIAZIZ Referring Unavailable BALL, ABDIAZIZ Referring Unavailable BALL, ABDIAZIZ Referring Unavailable BALL, ABDIAZIZ Referring Unavailable BALL, ABDIAZIZ Referring Unavailable Unavailable Primary Care Provider Unavailabl e Al Micheline, Jay Attending Unavailable Al Shweiki, Jay Referring Unavailable Al Shweiki, Jay Attending Unavailable Al Shweiki, Jay Referring Unavailable Al Shweiki, Jay Attending Unavailable Al Shweiki, Jay Referring Unavailable Al Shweiki, Jay Attending Unavailable Al Shweiki, Jay Referring Unavailable Al Shweiki, Jay Attending Unavailable Al Shweiki, Jay Attending Unavailable Al Shweiki, Jay Referring Unavailable Corporate, Doctor Attending Unavailable Geo Ortiz Attending Unavailable Allergies Allergy Classification Reported Allergen(s) Allergy Type Date of Onset Reaction(s) Facility (1 source) umeclidinium / vilanterol Drug Allergy Unknown Amorelie Other (2 sources) Anoro Ellipta *ANTIASTHMATIC AND BRONCHODILATOR AG Propensity to adverse reactions Comment:Dizzy Amorelie Other (4 sources) umeclidinium Drug Allergy 03-16-20 [facility] (4 sources) vilanterol Drug Allergy 03-16-20 [facility] Medications Current Medications Medication Drug Class(es) Dates Sig (Normalized) Sig (Original) amLODIPine 2.5 mg oral tablet (4 sources) Dihydropyridine Calcium Channel Raymundo take 1 tablet by mouth once daily amlodipine 2.5 mg tablet take 1 tablet by oral route every day 2.5 MG - Active atorvastatin 80 mg oral tablet (16 sources) HMG-CoA Reductase Inhibitor Start: 01-01-2024 take 1 tablet by mouth once daily in the evening Atorvastatin 80 mg tablet Active 0 .ROUTE .COMPLEX January 01, 2024 7:04am TAKE 1 TABLET BY MOUTH EVERY EVENING Start: 10-01-2023 End: 01-01-2024 take 1 tablet by mouth once daily Atorvastatin 80 mg tablet Discontinued 80 MG PO Daily October 01, 2023 12:00am January 01, 2024 7:04am losartan potassium 25 mg oral tablet (12 sources) Angiotensin 2 Receptor Raymundo Start: 02-06-2024 [...] 1 TABLET BY MOUTH EVERY DAY Active ondansetron 4 mg disintegrating oral tablet (1 source) Serotonin-3 Receptor Antagonist Start: 08-17-2024 take 1 tablet by mouth every eight hours as needed for nausea and vomiting Ondansetron 4 mg tablet,disintegrating Active 4 MG PO Every 8 hours as needed for nausea and vomiting 9 August 17, 2024 12:00am predniSONE 20 mg oral tablet (2 sources) Start: 08-13-2024 Prednisone 20 mg tablet Active 20 MG PO .COMPLEX 15 August 13, 2024 1:00am 20 mg orally; 1 tab bid w/ food x 5 days, then qd w/ food x 5 days Completed/Discontinued Medications Medication Drug Class(es) Dates Sig (Normalized) Sig (Original) barium sulfate 40 % paste 5 mL (1 source) Start: 08-17-2024 End: 08-17-2024 take 1 dose by mouth once 5 mL, Oral, IMG ONCE PRN, 1 dose, Starting on Tu08/17/24 at 1322, Until 08/17/24 at 1323, Other barium sulfate 96 % suspension 176 g (1 source) Start: 08-17-2024 End: 08-17-2024 take 1 dose by mouth once 176 g, Oral, IMG ONCE PRN, 1 dose, Starting on Tu08/17/24 at 1321, Until Tu08/17/24 at 1323, Other ipratropium bromide 0.042 mg/actuat metered dose nasal spray (10 sources) Anticholinergic Start: 04-09-2024 End: 08-06-2024 take 2 spray(s) nasal route three times daily Ipratropium [place] 42 mcg (0.06 %) spray,non-aerosol Discontinued 0 .ROUTE .COMPLEX May 23, 2024 10:14am August 06, 2024 11:39am INSTILL 2 SPRAYS INTO EACH NOSTRIL 3 TIMES A DAY Start: 03-16-2024 End: 04-09-2024 take 1 spray(s) nasal route three times daily Ipratropium [place] 42 mcg (0.06 %) spray,non-aerosol Discontinued 2 [...] Chronic Chronic obstructive pulmonary disease and bronchiectasis (20 sources) Mucopurulent chronic bronchitis; Translations: [Mucopurulent chronic bronchitis] Chronic Conditions associated with dizziness or vertigo (14 sources) Benign paroxysmal positional vertigo; Translations: [Benign paroxysmal vertigo, left ear] Onset: 5 Episodic Diabetes mellitus with complications (20 sources) Type 2 diabetes mellitus with diabetic [...] bilateral] Chronic Gout and other crystal arthropathies (4 sources) Chondrocalcinosis due to pyrophosphate crystals of [...] fatigue (1 source) Other fatigue Episodic Osteoarthritis (4 sources) Arthritis; Translations: [Unspecified osteoarthritis, unspecified site] 08-13-2024 Chronic Other aftercare (1 source) shelter (current) use of antithrombotics/antipl atelets; Translations: [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 ANTITHROMBOT/ANTIPLATL ETS] Onset: 3 Episodic Other aftercare (1 source) Other [facility] (current) drug therapy; Translations: [OTH [facility] CURRENT DRUG THERAPY] Onset: 3 Episodic Other aftercare (3 sources) H/O: high risk medication; Translations: [Other terminal superintendent (current) drug therapy] Episodic Other and unspecified [...] cerebral infarction without residual deficits] Episodic Other circulatory disease (2 sources) Choking; Translations: [Unspecified foreign body in larynx causing other injury, initial encounter] 08-17-2024 Episodic Other connective tissue disease (1 source) Prepatellar bursitis of left knee; Translations: [Prepatellar bursitis, left knee] 08-19-2024 Episodic Other endocrine disorders (4 sources) Hyperprolactinemia; Translations: [Hyperprolactinemia] 03-13-2024 Chronic Other endocrine disorders (3 sources) Hyperprolactinemia; 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] 08-06-2024 Chronic Other eye disorders (2 sources) Disorder of optic nerve; 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 Other gastrointestinal disorders (9 sources) Dysphagia, unspecified; Translations: [Dysphagia, unspecified] Onset: 3 Episodic Other gastrointestinal disorders (4 sources) Dysphagia; Translations: [Dysphagia, unspecified] 08-06-2024 Episodic Other injuries and conditions due to external causes (1 source) Unspecified foreign body in larynx causing other injury, initial encounter; Translations: [Unspecified foreign body in larynx causing other injury, initial encounter] Onset: 5 Episodic Other lower respiratory disease (6 sources) Dyspnea on exertion; Translations: [Other forms [...] on feet Episodic Other non-traumatic joint disorders (4 sources) Pain in left knee; Translations: [Pain in joint, lower leg] 08-13-2024 Episodic Other screening for suspected conditions (not mental disorders or infectious disease) (8 sources) Elevated prostate specific antigen [PSA]; Translations: [Encounter for screening for malignant neoplasm of prostate] Onset: 2 Episodic Other upper respiratory disease (3 sources) Vasomotor rhinitis; Translations: [Vasomotor rhinitis] 03-16-2024 [...] NICOTINE DEPEND] Onset: 3 Episodic Substance-related disorders (12 sources) Tobacco dependence in remission; Translations: [Nicotine [...] Test Name Value Interpretation Reference Range Facility FL MODIFIED BARIUM SWALLOW W VIDEOon 08-17-2024 FL MODIFIED BARIUM SWALLOW W VIDEO EXAMINATION: FL MODIFIED BARIUM SWALLOW W VIDEO. HISTORY: Dysphagia, unspecified type. COMPARISON: Prior study 05/15/2022 showed multiple episodes of penetration from mild to deep. FLUORO DOSE: 13.736 mGy Reference air kerma (Ka,r). TECHNIQUE: Cine fluoroscopic evaluation of swallowing function with speech pathology. Speech pathologist administered varying consistencies of barium and I provided fluoroscopic assistance and interpretation. FINDINGS: Multiple swallows are needed throughout all phases to clear the vallecula. A chin tuck was of minimal additional benefit. There were several episodes of deep penetration on thin liquid, which provoked a cough, but without aspiration. Overall the study appears to be slightly improved from 05/15/2022. IMPRESSION: Retained material in the vallecula requires multiple swallows to clear. Deep penetration with thin but without aspiration. Please refer to the speech pathologist report for additional findings and recommendations. Interpreted by: Bart Gardner Jr., MD Signed by: Bart Gardner Jr., MD 08/17/24 Edited Result - FINAL Normal [facility] Retained material in the vallecula requires multiple swallows to clear. Deep penetration with thin but without aspiration. Please refer to the speech pathologist report for additional findings and recommendations. [facility] EXAMINATION: FL MODIFIED BARIUM SWALLOW W VIDEO. HISTORY: Dysphagia, unspecified type. COMPARISON: Prior study 05/15/2022 showed multiple episodes of penetration from mild to deep. FLUORO DOSE: 13.736 mGy Reference air kerma (Ka,r). TECHNIQUE: Cine fluoroscopic evaluation of swallowing function with speech pathology. Speech pathologist administered varying consistencies of barium and I provided fluoroscopic assistance and interpretation. FINDINGS: Multiple swallows are needed throughout all phases to clear the vallecula. A chin tuck was of minimal additional benefit. There were several episodes of deep penetration on thin liquid, which provoked a cough, but without aspiration. Overall the study appears to be slightly improved from 05/15/2022. [facility] Bart Gardner Jr., MD - 08/17/2024 EXAMINATION: FL MODIFIED BARIUM SWALLOW W VIDEO. HISTORY: Dysphagia, unspecified type. COMPARISON: Prior study 05/15/2022 showed multiple episodes of penetration from mild to deep. FLUORO DOSE: 13.736 mGy Reference air kerma (Ka,r). TECHNIQUE: Cine fluoroscopic evaluation of swallowing function with speech pathology. Speech pathologist administered varying consistencies of barium and I provided fluoroscopic assistance and interpretation. FINDINGS: Multiple swallows are needed throughout all phases to clear the vallecula. A chin tuck was of minimal additional benefit. There were several episodes of deep penetration on thin liquid, which provoked a cough, but without aspiration. Overall the study appears to be slightly improved from 05/15/2022. IMPRESSION: Retained material in the vallecula requires multiple swallows to clear. Deep penetration with thin but without aspiration. Please refer to the speech pathologist report for additional findings and recommendations. [facility] Radiology Study observation (narrative) [facility] [place] MODIFIED BARIUM SWALLOW W VIDEOOrdered By: Bart Gardner on 08-17-2024 [facility] Work Phone: Basophils Auto (Bld) [#/Vol] on 08-16-2024 Basophils (Bld) [#/Vol] Automated basophil count 0.0-0.1 [facility] Basophils/100 WBC Auto (Bld) on 08-16-2024 Basophils/100 WBC (Bld) Automated basophil % 0.2-2.0 [facility] Eosinophils/100 WBC Auto (Bl d)on 08-16-2024 Eosinophils/100 WBC (Bld) Automated eosinophil % Low 0.9-7.0 [facility] Erythrocyte distribution wid th Auto (RBC) [Ratio]on 08-16-2024 Erythrocyte distribution width (RBC) [Ratio] Erythrocyte distribution width [Ratio] by Automated count 11.0-15.0 [facility] Estimated glomerular filtrat ion rate (GFR) non- Americanon 08-16-2024 GFR/1.73 sq M.predicted among non-blacks MDRD (S/P/Bld) [Vol rate/Area] Estimated glomerular filtration rate (GFR) non- >=60 mL/min/1.73m 2 [facility] Globulin Calc (S) [Mass/Vol] on 08-16-2024 Globulin (S) [Mass/Vol] Serum globulin measurement by calculation (mass/volume) [facility] Glucose mean value [Mass/vol ume] in Blood Estimated from glycated hemoglobinon 08-16-2024 Average glucose Estimated from glycated hemoglobin (Bld) [Mass/Vol] Glucose mean value [Mass/volume] in Blood Estimated from glycated hemoglobin [facility] Hematocrit Auto (Bld) [Volum e fraction]on 08-16-2024 Hematocrit (Bld) [Volume fraction] Hematocrit [Volume Fraction] of Blood by Automated count 42.0-54.0 [facility] Hemoglobin A1c percentageon 08-16-2024 HbA1c (Bld) [Mass fraction] Hemoglobin A1c percentage High 4.5-6.2 [facility] Comment on above: ADA RECOMMENDED LIMI T 4.0 - 6.0ADA THERAPEUTIC TARGET < 7.0ACTION SUGGESTED> 7.0 Hemoglobin [Mass/volume] in Bloodon 08-16-2024 Hemoglobin (Bld) [Mass/Vol] Hemoglobin [Mass/volume] in Blood 14.0-18.0 [facility] Laboratory - Chemistry and C hemistry - challengeon 08-16-2024 Albumin [Mass/Vol] 3.9 g/dL 3.4-5.0 [facility] ALP [Catalytic activity/Vol] 83 U/L 46-116 [facility] ALT [Catalytic activity/Vol] 18 U/L 16-63 [facility] AST [Catalytic activity/Vol] 10 U/L Low 15-37 [facility] Bilirubin [Mass/Vol] 0.8 mg/dL 0.2-1.0 [facility] Calcium [Mass/Vol] 9.2 mg/dL 8.5-10.1 [facility] Chloride [Moles/Vol] 101 mmol/L 98-107 [facility] CO2 [Moles/Vol] 29.1 mmol/L 21.0-32.0 [facility] Creatinine [Mass/Vol] 1.09 mg/dL 0.70-1.30 [facility] GFR/1.73 sq M.predicted MDRD (S/P/Bld) [Vol rate/Area] mL/min/{1.73_m2} >=60 mL/min/1.73m 2 [facility] Glucose [Mass/Vol] 220 mg/dL High 74-106 [facility] Potassium [Moles/Vol] 4.0 mmol/L 3.5-5.1 [facility] Protein [Mass/Vol] 7.4 g/dL 6.4-8.2 [facility] Sodium [Moles/Vol] 140 mmol/L 136-145 [facility] Urea nitrogen [Mass/Vol] 21.0 mg/dL High 7.0-18.0 [facility] Urea nitrogen/Creatinine [Mass ratio] 19.3 mg/mg [facility] Laboratory - Hematology and Cell countson 08-16-2024 Immature granulocytes/100 WBC (Bld) 0.3 % 0.0-0.5 [facility] Leukocytes [#/volume] correc domen[place] for nucleated erythrocytes in Blood by Automated counon 08-16-2024 WBC corrected for nucl RBC Auto (Bld) [#/Vol] Leukocytes [#/volume] corrected for nucleated erythrocytes in Blood by Automated coun 4.0-11.0 [facility] Lymphocytes Auto (Bld) [#/Vo l]on 08-16-2024 Lymphocytes (Bld) [#/Vol] Lymphocytes [#/volume] in Blood by Automated count Low 1.2-3.8 [facility] Lymphocytes/100 WBC Auto (Bl d)on 08-16-2024 Lymphocytes/100 WBC (Bld) Lymphocytes/100 leukocytes in Blood by Automated count Low 20.5-60.0 [facility] MCH Auto (RBC) [Entitic mass ]on 08-16-2024 MCH (RBC) [Entitic mass] MCH [Entitic mass] by Automated count 25.9-34.0 [facility] MCHC Auto (RBC) [Mass/Vol]on 08-16-2024 MCHC (RBC) [Mass/Vol] MCHC [Mass/volume] by Automated count 29.9-35.2 [facility] MCV Auto (RBC) [Entitic vol] on 08-16-2024 MCV (RBC) [Entitic vol] MCV [Entitic volume] by Automated count 80.0-94.0 [facility] Monocytes Auto (Bld) [#/Vol] on 08-16-2024 Monocytes (Bld) [#/Vol] Automated blood monocyte count 0.3-0.8 [facility] Monocytes/100 WBC Auto (Bld) on 08-16-2024 Monocytes/100 WBC (Bld) Automated monocyte % 1.7-12.0 [facility] Neutrophils Auto (Bld) [#/Vo l]on 08-16-2024 Neutrophils (Bld) [#/Vol] Neutrophils [#/volume] in Blood by Automated count High 1.4-6.5 [facility] Neutrophils/100 WBC Auto (Bl d)on 08-16-2024 Neutrophils/100 WBC (Bld) Automated neutrophil % High 43.0-75.0 [facility] No Panel Informationon 08-16 Eosinophils # (Auto) 0.0 10 3/uL 0.0-0.7 [facility] Immature Granulocyte # (Auto) 0.03 10 3/uL 0.00-0.03 [facility] Prolactin 10.8 ng/mL 3.6-32.0 [facility] Comment on above: Performed at: [place] [id number] Director: Ra Taylor PhD, Phone: [phone] Platelet mean volume Auto (B ld) [Entitic vol]on 08-16-2024 Platelet mean volume (Bld) [Entitic vol] Platelet mean volume [Entitic volume] in Blood by Automated count 9.5-13.5 [facility] Platelets Auto (Bld) [#/Vol] on 08-16-2024 Platelets (Bld) [#/Vol] Platelets [#/volume] in Blood by Automated count 150-450 [facility] RBC Auto (Bld) [#/Vol]on RBC (Bld) [#/Vol] Erythrocytes [#/volume] in Blood by Automated count Low 4.70-6.10 [facility] Serum or plasma albumin/glob ulin mass ratioon 08-16-2024 Albumin/Globulin [Mass ratio] Serum or plasma albumin/globulin mass ratio [facility] Serum or plasma anion gap de terminationon 08-16-2024 Anion gap [Moles/Vol] Serum or plasma anion gap determination [facility] Lab Reportson 09-18-2022 Lab Reports [id number] #1.00CD:[address] [facility] Lab Reports [id number] #1.00CD:[address] [facility] Lab Reports [id number] #1.00CD:[address] [facility] RAD - CT Reporton 09-18-2022 RAD - CT Report [id number] #1.00CD:[address] [facility] CBC AUTO DIFFon 08-21-2022 BASO # 0.1 103/ul Normal 0.0-0.1 [facility] Comment on above: Performed By: #### C BC ####[facility] [address] [place] [address]Dr. Howie Sanford Basophils/100 WBC (Bld) 0.8 % Normal 0.2-2.0 [facility] Comment on above: Performed By: #### C BC ####[facility] [address] [place] [address]Dr. Howie Sanford EO # 0.1 103/ul Normal 0.0-0.7 [facility] Comment on above: Performed By: #### C BC ####[facility] [address] [place] [address]Dr. Howie Sanford Eosinophils/100 WBC (Bld) 1.8 % Normal 0.9-7.0 [facility] Comment on above: Performed By: #### C BC ####[facility] [address] [place] [address]Dr. Howie Sanford Erythrocyte distribution width (RBC) [Ratio] 13.1 % Normal 11.0-15.0 [facility] Comment on above: Performed By: #### C BC ####[facility] [address] [place] [address]Dr. Howie Sanford Hematocrit (Bld) [Volume fraction] 46.9 % Normal 42.0-54.0 [facility] Comment on above: Performed By: #### C BC ####[facility] [address] [place] [id number]. Howie Sanford Hemoglobin (Bld) [Mass/Vol] 15.6 g/dL Normal 14.0-18.0 [facility] Comment on above: Performed By: #### C BC ####[facility] [address] [place] [id number]. Howie Sanford IG # 0.01 10e3/ul Normal 0.00-0.03 [facility] Comment on above: Performed By: #### C BC ####[facility] [address] [place] [address]Dr. Howie Sanford IG % 0.2 % Normal 0.0-0.5 [facility] Comment on above: Performed By: #### C BC ####[facility] [address] [place] [address]Dr. Howie Sanford LYMPH # 0.8 103/ul Critically low 1.2-3.8 [facility] Comment on above: Performed By: #### C BC ####[facility] [address] [place] [address]Dr. Howie Sanford Lymphocytes/100 WBC (Bld) 14.0 % Critically low 20.5-60.0 [facility] Comment on above: Performed By: #### C BC ####[facility] [address] [place] [address]Dr. Howie Sanford MANUAL DIFF REQ NO Normal [facility] Comment on above: Performed By: #### C BC ####[facility] [address] [place], [place] [address]Dr. Howie Sanford MCH (RBC) [Entitic mass] 30.6 pg Normal 25.9-34.0 [facility] Comment on above: Performed By: #### C BC ####[facility] [address] [place], [place] [address]Dr. Howie Sanford MCHC (RBC) [Mass/Vol] 33.3 g/dL Normal 29.9-35.2 [facility] Comment on above: Performed By: #### C BC ####[facility] [address] [place] [phone]. Howie Sanford MCV (RBC) [Entitic vol] 92.1 fL Normal 80.0-94.0 [facility] Comment on above: Performed By: #### C BC ####[facility] [address] [place] [phone]. Howie Sanford MONO # 0.5 103/ul Normal 0.3-0.8 [facility] Comment on above: Performed By: #### C BC ####[facility] [address] [place] [phone]. Howie Sanford Monocytes/100 WBC (Bld) 7.7 % Normal 1.7-12.0 [facility] Comment on above: Performed By: #### C BC ####[facility] [address] [place], [place] [address]Dr. Howie Sanford NEUT # 4.5 103/ul Normal 1.4-6.5 [facility] Comment on above: Performed By: #### C BC ####[facility] [address] [place], [place] [address]Dr. Howie Sanford Neutrophils/100 WBC (Bld) 75.5 % Critically high 43.0-75.0 [facility] Comment on above: Performed By: #### C BC ####[facility] [address] [place], [place] [id number]. Howie Sanford Platelet mean volume (Bld) [Entitic vol] 11.4 fL Normal 9.5-13.5 [facility] Comment on above: Performed By: #### C BC ####[facility] [address] [place] [id number]. Howie Sanford PLT 203 103/ul Normal 150-450 [facility] Comment on above: Performed By: #### C BC ####[facility] [address] [place] [phone]. Howie Sanford RBC 5.09 106/ul Normal 4.70-6.10 [facility] Comment on above: Performed By: #### C BC ####[facility] [address], [place] [address]VgAnne Sanford WBC 6.0 103/ul Normal 4.0-11.0 [facility] Comment on above: Performed By: #### C BC ####[facility] [address] [place] [phone] Sanford CT ABD/PELVIS WO CONon 08-21 CT [...] MARIELOS CAMPOS Date: 2022-08-21 13:31 Normal [facility] CULTURE URINEon 08-21-2022 CULTURE URINE Culture Observations: NO GROWTH. Normal [facility] Comment on above: Performed By: #### U RCX #### [facility] [address] [place] [address] [address] Howie Sanford ER URINE PROFILEon 3 Bilirubin Ql (U) Negative Normal NEGATIVE [facility] Comment on above: Performed By: #### U MICRO, ERUR #### [facility] [address] [place] [address] [address] Howie Sanford Clarity (U) CLEAR Normal CLEAR [facility] Comment on above: Performed By: #### U MICRO, ERUR #### [facility] [address] [place] [address] [address] Howie Sanford Color (U) LT. YELLOW Normal YELLOW [facility] Comment on above: Performed By: #### U MICRO, ERUR #### [facility] [address] [place] [address] [address] Howie BELTRAN A micrscopic examination will be performed if indicated. Normal [facility] [facility] Comment on above: Performed By: #### U MICRO, ERUR #### [facility] [address] [address] [address] Howie Sanford Glucose Ql (U) Negative Normal NEGATIVE [facility] Comment on above: Performed By: #### U MICRO, ERUR #### [facility] [address] [address] [address] Howie Sanford Hemoglobin Ql (U) Negative Normal NEGATIVE [facility] Comment on above: Performed By: #### U MICRO, ERUR #### [facility] [address] [address] [address] Howie Sanford Ketones Ql (U) Negative Normal NEGATIVE [facility] Comment on above: Performed By: #### U MICRO, ERUR #### [facility] [address] [address] [address] Howie Sanford LEUKOCYTES Negative Normal NEGATIVE [facility] Comment on above: Performed By: #### U MICRO, ERUR #### [facility] [address] [address] [address] Howie Sanford Nitrite Ql (U) Negative Normal NEGATIVE [facility] Comment on above: Performed By: #### U MICRO, ERUR #### [facility] [address] [address] [address] Howie Sanford pH (U) 5.5 [pH] Normal 5-9 [facility] Comment on above: Performed By: #### U MICRO, ERUR #### [facility] [address] [address] [address] Howie Sanford Protein (U) [Mass/Vol] 100 mg/dL Abnormal NEGATIVE/ TRACE [facility] Comment on above: Performed By: #### U MICRO, ERUR #### [facility] [address] [address] [address] Howie Sanford SPEC GRAVITY >=1.030 Abnormal 1.005-<=1.025 [facility] Comment on above: Performed By: #### U MICRO, ERUR #### [facility] [address] [address] [address] Howie Sanford UR MICRO IND INDICATED Normal [facility] Comment on above: Performed By: #### U MICRO, ERUR #### [facility] [address] [address] [address] Howie Sanford Urobilinogen Qn (U) 0.2 {Adolfo'U}/dL Normal 0.2 - 1. 0 [facility] Comment on above: Performed By: #### U MICRO, ERUR #### [facility] [address] [address] [address] Howie Sanford PROF 14(COMP METB)on 023 Albumin [Mass/Vol] 4.2 g/dL Normal 3.4-5.0 [facility] Comment on above: Performed By: #### C MP ####[facility] [address] [address]DrAnne Sanford Albumin/Globulin [Mass ratio] 1.2 {ratio} Normal [facility] Comment on above: Performed By: #### C MP ####[facility] [address] [address]Dr. Howie Sanford ALP [Catalytic activity/Vol] 99 U/L Normal 46-116 [facility] Comment on above: Performed By: #### C MP ####[facility] [address] [address]Dr. Howie Sanford ALT [Catalytic activity/Vol] 23 U/L Normal 16-63 [facility] Comment on above: Performed By: #### C MP ####[facility] [address] [address]DrAnne Sanford Anion gap [Moles/Vol] 8.9 mmol/L Normal [facility] Comment on above: Performed By: #### C MP ####[facility] [address] [id number]. Howie Sanford AST [Catalytic activity/Vol] 16 U/L Normal 15-37 [facility] Comment on above: Performed By: #### C MP ####[facility] [address] [id number]. Howie Sanford Bilirubin [Mass/Vol] 0.5 mg/dL Normal 0.2-1.0 [facility] Comment on above: Performed By: #### C MP ####[facility] [address] [address]Dr. Howie Sanford Calcium [Mass/Vol] 9.2 mg/dL Normal 8.5-10.1 [facility] Comment on above: Performed By: #### C MP ####[facility] [address] [place], [place] [address]Dr. Howie Sanford Chloride [Moles/Vol] 104 mmol/L Normal 98-107 [facility] Comment on above: Performed By: #### C MP ####[facility] [address] [place], [place] [address]Dr. Howie Sanford CO2 [Moles/Vol] 28.3 mmol/L Normal 21.0-32.0 [facility] Comment on above: Performed By: #### C MP ####[facility] [address] [place], [place] [address]Dr. Howie Sanford Creatinine [Mass/Vol] 0.90 mg/dL Normal 0.70-1.30 [facility] Comment on above: Performed By: #### C MP ####[facility] [address] [address]Dr. Howie Sanford EGFR-AF PALAUAN >60 Normal >=60 [facility] Comment on above: Performed By: #### C MP ####[facility] [address] [phone]. Howie Juvenal EGFR-NON AF PALAUAN >60 Normal >=60 [facility] Comment on above: Performed By: #### C MP ####[facility] [address] [phone]. Howie Sanford Globulin (S) [Mass/Vol] 3.6 g/dL Normal [facility] Comment on above: Performed By: #### C MP ####[facility] [address] [phone]. Howie Sanford Glucose [Mass/Vol] 105 mg/dL Normal 74-106 [facility] Comment on above: Performed By: #### C MP ####[facility] [address] [address]Dr. Howie Sanford Potassium [Moles/Vol] 4.2 mmol/L Normal 3.5-5.1 [facility] Comment on above: Performed By: #### C MP ####[facility] [address] [address]Dr. Howie Sanford Protein [Mass/Vol] 7.8 g/dL Normal 6.4-8.2 [facility] Comment on above: Performed By: #### C MP ####[facility] [address] [address]Dr. Howie Sanford Sodium [Moles/Vol] 137 mmol/L Normal 136-145 [facility] Comment on above: Performed By: #### C MP ####[facility] [address] [address]Dr. Howie Sanford Urea nitrogen [Mass/Vol] 17.0 mg/dL Normal 7.0-18.0 [facility] Comment on above: Performed By: #### C MP ####[facility] [address] [phone]. Howie Sanford Urea nitrogen/Creatinine [Mass ratio] 18.9 mg/mg Normal [facility] Comment on above: Performed By: #### C MP ####[facility] [address] [address]Dr. Howie Sanford URINE MICROSCOPIC ONLYon BACTERIA SMALL Abnormal NONE SEEN [facility] Comment on above: Performed By: #### U MICRO, ERUR #### [facility] [address] [place] [address] Dr. Howie Sanford Bacteria identified Cx Nom (U) INDICATED Normal [facility] Comment on above: Result Comment: Prev iously reported as: NOT INDICATED On 08/21/2022 15:20 By DM9 Performed By: #### U MICRO, ERUR #### [facility] [address] [place] [address] Dr. Howie Sanford CAST NONE SEEN Normal NONE SEEN [facility] Comment on above: Performed By: #### U MICRO, ERUR #### [facility] [address] [place] [address] Dr. Howie Sanford Crystals LM Nom (Urine sed) NONE SEEN Normal NONE SEEN [facility] Comment on above: Performed By: #### U MICRO, ERUR #### [facility] [address] [place] [address] Dr. Howie Sanford Epithelial cells LM Ql (Urine sed) RARE Normal NONE SEEN /RARE [facility] Comment on above: Performed By: #### U MICRO, ERUR #### [facility] [address] [place] [address] Dr. Howie Sanford MUCOUS TRACE Abnormal NONE SEEN [facility] Comment on above: Performed By: #### U MICRO, ERUR #### [facility] [address] [place] [address] Dr. Howie Sanford RBC 2-5 Abnormal 0-2 [facility] Comment on above: Performed By: #### U MICRO, ERUR #### [facility] [address] [address] [address] Howie Sanford SPERMATOZOA, UR PRESENT Abnormal [facility] Comment on above: Performed By: #### U MICRO, ERUR #### [facility] [address] [address] [address] Howie Sanford WBC 5-10 Abnormal NONE SEEN [facility] Comment on above: Performed By: #### U MICRO, ERUR #### [facility] [address] [place] [address] Dr. Howie Sanford PSA, FREE AND TOTAL RATIOon 08-17-2022 % Free PSA 34.2 % Normal [facility] Comment on above: Result Comment: The [...] of men. Performed By: #### P SAFREE ####[facility] [address], [place] [address]OmDr. Howie Sanford Prostate specific Ag [Mass/Vol] 3.3 ng/mL Normal 0.0-4.0 [facility] Comment on above: Result Comment: Santosh andersen ECLIA methodology. . According to the [employer], Serum PSA should decrease and [...] malignant disease. Performed By: #### P SAFREE ####[facility] [address], [place] [address]PpAnne Sanford PSA, Free 1.13 ng/mL Normal N/A [facility] Comment on above: Result Comment: Roch ganesh ECLIA methodology. Performed By: #### P SAFREE ####[facility] [address], [place] [address]YaDr. Howie Sanford PROLACTINon 05-18-2022 Prolactin 16.4 ng/mL Critically high 4.0-15.2 [facility] Comment on above: Performed By: #### P ROLAC #### [facility] [address] [place], [place] [address] Dr. Howie Sanford CBC AUTO DIFFon 05-17-2022 BASO # 0.0 103/ul Normal 0.0-0.1 [facility] Comment on above: Performed By: #### C BC #### [facility] [address] [place] [address] Dr. Howie Sanford Basophils/100 WBC (Bld) 0.6 % Normal 0.2-2.0 [facility] Comment on above: Performed By: #### C BC #### [facility] [address] [place] [address] Dr. Howie Sanford EO # 0.1 103/ul Normal 0.0-0.7 [facility] Comment on above: Performed By: #### C BC #### [facility] [address] [place] [address] Dr. Howie Sanford Eosinophils/100 WBC (Bld) 2.0 % Normal 0.9-7.0 [facility] Comment on above: Performed By: #### C BC #### [facility] [address] [place] [address] Dr. Howie Sanford Erythrocyte distribution width (RBC) [Ratio] 12.6 % Normal 11.0-15.0 [facility] Comment on above: Performed By: #### C BC #### [facility] [address] [place] [address] Dr. Howie Sanford Hematocrit (Bld) [Volume fraction] 43.5 % Normal 42.0-54.0 [facility] Comment on above: Performed By: #### C BC #### [facility] [address] [place] [address] Dr. Howie Sanford Hemoglobin (Bld) [Mass/Vol] 14.3 g/dL Normal 14.0-18.0 [facility] Comment on above: Performed By: #### C BC #### [facility] [address] [place] [address] Dr. Howie Sanford IG # 0.02 10e3/ul Normal 0.00-0.03 [facility] Comment on above: Performed By: #### C BC #### [facility] [address] [place] [address] Dr. Howie Sanford IG % 0.4 % Normal 0.0-0.5 [facility] Comment on above: Performed By: #### C BC #### [facility] [address] [place] [address] Dr. Howie Sanford LYMPH # 1.0 103/ul Critically low 1.2-3.8 [facility] Comment on above: Performed By: #### C BC #### [facility] [address] [place] [address] Dr. Howie Sanford Lymphocytes/100 WBC (Bld) 20.1 % Critically low 20.5-60.0 [facility] Comment on above: Performed By: #### C BC #### [facility] [address] [place] [address] Dr. Howie Sanford MANUAL DIFF REQ NO Normal [facility] Comment on above: Performed By: #### C BC #### [facility] [address] [place] [address] Dr. Howie Sanford MCH (RBC) [Entitic mass] 30.4 pg Normal 25.9-34.0 [facility] Comment on above: Performed By: #### C BC #### [facility] [address] [place] [address] Dr. Howie Sanford MCHC (RBC) [Mass/Vol] 32.9 g/dL Normal 29.9-35.2 [facility] Comment on above: Performed By: #### C BC #### [facility] [address] [place] [address] Dr. Howie Sanford MCV (RBC) [Entitic vol] 92.6 fL Normal 80.0-94.0 [facility] Comment on above: Performed By: #### C BC #### [facility] [address] [place] [address] Dr. Howie Sanford MONO # 0.4 103/ul Normal 0.3-0.8 [facility] Comment on above: Performed By: #### C BC #### [facility] [address] [place] [address] Dr. Howie Sanford Monocytes/100 WBC (Bld) 8.1 % Normal 1.7-12.0 [facility] Comment on above: Performed By: #### C BC #### [facility] [address] [address] [address] Howie Sanford NEUT # 3.4 103/ul Normal 1.4-6.5 [facility] Comment on above: Performed By: #### C BC #### [facility] [address] [address] [address] Howie Sanford Neutrophils/100 WBC (Bld) 68.8 % Normal 43.0-75.0 [facility] Comment on above: Performed By: #### C BC #### [facility] [address] [address] [address] Howie Sanford Platelet mean volume (Bld) [Entitic vol] 11.0 fL Normal 9.5-13.5 [facility] Comment on above: Performed By: #### C BC #### [facility] [address] [address] [address] oHwie Sanford PLT 213 103/ul Normal 150-450 [facility] Comment on above: Performed By: #### C BC #### [facility] [address] [address] [address] Howie Sanford RBC 4.70 106/ul Normal 4.70-6.10 [facility] Comment on above: Performed By: #### C BC #### [facility] [address] [address] [address] Howie Sanford WBC 4.9 103/ul Normal 4.0-11.0 [facility] Comment on above: Performed By: #### C BC #### [facility] [address] [address] [address] Howie Sanford GLYCOHEMOGLOBIN A1Con 2021 ADA RECOMMENDATION SEE BELOW Normal [facility] Comment on above: Result Comment: ADA RECOMMENDED LIMIT 4.0 - 6.0 ADA THERAPEUTIC TARGET < 7.0 ACTION SUGGESTED > 7.0 Performed By: #### A 1C ####[facility] [address] [address]Dr. Howie Sanford Glucose [Mass/Vol] 140 mg/dL Normal [facility] Comment on above: Performed By: #### A 1C ####[facility] [address], [place] [address]NwDr. Howie Sanford HbA1c (Bld) [Mass fraction] 6.5 % Critically high 4.5-6.2 [facility] Comment on above: Performed By: #### A 1C ####[facility] [address], [place] [address]VvDr. Howie Sanford LIPID PROFILEon 05-17-2022 CHOL-HDL RATIO NORM SEE BELOW Normal [facility] Comment on above: Result Comment: 3.3 - 4.4 LOW RISK 4.4 - 7.1 AVERAGE RISK 7.1 - 11.0 MODERATE RISK >11.0 HIGH RISK Performed By: #### B MP, ALT, LIPID #### [facility] [address] [address] [address] Howie Sanford Cholesterol [Mass/Vol] 140 mg/dL Normal <=200 [facility] Comment on above: Performed By: #### B MP, ALT, LIPID #### [facility] [address] [address] [address] Howie Sanford Cholesterol in HDL [Mass/Vol] 41 mg/dL Normal 40-60 [facility] Comment on above: Performed By: #### B MP, ALT, LIPID #### [facility] [address] [address] [address] Howie Sanford Cholesterol in LDL [Mass/Vol] 80.4 mg/dL Normal [facility] Comment on above: Performed By: #### B MP, ALT, LIPID #### [facility] [address] [address] [address] Howie Sanford Cholesterol.total/Ch olesterol in HDL [Mass ratio] 3.4 {ratio} Normal [facility] Comment on above: Performed By: #### B MP, ALT, LIPID #### [facility] [address] [address] [address] Howie Sanford HDL NORMAL > or = 60 mg/dl - LOW CARDIOVASCULAR RISK <40 mg/dl - HIGH CARDIOVASCULAR RISK Normal [facility] Comment on above: Performed By: #### B MP, ALT, LIPID #### [facility] [address] [address] [address] Howie Sanford LDL CALC NORMAL SEE BELOW Normal [facility] Comment on above: Result Comment: <100 mg/dl OPTIMAL 100 - 129 mg/dl NEAR OR ABOVE OPTIMAL 130 - 159 mg/dl BORDERLINE HIGH 160 - 189 mg/dl HIGH >190 mg/dl VERY HIGH Performed By: #### B MP, ALT, LIPID #### [facility] [address] [address] [address] Howie Sanford Triglyceride [Mass/Vol] 93 mg/dL Normal <=150 [facility] Comment on above: Performed By: #### B MP, ALT, LIPID #### [facility] [address] [address] [address] Howie Sanford VLDL CALC 18.6 mg/dL Normal [facility] Comment on above: Performed By: #### B MP, ALT, LIPID #### [facility] [address] [address] [address] Howie Sanford MICROALBUMIN, RAND URon 12-0 mALB <1.3 Normal <=30.0 [facility] Comment on above: Performed By: #### M ALBR #### [facility] [address] [place] [address] Dr. Howie Sanford PROF CHEM 8 (BAS METB)on Anion gap [Moles/Vol] 11.5 mmol/L Normal [facility] Comment on above: Performed By: #### B MP, ALT, LIPID #### [facility] [address] [place] [address] Dr. Howie Sanford Calcium [Mass/Vol] 8.9 mg/dL Normal 8.5-10.1 [facility] Comment on above: Performed By: #### B MP, ALT, LIPID #### [facility] [address] [place] [address] Dr. Howie Sanford Chloride [Moles/Vol] 105 mmol/L Normal 98-107 [facility] Comment on above: Performed By: #### B MP, ALT, LIPID #### [facility] [address] [address] [address] Howie Sanford CO2 [Moles/Vol] 30.7 mmol/L Normal 21.0-32.0 [facility] Comment on above: Performed By: #### B MP, ALT, LIPID #### [facility] [address] [address] [address] Howie Sanford Creatinine [Mass/Vol] 0.96 mg/dL Normal 0.70-1.30 [facility] Comment on above: Performed By: #### B MP, ALT, LIPID #### [facility] [address] [address] [address] Howie Sanford EGFR-AF PALAUAN >60 Normal >=60 [facility] Comment on above: Performed By: #### B MP, ALT, LIPID #### [facility] [address] [place] [address] Dr. Howie Sanford EGFR-NON AF PALAUAN >60 Normal >=60 [facility] Comment on above: Performed By: #### B MP, ALT, LIPID #### [facility] [address] [address] [address] Howie Sanford Glucose [Mass/Vol] 115 mg/dL Critically high 74-106 [facility] Comment on above: Performed By: #### B MP, ALT, LIPID #### [facility] [address] [address] [address] Howie Sanford Potassium [Moles/Vol] 4.2 mmol/L Normal 3.5-5.1 [facility] Comment on above: Performed By: #### B MP, ALT, LIPID #### [facility] [address] [address] [address] Howie Sanford Sodium [Moles/Vol] 143 mmol/L Normal 136-145 [facility] Comment on above: Performed By: #### B MP, ALT, LIPID #### [facility] [address] [address] [address] Howie Sanford Urea nitrogen [Mass/Vol] 16.0 mg/dL Normal 7.0-18.0 [facility] Comment on above: Performed By: #### B MP, ALT, LIPID #### [facility] [address] [place], [place] [address] Dr. Howie Sanford Urea nitrogen/Creatinine [Mass ratio] 16.7 mg/mg Normal [facility] Comment on above: Performed By: #### B MP, ALT, LIPID #### [facility] [address] [place], [place] [address] Dr. Howie Sanford SGPTon 05-17-2022 ALT [Catalytic activity/Vol] 25 U/L Normal 16-63 [facility] Comment on above: Performed By: #### B MP, ALT, LIPID #### [facility] [address] [place], [place] [address] Dr. Howie Sanford XR MODIFIED BARIUM SWALLOWon [...] by: ELIS LAZO Date: 2022-05-15 15:55 Normal [facility] Vital Signs Date Time Vital Sign Value Performing Clinician Facility 08-19-2024 [id number] Body height 175.26 cm [facility] 08-19-2024 10:51-0400 Body mass index (BMI) [Ratio] 30.8 kg/m2 [facility] 08-19-2024 10:51-0400 Body weight 94.8 kg [facility] 08-19-2024 10:51-0400 Diastolic blood pressure 70 mm[Hg] [facility] 08-19-2024 10:51-0400 Heart rate 70 /min [facility] 08-19-2024 10:51-0400 Respiratory rate 12 /min [facility] 08-19-2024 10:51-0400 Systolic blood pressure 152 mm[Hg] [facility] 08-13-2024 11:05-0500 Body height 175.26 cm [facility] 08-13-2024 11:05-0500 Body mass index (BMI) [Ratio] 30.8 kg/m2 [facility] 08-13-2024 11:05-0500 Body weight 94.8 kg [facility] 08-13-2024 11:05-0500 Diastolic blood pressure 65 mm[Hg] [facility] 08-13-2024 11:05-0500 Heart rate 93 /min [facility] 08-13-2024 11:05-0500 Respiratory rate 12 /min [facility] 08-13-2024 11:05-0500 Systolic blood pressure 131 mm[Hg] [facility] 08-06-2024 10:34-0500 Body height 175.26 cm [facility] 08-06-2024 10:34-0500 Body mass index (BMI) [Ratio] 30.9 kg/m2 [facility] 08-06-2024 10:34-0500 Body weight 94.91 kg [facility] 08-06-2024 10:34-0500 Diastolic blood pressure 65 mm[Hg] [facility] 08-06-2024 10:34-0500 Heart rate 90 /min [facility] 08-06-2024 10:34-0500 Respiratory rate 12 /min [facility] 08-06-2024 10:34-0500 SaO2% (BldA) [Mass fraction] 95 % [facility] 08-06-2024 10:34-0500 Systolic blood pressure 132 mm[Hg] [facility] 08-03-2024 12:14-0500 Diastolic blood pressure 67 mm[Hg] Jya Peralta MD [facility] 08-03-2024 12:14-0500 Systolic blood pressure 132 mm[Hg] Jay Peralta MD [facility] 03-16-2024 11:35-0400 Body height 175.26 cm [facility] 03-16-2024 11:35-0400 Body mass index (BMI) [Ratio] 30.7 kg/m2 [facility] 03-16-2024 11:35-0400 Body weight 94.51 kg [facility] 03-16-2024 11:35-0400 Diastolic blood pressure 66 mm[Hg] [facility] 03-16-2024 11:35-0400 Heart rate 84 /min [facility] 03-16-2024 11:35-0400 Respiratory rate 12 /min [facility] 03-16-2024 11:35-0400 Systolic blood pressure 136 mm[Hg] [facility] 01-27-2024 14:39-0400 Diastolic blood pressure 74 mm[Hg] Jay Peralta MD [facility] 01-27-2024 14:39-0400 Systolic blood pressure 130 mm[Hg] Jay Peralta MD [facility] 10-03-2023 09:50-0400 Body height 175.26 cm [facility] 10-03-2023 09:50-0400 Body mass index (BMI) [Ratio] 30.4 kg/m2 [facility] 10-03-2023 09:50-0400 Body weight 93.66 kg [facility] 10-03-2023 09:50-0400 Diastolic blood pressure 70 mm[Hg] [facility] 10-03-2023 09:50-0400 Heart rate 80 /min [facility] 10-03-2023 09:50-0400 Systolic blood pressure 149 mm[Hg] [facility] 02-27-2023 10:15-0400 Body height 175.26 cm Abdiaziz Ball Other [facility] [employer] Other 02-27-2023 10:15-0400 Body mass index (BMI) [Ratio] 30.54 kg/m2 Abdiaziz Ball Other [employer] Other 02-27-2023 10:15-0400 Body weight 93.8 kg Abdiaziz Ball Other [employer] Other 02-27-2023 10:15-0400 Diastolic blood pressure 59 mm[Hg] Abdiaziz Ball Other [employer] Other 02-27-2023 10:15-0400 Respiratory rate 12 /min Abdiaziz Ball Other [employer] Other 02-27-2023 10:15-0400 Systolic blood pressure 127 mm[Hg] Abdiaziz Ball Other [employer] Other 12-02-2022 13:45-0400 Body height 175.26 cm Abdiaziz Ball Other [employer] Other 12-02-2022 13:45-0400 Body mass index (BMI) [Ratio] 30.62 kg/m2 Abdiaziz Ball Other [employer] Other 12-02-2022 13:45-0400 Body weight 94.08 kg Abdiaziz Ball Other [employer] Other 12-02-2022 13:45-0400 Diastolic blood pressure 61 mm[Hg] Abdiaziz Ball Other [employer] Other 12-02-2022 13:45-0400 Respiratory rate 12 /min Abdiaziz Ball Other [employer] Other 12-02-2022 13:45-0400 Systolic blood pressure 133 mm[Hg] Abdiaziz Ball Other [employer] Other Encounters Encounter Date Encounter Type Care Provider Facility Start: 09-13-2024 ambulatory ABDIAZIZ ARRINGTON [facility] Start: 08-23-2024 End: 08-23-2024 Subsequent hospital visit by physician Lilliam Augustine DIRECTOR OF QUALITY CONTROL [facility] Comment on above: Arrived Start: 08-23-2024 amb[facility] Start: 08-19-2024 End: 08-19-2024 ambulatory Geo Ortiz [facility] Work Phone: Start: 08-19-2024 End: 08-19-2024 Patient encounter procedure [facility] Physician [facility] Work Phone: Start: 08-17-2024 End: 08-19-2024 [facility] Start: 08-17-2024 End: 08-19-2024 Subsequent hospital visit by physician Jay Gen Radiologist [facility] Comment on above: Dysphagia, unspecifi ed type; Choking, initial encounter Start: 08-16-2024 Non-patient / Non-visit [facility] Physician [facility] Work Phone: Start: 08-13-2024 End: 08-13-2024 ambulatory [facility] Work Phone: Start: 08-13-2024 End: 08-13-2024 Patient encounter procedure [facility] Physician [facility] Work Phone: Start: 08-06-2024 End: 08-06-2024 ambulatory [facility] Work Phone: Start: 08-06-2024 End: 08-06-2024 Patient encounter procedure [facility] Physician [facility] Work Phone: Start: 08-04-2024 End: 08-04-2024 Doctor Corporate Work Phone: DORITA Wright Start: 08-04-[address] [facility] [place] Start: 08-03-2024 End: 08-03-2024 Office outpatient visit 15 minutes Jay Peralta Work Phone: [facility] Jason Start: 08-03-2024 ambulatory Jay Peralta [facility] [place] Start: 08-02-2024 ambulatory Jay Al Shweiki [facility] Start: 06-29-2024 End: 06-29-2024 Jay Al Shweiki Work Phone: [facility] Start: 06-29-2024 ambulatory Jay Al Shweiki [facility] Start: 05-18-2024 End: 05-18-2024 Jay Al Shweiki Work Phone: [facility] Start: 05-18-2024 ambulatory Jay Al Shweiki [facility] Start: 04-06-2024 End: 04-06-2024 Jay Al Shweiki Work Phone: [facility] [place] Start: 04-06-2024 ambulatory Jay Al Shweiki [facility] Start: 03-16-2024 End: 03-16-2024 ambulatory [facility] Work Phone: Start: 03-16-2024 End: 03-16-2024 Patient encounter procedure [facility] Work Phone: Start: 03-13-2024 Patient encounter procedure [facility] Start: 03-12-2024 Non-patient / Non-visit [facility] Work Phone: Start: 01-27-2024 End: 01-27-2024 Jay Al Shweiki Work Phone: [facility] [place] Start: 01-27-2024 ambulatory Jay Al Shweiki [facility] Start: 11-06-2023 End: 11-06-2023 May Alejandro Mcleod Work Phone: [facility] Start: 10-10-2023 End: 10-10-2023 ambulatory [facility] Start: 10-09-2023 End: 10-09-2023 amb[facility] Start: 10-03-2023 End: 10-03-2023 ambulatory [facility] Work Phone: Start: 10-03-2023 End: 10-03-2023 Patient encounter procedure [facility] Physician [facility] Work Phone: Start: 09-11-2023 End: 09-11-2023October El Rashedy Work Phone: [facility] Start: 08-19-2023 Non-patient / Non-visit [facility] Physician [facility] Professional [facility] Work Phone: Start: 07-17-2023 End: 07-17-2023October El Rashedy Work Phone: RVSadiq Lamoure Start: 07-09-2023 End: 07-09-2023 ambulatory Abdiaziz Arrington Other [facility] Other Start: 07-09-2023 Telephone encounter Abdiaziz Arrington G Occupational Nurse Start: 06-04-2023 End: 06-04-2023October El Rashedy Work Phone: [facility] Start: 04-30-2023 End: 04-30-2023 Ivonne Cardoso Alkaliby Work Phone: [facility] Start: 04-02-2023 End: 04-02-2023 Ivonne Cardoso Alkaliby Work Phone: [facility] Start: 03-05-2023 End: 03-05-2023 Ivonne M Alkaliby Work Phone: [facility] Start: 02-27-2023 End: 02-27-2023 ambulatory Abdiaziz Arrington Other [facility] Other Start: 02-27-2023 Office outpatient visit 25 minutes Abdiaziz Arrington [facility] Start: 02-05-2023 End: 02-05-2023 Office outpatient visit 25 minutes Ivonne Oliviaby Work Phone: [facility] Start: 01-02-2023 End: 01-02-2023 Ameya Allred Work Phone: [facility] Giordano Start: 12-02-2022 End: 12-02-2022 ambulatory Abdiaziz Arrington Other [facility] [employer] Other Start: 12-02-2022 Office outpatient visit 25 minutes Abdiaziz Arrington [facility] Start: 11-28-2022 End: 11-28-2022 Ameya Allred Work Phone: [facility] Start: 10-30-2022 End: 10-30-2022 Office outpatient visit 25 minutes Ivonne Cardoso Alkaliby Work Phone: [facility] Start: 09-18-2022 End: 09-18-2022 Ivonne M Alkaliby Work Phone: [facility] Start: 09-18-2022 End: 09-19-2022 ambulatory Mikhail HOBSON Facility:[facility] Start: 09-18-2022 End: 09-18-2022 Patient encounter procedure Mikhail HOBSON [facility] Start: 08-21-2022 End: 08-21-[address] ABDIAZIZ ARRINGTON Facility:[facility] Start: 08-15-2022 End: 08-16-[address] ABDIAZIZ ARRINGTON Facility:[facility] Start: 08-14-2022 End: 08-14-2022 Ivonne Cardoso Alkaliby Work Phone: [facility] Start: 07-17-2022 End: 07-17-2022 Ivonne Cardoso Alkaliby Work Phone: [facility] Start: 06-19-2022 End: 06-19-2022 Ivonne Cardoso Alkal[facility]y Work Phone: [facility] Start: 06-09-2022 End: 06-10-[address] ABDIAZIZ ARRINGTON Facility:[facility] Start: 05-22-2022 End: 05-22-2022 Ivonne Cardoso Alkaliby Work Phone: [facility] Start: 05-20-2022 End: 06-08-[address] ABDIAZIZ ARRINGTON Facility:[facility] Start: 05-17-2022 End: 05-18-[address] ABDIAZIZ ARRINGTON Facility:[facility] Start: 05-15-2022 End: 05-16-[address] ABDIAZIZ ARRINGTON Facility:[facility] Start: 04-24-2022 End: 04-24-2022 Ahmed M Alkaliby Work Phone: [facility] Start: 03-28-2022 End: 03-28-2022 Ahmed M Alkaliby Work Phone: [facility] Start: 02-20-2022 End: 02-20-2022 Ahmed M Alkaliby Work Phone: [facility] Start: 2022 End: 2022 Ahmed M Alkaliby Work Phone: [facility] [place] Start: 12-27-2021 End: 12-28-[address] ABDIAZIZ ARRINGTON Facility:[facility] Start: 11-28-2021 End: 11-28-2021 Office outpatient visit 25 minutes Ahmed M Alkaliby Work Phone: [facility] Start: 10-31-2021 End: 10-31-2021 Ahmed M Alkaliby Work Phone: [facility] Start: 09-19-2021 End: 09-19-2021 Office outpatient visit 15 minutes Ahmed M Alkaliby Work Phone: [facility] Start: 08-22-2021 End: 08-22-2021 Ahmed M Alkaliby Work Phone: [facility] Start: 07-25-2021 End: 07-25-2021 Ahmed M Alkaliby Work Phone: [facility] Start: 06-20-2021 End: 06-20-2021 Ahmed M Alkaliby Work Phone: [facility] Start: 05-09-2021 End: 05-09-2021 Mehrdad K Lorenza Work Phone: [facility] Start: 04-04-2021 End: 04-04-2021 Office outpatient visit 25 minutes Mehrdad Lyon Lorenza Work Phone: [facility] Start: 02-14-2021 End: 02-14-2021 Mehrdad K Lorenza Work Phone: [facility] Start: 12-13-2020 End: 12-13-2020 Mehrdad Lyon Lorenza Work Phone: [facility] Start: 11-01-2020 End: 11-01-2020 Office outpatient visit 15 minutes Mehrdad Lyon Lorenza Work Phone: [facility] Start: 10-03-2020 End: 10-03-2020 Office outpatient visit 25 minutes Mehrdad Lyon Lorenza Work Phone: [facility] Start: 08-02-2020 End: 08-02-2020 Mehrdad Lyon Lorenza Work Phone: [facility] Start: 07-05-2020 End: 07-05-2020 Mehrdad Lyon Lorenza Work Phone: [facility] Start: 05-16-2020 End: 05-16-2020 Mehrdad Lyon Lorenza Work Phone: [facility] Start: 03-28-2020 End: 03-28-2020 Mehrdad Lyon Lorenza Work Phone: [facility] Start: 01-18-2020 End: 01-18-2020 Mehrdad Lyon Lorenza Work Phone: [facility] Start: 12-07-2019 End: 12-07-2019 Mehrdad Lyon Lorenza Work Phone: [facility] Start: 10-27-2019 End: 10-27-2019 Mehrdad K Lorenza Work Phone: [facility] Start: 08-16-2019 End: 08-16-2019 Office outpatient new 45 minutes Pirti Jensen Work Phone: [facility] Start: 09-14-2012 End: 09-14-2012 Mehrdad Britt Work Phone: [facility] Start: 08-26-2012 End: 08-26-2012 Office outpatient new 45 minutes Mehrdad Britt Work Phone: [facility] Procedures Date Procedure Procedure Detail Performing Clinician Start: 08-17-2024 Radiologic exam swal low function contrast study Abdiaziz Arrington DO Work Phone: Start: 08-03-2024 OCT No Charge Jay Peralta Start: 08-03-2024 End: 08-03-2024 OCT No Charge Uni Or Bi Jay Boyle i, MD Start: 06-29-2024 End: 06-29-2024 Intravitreal njx pharmacologic agt spx Jay Peralta MD Start: 06-29-2024 End: 06-29-2024 Vabysmo Prefilled Syringe Jay Aguirre MD Start: 06-29-2024 Vabysmo Prefilled Syringe Jay Peralta Start: 05-18-2024 End: 05-18-2024 Computerized ophthalmic imaging retina Jay Peralta MD Start: 05-18-2024 End: 05-18-2024 Intravitreal njx pharmacologic agt spx Jay Peralta MD Start: 05-18-2024 End: 05-18-2024 Vabysmo Prefilled Syringe Jay Aguirre MD Start: 05-18-2024 Vabysmo Prefilled Syringe Jay Prealta Start: 04-06-2024 End: 04-06-2024 Computerized ophthalmic imaging [...] End: 06-04-2023 Eylea 1mg Pre-filled Syringe Jay Peralta MD Start: 06-04-2023 End: 06-04-2023 Intravitreal njx pharmacologic agt spx Jay Peralta MD Start: 04-30-2023 End: 04-30-2023 Computerized ophthalmic imaging retina Jay Peralta MD Start: 04-30-2023 End: 04-30-2023 Eylea 1mg Pre-filled Syringe Jay Peralta MD Start: 04-30-2023 End: 04-30-2023 Intravitreal njx pharmacologic agt spx Jay Peralta MD Start: 04-02-2023 End: 04-02-2023 Computerized ophthalmic imaging retina Jay Peralta MD Start: 04-02-2023 End: 04-02-2023 Eylea 1mg Pre-filled Syringe Jay Peralta MD Start: 04-02-2023 End: 04-02-2023 Intravitreal njx pharmacologic agt spx Jay Peralta MD Start: 03-05-2023 End: 03-05-2023 Computerized ophthalmic imaging retina Jay Peralta MD Start: 03-05-2023 End: 03-05-2023 Eylea 1mg Pre-filled Syringe Jay Peralta MD Start: 03-05-2023 End: 03-05-2023 Intravitreal njx pharmacologic agt spx Jay Peralta MD Start: 02-05-2023 End: 02-05-2023 Computerized ophthalmic imaging retina Jay Peralta MD Start: 02-05-2023 End: 02-05-2023 Eylea 1mg Pre-filled Syringe Jay Peralta MD Start: 02-05-2023 End: 02-05-2023 Intravitreal njx pharmacologic agt spx Jay Peralta MD Start: 01-02-2023 End: 01-02-2023 Computerized ophthalmic imaging retina Jay Peralta MD Start: 01-02-2023 End: 01-02-2023 Eylea 1mg Pre-filled Syringe Jay Peralta MD Start: 01-02-2023 End: 01-02-2023 Intravitreal njx pharmacologic agt spx Jay Peralta MD Start: 11-28-2022 End: 11-28-2022 Computerized ophthalmic imaging retina Jay Peralta MD Start: 11-28-2022 End: 11-28-2022 Eylea 1mg Pre-filled Syringe Jay Peralta MD Start: 11-28-2022 End: 11-28-2022 Intravitreal njx pharmacologic agt spx Jay Peralta MD Start: 10-30-2022 End: 10-30-2022 Computerized ophthalmic imaging retina Jay Peralta MD Start: 10-30-2022 End: 10-30-2022 Eylea 1mg Pre-filled Syringe Jay Peralta MD Start: 10-30-2022 End: 10-30-2022 Intravitreal njx pharmacologic agt spx Jay Peralta MD Start: 09-18-2022 End: 09-18-2022 Computerized ophthalmic imaging retina Jay Peralta MD Start: 09-18-2022 End: 09-18-2022 Eylea 1mg Pre-filled Syringe Jay Peralta MD Start: 09-18-2022 End: 09-18-2022 Intravitreal njx pharmacologic agt spx Jay Peralta MD Start: 08-14-2022 End: 08-14-2022 Computerized ophthalmic imaging retina Jay Peralta MD Start: 08-14-2022 End: 08-14-2022 Eylea 1mg Pre-filled Syringe Jay Peralta MD Start: 08-14-2022 End: 08-14-2022 Intravitreal njx pharmacologic agt spx Jay Peralta MD Start: 07-17-2022 End: 07-17-2022 Computerized ophthalmic imaging retina Jay Peralta MD Start: 07-17-2022 End: 07-17-2022 Eylea 1mg Pre-filled Syringe Jay Peralta MD Start: 07-17-2022 End: 07-17-2022 Intravitreal njx pharmacologic agt spx Jay Peralta MD Start: 06-19-2022 End: 06-19-2022 Computerized ophthalmic imaging retina Jay Peralta MD Start: 06-19-2022 End: 06-19-2022 Eylea 1mg Pre-filled Syringe Jay Peralta MD Start: 06-19-2022 End: 06-19-2022 Intravitreal njx pharmacologic agt spx Jay Peralta MD Start: 05-22-2022 End: 05-22-2022 Computerized ophthalmic imaging retina Jay Peralta MD Start: 05-22-2022 End: 05-22-2022 Eylea 1mg Pre-filled Syringe Jay Peralta MD Start: 05-22-2022 End: 05-22-2022 Intravitreal njx pharmacologic agt spx Jay Peralta MD Start: 12-09-[address] WOODARD [place] Comment on above: Performed By: #### P [facility] ####[place] [id number], [place] [address]DkAnne Sanford Start: 04-24-2022 End: 04-24-2022 Bevacizumab injection [...] End: 2022 Eylea 1mg Pre-filled Syringe Jay Peralta MD Start: 2022 End: 2022 Intravitreal njx pharmacologic agt spx Jay Peralta MD Start: 11-28-2021 End: 11-28-2021 Computerized ophthalmic imaging retina Jay Peralta MD Start: 11-28-2021 End: 11-28-2021 Eylea 1mg Pre-filled Syringe Jay Peralta MD Start: 11-28-2021 End: 11-28-2021 Intravitreal njx pharmacologic agt spx Jay Peralta MD Start: 10-31-2021 End: 10-31-2021 Computerized ophthalmic imaging retina Jay Peralta MD Start: 10-31-2021 End: 10-31-2021 Eylea 1mg Pre-filled Syringe Jay Peralta MD Start: 10-31-2021 End: 10-31-2021 Intravitreal njx pharmacologic agt spx Jay Peralta MD Start: 09-19-2021 End: 09-19-2021 Eylea 1mg Pre-filled Syringe Jay Peralta MD Start: 09-19-2021 End: 09-19-2021 Fluorescein angrph w/multiframe i&r uni/bi Jay Peralta MD Start: 09-19-2021 End: 09-19-2021 Intravitreal njx pharmacologic agt spx Jay Peralta MD Start: 08-22-2021 End: 08-22-2021 Computerized ophthalmic imaging retina Jay Peralta MD Start: 08-22-2021 End: 08-22-2021 Eylea 1mg Pre-filled Syringe Jay Peralta MD Start: 08-22-2021 End: 08-22-2021 Intravitreal njx pharmacologic agt spx Jay Peralta MD Start: 07-25-2021 End: 07-25-2021 Computerized ophthalmic imaging retina Jay Peralta MD Start: 07-25-2021 End: 07-25-2021 Eylea 1mg Pre-filled Syringe Jay Peralta MD Start: 07-25-2021 End: 07-25-2021 Intravitreal njx pharmacologic agt spx Jay Peralta MD Start: 06-20-2021 End: 06-20-2021 Computerized ophthalmic imaging retina Jay Peralta MD Start: 06-20-2021 End: 06-20-2021 Eylea 1mg Pre-filled Syringe Jay Peralta MD Start: 06-20-2021 End: 06-20-2021 Intravitreal njx pharmacologic agt spx Jay Peralta MD Start: 05-09-2021 End: 05-09-2021 Computerized ophthalmic imaging retina Jay Peralta MD Start: 05-09-2021 End: 05-09-2021 Eylea 1mg Pre-filled Syringe Jay Peralta MD Start: 05-09-2021 End: 05-09-2021 Intravitreal njx pharmacologic agt spx Jay Peralta MD Start: 04-04-2021 End: 04-04-2021 Computerized ophthalmic imaging retina Jay Peralta MD Start: 04-04-2021 End: 04-04-2021 Eylea 1mg Pre-filled Syringe Jay Peralta MD Start: 04-04-2021 End: 04-04-2021 Intravitreal njx [...] 08-02-2020 Intravitreal njx pharmacologic agt spx Jay Al Shweiki MD Start: 07-05-2020 End: 07-05-2020 Bevacizumab injection Jay Peralta MD Start: 07-05-2020 End: 07-05-2020 Computerized ophthalmic imaging retina Jay Peralta MD Start: 07-05-2020 End: 07-05-2020 Intravitreal njx pharmacologic agt spx Jay Prealta MD Start: 05-16-2020 End: 05-16-2020 Bevacizumab injection [...] Start: 10-27-2019 End: 10-27-2019 Bevacizumab injection Jay Peralat MD Start: 10-27-2019 End: 10-27-2019 Computerized ophthalmic [...] Jay Peralta MD Start: 09-14-2012 End: 09-14-2012 Ophth medical xm&eval comprhnsv estab pt 1/> Jay Peralta MD Start: 08-26-2012 End: 08-26-2012 AREDS Counseling Jay Peralta MD Start: 08-26-2012 End: 08-26-2012 ARMD Dilated Exam Jay Peralta MD Start: 08-26-2012 End: 08-26-2012 Fluorescein angrph w/multiframe i&r uni/bi Jay Peralta MD Plan of Treatment Date Care Activity Detail Author Start: 10-04-2024 End: 10-04-2024 Patient encounter procedure 10/04/2024 11:15 AM EDT Appointment [facility] [address] [place] [id number] Lilliam Augustine, DIRECTOR OF QUALITY CONTROL *MCR-Other Dysphagia [facility] Comment on above: *MCR-Other Dysphagia Start: 09-27-2024 End: 09-27-2024 Patient encounter procedure 09/27/2024 11:15 AM EDT Appointment [facility] [address] [place] [id number] Lilliam Augustine, DIRECTOR OF QUALITY CONTROL *MCR-Other Dysphagia [facility] Comment on above: *MCR-Other Dysphagia Start: 09-20-2024 End: 09-20-2024 Patient encounter procedure 09/20/2024 11:30 AM EDT Appointment [facility] [address] [place] [address] Lilliam Augustine, DIRECTOR OF QUALITY CONTROL *MCR-Other Dysphagia [facility] Comment on above: *MCR-Other Dysphagia Start: 09-13-2024 End: 09-13-2024 Patient encounter procedure [facility] Comment on above: *MCR-Other Dysphagia Start: 09-07-2024 Ricardo Goode/ 10 Wk DFE OCT VAB OS (1 Of 3) [facility] Work Phone: Start: 09-06-2024 End: 09-06-2024 Patient encounter procedure 09/06/2024 11:15 AM EDT Appointment [facility] [address] [place] [address] Lilliam Augustine, NATIVIDAD *MCR-Other Dysphagia [facility] Comment on above: *MCR-Other Dysphagia Start: 09-06-2024 End: 09-06-2024 Patient encounter procedure 09/06/2024 8:30 AM EDT Appointment [facility] [address] [place] [address] Lilliam Augustine, NATIVIDAD *MCR-Other Dysphagia [facility] Comment on above: *MCR-Other Dysphagia Start: 08-23-2024 End: 08-23-2024 Patient encounter procedure [facility] Comment on above: *NDJ-Nwachih-Cylyidw n Ball *MCR-Other Dysphagia Start: 06-29-2024 Ricardo Goode 6wk IO Vab OS 3 Of 3 [facility] Work Phone: Start: 04-06-2024 Ricardo Goode/ 10 Wk IO Eyl HD OS OCT [facility] Work Phone: Start: 04-06-2024 Referral to tobacco use cessation counseling program Tobacco cessation counseling [facility] Start: 02-10-2024 Ricardo Goode / 2 Wk FU Eyl HD OS OCT *[place] [facility] Work Phone: Start: 02-08-2024 COVID-19 Vaccine ( season) COVID-19 Vaccine ( season) [employer] Start: 01-08-2024 Influenza vaccination Flu vaccine (# 1) [employer] Start: 05-05-2023 Annual Wellness Visi t (Medicare) Annual Wellness Visit (Medicare) [facility] Start: 03-05-2023 Smoking effects education Tobacco cessation counseling [facility] Start: 02-05-2023 Smoking cessation education Tobacco cessation counseling [facility] Start: 06-19-2022 Smoking cessation assistance Tobacco cessation counseling [facility] Start: 07-25-2021 [facility] Start: 06-20-2021 Smoking cessation education Tobacco cessation counseling [facility] Start: 07-05-2020 Smoking cessation education Tobacco cessation counseling [facility] Start: 01-18-2020 Smoking cessation education Tobacco cessation counseling [facility] Start: 01-18-2020 Patient Education Health Infor mation for You: [employer] Work Phone: Start: 12-07-2019 Patient Education Health Infor mation for You: [employer] Work Phone: Start: 10-27-2019 Smoking cessation education Tobacco cessation counseling [facility] Start: 08-16-2019 Smoking cessation education Tobacco cessation counseling [facility] Start: 01-10-2016 Respiratory Syncytia l Virus (RSV) or age 60 yrs+ (1 - 1-dose 75+ series) Respiratory Syncytial Virus (RSV) or age 60 yrs+ (1 - 1-dose 75+ series) [facility] Start: 1991 Pneumococcal 50+ yea rs Vaccine (1 of 1 - PCV) Pneumococcal 50+ years Vaccine (1 of 1 - PCV) [facility] Start: 1991 Shingles vaccine (1 of 2) Shingles vaccine (1 of 2) [facility] Start: 01-10-1960 DTaP/Tdap/Td vaccine (1 - Tdap) DTaP/Tdap/Td vaccine (1 - Tdap) [facility] Start: 1953 Depression Screen Depression Screen [facility] Comprehensive metabo lic 2000 panel - Serum or Plasma [facility] MR Brain WO contrast [facility] XR Knee - left 4 Views [facility] Immunizations Immunization Date Immunization Notes Care Provider Fa cility 04-29-2022 influenza virus vaccine, split virus (incl. purified surface antigen) Abdiaziz Arrington Other [facility] [employer] Other 04-29-2022 influenza virus vaccine, unspecified formulation [facility] 05-07-2021 influenza virus vaccine, split virus (incl. purified surface antigen) Abdiaziz Arrington Other [place] [employer] Other 05-07-2021 influenza virus vaccine, unspecified formulation [facility] 03-15-2021 diphtheria, tetanus toxoids and acellular pertussis vaccine, unspecified formulation Abdiaziz Arrington Other [facility] 03-30-2020 influenza virus vaccine, split virus (incl. purified surface antigen) Abdiaziz Arrington Other [facility] [employer] Other 03-30-2020 influenza virus vaccine, unspecified formulation [facility] 03-05-2019 influenza virus vaccine, split virus (incl. purified surface antigen) Abdiaziz Arrington Other [facility] [employer] Other 03-05-2019 influenza virus vaccine, unspecified formulation [facility] 03-17-2018 influenza virus vaccine, split virus (incl. purified surface antigen) Abdiaziz Arrington Other [facility] [employer] Other 03-17-2018 influenza virus vaccine, unspecified formulation [facility] 03-20-2017 influenza virus vaccine, split virus (incl. purified surface antigen) Abdiaziz Arrington Other [facility] [employer] Other 03-20-2017 influenza virus vaccine, unspecified formulation [facility] 05-29-2016 pneumococcal conjuga te vaccine, 13 valent Abdiaziz Arrington Other [facility] 03-19-2016 influenza virus vaccine, split virus (incl. purified surface antigen) Abdiaziz Arrington Other [facility] [employer] Other 03-19-2016 influenza virus vaccine, unspecified formulation [facility] 03-09-2013 tetanus and diphther ia toxoids, adsorbed, preservative free, for adult use (5 Lf of tetanus toxoid and 2 Lf of diphtheria toxoid) Abdiaziz Arrington Other [facility] 03-18-2012 pneumococcal polysaccharide vaccine, 23 valent Abdiaziz Arrington Other [facility] Payers Date Payer Category Payer Medicare [id number] 1958 Medicare [id number] 1959 Unknown [id number] 1959 Unknown [id number] 1959 Unknown [id number] 1941 Unknown [id number] 2.16.84 0.1.794460.3.579.2.593 1941 Unknown [id number] 2.16.84 0.1.538178.3.579.2.593 1941 Unknown [id number] 2.16.84 0.1.715571.3.579.2.593 1941 Unknown [id number] 2.16.84 0.1.084628.3.579.2.593 1941 Unknown [id number] 2.16.84 0.1.030022.3.579.2.593 1941 Unknown [id number] 2.16.84 0.1.289299.3.579.2.593 1941 Unknown [id number] 2.16.84 0.1.635259.3.579.2.593 1941 Unknown [id number] 2.16.8 40.1.522223.3.579.2.727 1941 Unknown [id number] 2.16.8 40.1.436541.3.579.2.174 1941 Unknown [id number] 2.16.8 40.1.382951.3.579.2.174 1941 Unknown [id number] 2.16.8 40.1.259886.3.579.2.174 1941 Unknown [id number] 2.16.8 40.1.223737.3.579.2.174 1941 Unknown [id number] 2.16.8 40.1.518475.3.579.2.174 1941 Unknown [id number] 2.16.8 40.1.575565.3.579.2.174 1941 Unknown [id number] 2.16.84 0.1.236035.3.579.2.1347 1941 Unknown [id number] 2.16.84 0.1.835515.3.579.2.1347 1941 Unknown [id number] 2.16.84 0.1.749293.3.579.2.7 1941 Unknown [id number] 2.16.84 0.1.798771.3.579.2.1347 1941 Unknown [id number] 2.16.84 0.1.770215.3.579.2.1347 1941 Unknown [id number] 2.16.84 0.1.180932.3.579.2.1347 1941 Unknown [id number] 2.16.84 0.1.806698.3.579.2.7 1941 Unknown [id number] 2.16.840 .1.244472.3.579.2.1347 Social History Date Type Detail Facility Sex Assigned At Amorelie Other Start: 1940 Sex Assigned At Male [facility] Start: 01-27-2024 End: 08-04-2024 Tobacco smoking status NHIS Unknown if ever smoked [facility] Start: 01-27-2024 Alcohol intake (observable entity) Alcohol Use Details [facility] Start: 01-27-2024 Health-related behavior (observable entity) Caffeine Use Details [facility] Start: 05-18-2024 Alcohol intake Alcohol Use Details [facility] Start: 03-11-2023 End: 08-06-2024 Sex Male (finding) [facility] Start: 1940 Sex assigned at Not on file [facility] NEGATED: Highlighted rowStart: 01-27-2024 History of tobacco [...] 08-19-2023 End: 08-19-2023 Clinical Notes 08-21-2022 to 08-23-2024 Lilliam Augustine, NATIVIDAD - 08/23/2024 12:00 PM EDT Note Date & Type Note Facility 08-23-2024 History of Present illness Narrative [facility] Outpatient Speech Language Pathology DAILY TREATMENT NOTE Date: 08/23/2024 Patient s Name: Ricardo Goode Date of : 1940 (84 y.o.) Gender: male [facility] #: [id number] Referring physician: Abdiaziz Arrington INSURANCE DIRECTOR OF QUALITY CONTROL Insurance Information: Medicare Total # of Visits in Current Year: 1 No Show: 0 Canceled Appointment: 0 Total # of Visits Since Initial Evaluation: 1 PAIN Pain: No Pain Rating (0-10 pain scale): 0 SUBJECTIVE Patient presents to clinic with his daughter, who left the room during the session. Patient pleasant and cooperative. No new speech concerns reported. GOALS/ TREATMENT SESSION: Goals Due By: ; 11/03/24 Goal 1: Pt will complete pharyngeal strengthening exercises with adequate strength and coordination x50 to improve pharyngeal phase of swallow. Instructing and modeling exercises for HEP, including effortful swallow, Davi, Patt, bear down/epiglottic closure, and chin tuck against resistance. Completing exercises x40 []Met [x]Partially met []Not met Goal 2: The patient will tolerate recommended diet without observed clinical signs of aspiration Did not address []Met []Partially met []Not met Goal 3: The patient will recall and perform compensatory strategies, with no cues. 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 Goal progressing. See STG data []Met [x]Partially met []Not met EDUCATION New education provided to patient/family/caregiver: Yes: HEP Method of education: Discussion, Demonstration, and Written Evaluation of patient s response to education: Patient and/or caregiver verbalized understanding and Patient and/or caregiver demonstrated with assistance ASSESSMENT Patient tolerated today s treatment session: Good Comments: PLAN Continue with current plan of care TIME Time treatment session was INITIATED 1205 Time treatment session was STOPPED 1235 Minutes: 30 Charges: 1 Electronically signed by: Lilliam Augustine M.S., CCC-DIRECTOR OF QUALITY CONTROL Date:08/23/2024 documented in this encounter [facility] 08-06-2024 Evaluation note Diagnosis Onset Date Resolution BPPV (benign paroxysmal positional vertigo) acute July 10:30am Chronic bronchitis, mucopurulent acute August 06, 2024 10:30am Dysphagia acute August 06, 2024 10:30am Elevated cholesterol acute 2024 10:30am Essential hypertension acute 2024 10:30am Hyperprolactinemia acute 2024 10:30am Type 2 diabetes mellitus with hyperglycemia acute July 10:30am Inflammatory arthritis acute [facility] 2024 10:53am Pseudogout of left knee acute arch 2024 10:53am Left knee pain noneactive August 13, 2024 10:53am [facility] Work Phone: 1(630) 763-230202-28-2025 Evaluation note* Diagnosis Onset Date Resolution Status Admit Date BPPV (benign paroxysmal positional vertigo) acute July 10:30am Chronic bronchitis, mucopurulent acute August 06 025 10:30am Dysphagia acute August 06, 2024 10:30am Elevated cholesterol acute 2024 10:30am Essential hypertension acute Fe bru2024 10:30am Hyperprolactinemia acute 2024 10:30am Type 2 diabetes mellitus wit h hyperglycemia acute August 06 025 10:30am Inflammatory arthritis acute [facility] 2024 10:53am Pseudogout of left knee acute arch 2024 10:53am Left knee pain noneactive August 13, 2024 10:53am Knee pain, left acute August 10:34am [facility] Work Phone: 1(634) 936-981302-25-2025 Evaluation note* Type Assessment Date assessment Optic neuropathy impression Optic neuropathy: H46.9. Megan al [facility] Work Phone: 1(825) 515-497302-25-2025 History of Present illness Narrative* Encounter Date [...] no visual changes in the left eye. [facility] Work Phone: 1(179) 904-131502-25-2025 Instructions* Date Instruction Additional Infor carito Impression/Plan [...] Return in 1 month wi th Mehrdad Birtt MD for INJ AVN OS w/OCT Related [...] changes. Appropriate follow up with primary eye patient care coordinator was recommended. Related to Nonexudative senile macular [...] changes. Appropriate follow up with primary eye patient care coordinator was recommended. 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 May-30-2024 Exudative ARMD The 83 year old male [...] no visual changes in the left eye. [facility] Work Phone: 1(739) 524-851912-10-2024 Instructions* Date Instruction Additional Infor matinez Impression/Plan Related to Exdtv e age-rel mclr [...] changes. Appropriate follow up with primary eye patient care coordinator was recommended. Related to Nonexudative senile macular [...] changes. Appropriate follow up with primary eye patient care coordinator was recommended. 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 Britt for follow up exam and OCT. 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 [facility] Work Phone: 1(365) 456-638208-20-2024 Instructions* Date Instruction Additional Infor mation Impression/Plan [...] intraocular lens Return in 2 months w luis Britt MD for follow up and OCT. [...] changes. Appropriate follow up with primary eye patient care coordinator was recommended. Related to Nonexudative senile macular [...] changes. Appropriate follow up with primary eye patient care coordinator was recommended. Related to Nonexudative senile macular [...] degeneration of retina [facility] Work Phone: 1(202) 469-983909-21-2023 Evaluation note* Encounter Date Diagnosis Assessment Notes [...] abstinence. Beyond quidelines for yearly LDCT lungs [facility] Other 06-26-2023 Evaluation note* Encounter Date Diagnosis [...] R53.83) Push fluids, healthy diet, check labs [facility] Other 03-15-2023 Hospital Discharge instructions Follow Up Care 08/21/2022 16:35:55 With:JOCE BARRETT, Mikhail Murphy, URL Address: [address] [place] [address]- When: Unknown [facility] Consult note* Clinical Note Date No Information [facility] Work Phone: Discharge summary* Clinical Note Date No Information [facility] Work Phone: Evaluation + Plan note No data available for this section [facility] Evaluation noteNo InformationNort Western [employer] Other Evaluation note* Diagnosis Onset Date Resolution Status BPPV (benign paroxysmal positional vertigo) acute Chronic bronchitis, mucopurulent acute Elevated cholesterol acute Essential hypertension acute Type 2 diabetes mellitus with hyperglycemia acute [facility] Work Phone: Evaluation note* Diagnosis Onset Date Resolution Status BPPV (benign paroxysmal positional vertigo) acute Chronic bronchitis, mucopurulent acute Elevated cholesterol acute Essential hypertension acute Medicare annual wellness visit, subsequent acute Type 2 diabetes mellitus with hyperglycemia acute [facility] Work Phone: Evaluation note* Diagnosis Onset Date Resolution Status Admit Date Chronic bronchitis, mucopurulent acu te August 06, 2024 10:30am CLOUD (dyspnea on exertion) acute August 06, 2024 10:30am Elevated cholesterol acute Febr uary 2024 10:30am Essential hypertension acute Fe bruary 2024 10:30am Hyperprolactinemia acute Februa ry 2024 10:30am Type 2 diabetes mellitus wit h hyperglycemia acute August 06, 2 025 10:30am [facility] Work Phone: Evaluation note* Type Assessment Date No Information [facility] Work Phone: Evaluation note* Diagnosis Dysphagia, unspecified type Choking, initial encounter [facility] Clinical Note Date No Information [facility] Work Phone: Hiskeqk general Narrative - Reported* Type Description Date [...] arthroscopy 2002 Hospitalization History see surgical history Amorelie Other Progress note No data available for this section [facility] Progress note* Clinical Note Date No Information [facility] Work Phone: Remmvg for referral (narrative)* Reason Referral for BPPV Diagnosis 1 Benign paroxysmal po sitional vertigo of left ear (H81.12) Referral Organization [facility] ja Referring Provider First Name Abdiaziz Referring Provider Last Name Murphy Referring Provider Specialty Internal Me dicine Referred Organization [facility] Referred Provider Cheli Alejo Referred Address ,[place], [place],[address] Referred Provider Specialty Ear, Nose an d Throat Referral Priority Routine General Notes Mr. Goode presents wit h recurrent episodes of dizziness. He states his symptoms are becoming more frequent and interfere with ADL. His symptoms includes lightheadedness, unsteadiness and spinning. He has loss of hearing and tinnitus. His neurovascular evaluation has not revealed an etiology to his symptoms. The Pilar-Hallpike Maneuver reproduced his symptoms with the left ear dependent. His orthostatic measurements were normal. He has no focal neurologic deficits. Amorelie Other Reason for referral (narrative)* Reason For Referral No Information [facility] Work Phone: Reason for visit Narrative* Imaging (Routine) - Not Required - RTA Specialty Diagnoses / Procedures Referred By Chaitanya riggins Referred To Contact Radiology Diagnoses Dysphagia, unspecified type Choking, initial encounter Procedures [place] MODIFIED BARIUM SWALLOW W VIDEO Abdiaziz Arrington, [address] [place] [address] Phone: tel: fax: Referral ID Status Reason Start Date Expiration Date V isits Requested Visits Authorized [id number] Not Required - RTA 08/12/2024 08/12/2025 1 1 [facility] Summary Purpose Family History Relationship Condition Age [...] Response Recorded Date/ Time Advance Directives No Michelle 24th, 2 024 8:25am Chief Complaint and Reason for [...] knee pain August 13, 2024 10:5 3am Chief Complaint Admit Date check up, bp med concerns August 06, 2024 10:30am knee pain August 13, 2024 10:5 3am increased knee pain August 19, 2024 10: 34am Reason for Visit Admit Date BPPV (benign [...] knee pain August 13, 2024 10:5 3am Knee pain, left August 19, 2024 10: 34am Additional Source Comments (unrecognized sect ion and content) No Status Records FoundNo Status Records FoundNo Status Records FoundNo Status Records Found INFORMATION SOURCE (unrecogn ized section and content) DATE CREATED AUTHOR 09/17/2022 [facility] DATE CREATED AUTHOR AUTHOR'S ORGANIZ ATION 09/19/2022 [facility] [place] [facility] DATE CREATED AUTHOR AUTHOR'S ORGANIZ ATION 08/20/2024 [facility] DATE CREATED AUTHOR AUTHOR'S ORGANIZ ATION 08/22/2024 [facility] Patient Care team informatio n (unrecognized section [...] August 13, 2024 End: August 13, 2024 Team Status: Active Member Role Status Babatunde Arrington DO Primary Care Provide r, Attending Provider Active Start: August 16, 2024 Team Status: Inactive Member Role Status Dates Abdiaziz Arrington , Primary Care Provide r, Attending Provider Active Start: August 19, 2024 End: August 19, 2024 REASON FOR VISIT (unrecogniz ed section [...] BE BASED ON THE PRIMARY CLINICAL RECORDS. [facility]. provides no warranty or guarantee of the accuracy or completeness of information in this document.
--- NOTE | 2024-08-24 09:37 | MR_ITS ---
The [address] [address] Patient Name: JERAD CARRANZA MRN: [id number] date: 1940 Sex: M Assigned Patient Location: MRI Current Patient Location: LAB Accession/Order Number: [id number] Exam Date: 08/24/2024 16:41 Report Date: 08/24/2024 16:44 At the request of: EDVIN HANKS DO Procedure: MR head/brain wo con EXAMINATION: MRI OF THE BRAIN WITHOUT CONTRAST CLINICAL HISTORY: Vision Change, Unsteady Gait, History Of TIA COMPARISON: CT brain 08/06/2020 TECHNIQUE: Multiecho, multiplanar imaging of the brain was performed without enhancement. FINDINGS: No evidence of restriction diffusion is seen on diffusion-weighted imaging. No evidence of blood products are seen on T2 Star imaging. Cortical atrophy with severe chronic microvascular ischemic changes are noted. The likely vascular ischemic changes that appear to extend into the jonny and midbrain. Cerebellum appears grossly unremarkable. Intraorbital contents appear grossly unremarkable. No significant paranasal sinus disease. Midline structures appear grossly unremarkable. 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 NO ACUTE INTRACRANIAL ABNORMALITY IS SEEN. Impression dictated by: Doc Dos Santos Jr., D.O.08/24/2024 4:44 PM Dictation Location: [place] [address] Electronically authenticated by: [id number] Date: 08/24/2024 16:44
== END 2024-08-24 09:26 | disposition home or self-care (01) ==
LOC: MRI 09:27
PROVIDERS: PCP Internal Medicine; Visit Provider Internal Medicine
DX: R42 Dizziness and giddiness (principal); H53.9 Unspecified visual disturbance; R26.81 Unsteadiness on feet; Z86.73 Personal history of transient ischemic attack (TIA), and cerebral infarction without residual deficits
CPT/HCPCS: 70551